=== PATIENT | female | born 1970 | race Caucasian/White ===

== ENCOUNTER 2017-02-28 16:17 | Emergency (ER) | payer OTHER, SELFPAY ==
--- NOTE | 2017-02-28 16:51 | ERPHSYRPT ---
- History of Present Illness Time Seen by Provider: 02/28/17 16:40 Source: patient Exam Limitations: no limitations Physician History: The patient is a 46-year-old female complaining of a sore throat and cough for 3 days. Her voice is now hoarse. She denies fever or chills. She did not receive her influenza vaccination this year. Her past medical history is significant for hypothyroidism with thyroid ablation, hypertension, and diabetes. Timing/Duration: gradual onset Severity: moderate ENT Location: throat Prearrival Treatment: no prearrival treatment Modifying Factors: Improves With: nothing Associated Symptoms: cough, sore throat Allergies/Adverse Reactions: No Known Drug Allergies Allergy (Unverified 02/28/17 16:52) Home Medications: Fluoxetine HCl 20 mg PO DAILY 02/28/17 [History] Levothyroxine Sodium [Tirosint] 137 mcg PO DAILY 02/28/17 [History] Metformin HCl 500 mg [Glucophage 500 MG] 500 mg PO DAILY 02/28/17 [History ] Metoprolol Succinate [Toprol Xl] 75 mg PO DAILY 02/28/17 [History] - Review of Systems Constitutional: No Fever, No Chills Eyes: No Symptoms Ears, Nose, & Throat: Throat Pain, Hoarse Respiratory: Cough Cardiac: No Chest Pain, No Edema, No Syncope Abdominal/Gastrointestinal: No Abdominal Pain, No Nausea, No Vomiting, No Diarrhea Genitourinary Symptoms: No Dysuria Musculoskeletal: No Back Pain, No Neck Pain Skin: No Rash Neurological: No Dizziness, No Focal Weakness, No Sensory Changes Psychological: No Symptoms Endocrine: No Symptoms Hematologic/Lymphatic: No Symptoms Immunological/Allergic: No Symptoms All Other Systems: Reviewed and Negative - Nursing Vital Signs Nursing Vital Signs: Initial Vital Signs Temperature 98.1 F 02/28/17 16:40 Pulse Rate 68 02/28/17 16:40 Respiratory Rate 18 02/28/17 16:40 Blood Pressure 122/72 02/28/17 16:40 O2 Sat by Pulse Oximetry 98 02/28/17 16:40 Pain Scale Pain Intensity 6 - Physical Exam General Appearance: no apparent distress, alert Eye Exam: bilateral eye: PERRL, EOMI Ear Exam: bilateral ear: auricle normal Nasal Exam: normal inspection Throat Exam: tongue swollen, tonsillar exudate Neck Exam: supple Cardiovascular/Respiratory Exam: normal breath sounds, regular rate/rhythm Abdominal Exam: non-tender, soft Neurologic Exam: alert, oriented x 3, sensation nml, No motor deficits Skin Exam: normal color, warm, dry SpO2 Interpretation: normal Ordered Tests: Active Orders 24 hr Category Date Time Status CULTURE, THROAT Stat Lab 02/28/17 17:07 Received STREP SCREEN-BETA A Stat Lab 02/28/17 17:07 Completed Lab/Rad Data: Laboratory Results 02/28/17 Range/Units 17:07 Streptococcus Screen NEGATIVE (Negative) - Progress Progress: unchanged Counseled pt/family regarding: lab results, diagnosis - Departure Time of Disposition: 17:36 Departure Disposition: Home Clinical Impression: Pharyngitis Condition: Stable Critical Care Time: No Additional Instructions: You have viral pharyngitis. The strep test was negative. Take Tylenol and ibuprofen as needed. Gargle with warm salt water as often as needed. Follow- up as needed.
[2017-02-28 17:55] VITALS: BP 106/63; PULSE 80; O2SAT 97
== END 2017-02-28 17:55 | disposition home or self-care (01) ==
LOC: ED 16:17
DX: J02.9 Acute pharyngitis, unspecified (principal)
CPT/HCPCS: 87070; 87430; 99283

== ENCOUNTER 2018-05-04 19:38 | Emergency (ER) | payer OTHER | END 2018-05-04 22:03 | disposition home or self-care (01) | LOC: ED 19:38 ==

== ENCOUNTER 2018-10-25 00:02 | Emergency (ER) | payer OTHER ==
--- NOTE | 2018-10-25 00:57 | ERPHSYRPT ---
- History of Present Illness Source: patient Exam Limitations: no limitations Patient Subjective Stated Complaint: Pt states, "I was at work at just felt sick. I would burp and vomit up in my throat, had indigestion and burning sensation. pt c/o having diarrhea as well but this has been an ongoing issue for years". Pt to see Dr. Alvarado on Monday regarding her diarrhea. Triage Nursing Assessment: pt ambulated to rm 5, alert and oriented. pt was at work tonight and started feeling ill. Pt kept burping and noticed vomiting in her mouth, gerd/indigestion and a burning in her throat. Pt c/o chronic diarrhea. Last diarrhea was 2300 tonight. Pt eating and drinking without diff. No bouts of nausea, vomiting or diarrhea since in the ER. Pt very talkative. Pt just started this job on Monday and needs a note since she left early. Physician History: the patient has a history of chronic diarrhea for over one year, most likely closer to 3 years. She was at work this evening and did not feel well, with some reflux symptoms with an acid sensation up the back of her throat, causing her malaise and having to leave work. Prior to arriving into the emergency department, the patient did not have any symptoms and denied any acute diarrhea at this time. Denies any abdominal pain, back pain, chest pain, shortness of breath, fevers, skin rashes, or any reflux symptoms or worsening malaise. Timing/Duration: today, resolved prior to arrival Severity: moderate Modifying Factors: Improves With: movement. Worsens With: cold therapy, eating , immobilization, medication, rest Associated Symptoms: heartburn, other (diarrhea), No nausea, No vomiting, No abdominal pain, No shortness of breath, No diaphoresis, No cough, No chills, No chest pain, No fever, No headaches, No loss of appetite, No malaise, No rash, No syncope, No seizure, No weakness Allergies/Adverse Reactions: blue dye Allergy (Verified 05/04/18 19:57) Home Medications: Levothyroxine Sodium [Tirosint] 125 mcg PO DAILY 02/28/17 [History] Metformin HCl 500 mg [Glucophage 500 MG] 500 mg PO DAILY 02/28/17 [History ] Metoprolol Succinate [Toprol Xl] 75 mg PO DAILY 02/28/17 [History] Norethindrone-Ethinyl Estrad [Pirmella 1-35-28 Tablet] 1 tab PO DAILY 10/25/18 [ History] PARoxetine HCl [Paroxetine HCl] 20 mg PO DAILY 10/25/18 [History] Hx Tetanus, Diphtheria Vaccination/Date Given: No (unknown) Hx Influenza Vaccination/Date Given: No Hx Pneumococcal Vaccination/Date Given: No Immunizations Up to Date: No - Review of Systems Constitutional: Malaise, No Fever, No Chills Eyes: No Symptoms, No Vision Changes Ears, Nose, & Throat: No Symptoms, No Mouth Swelling, No Painful Swallowing Respiratory: No Cough, No Dyspnea Cardiac: No Chest Pain, No Edema, No Syncope Abdominal/Gastrointestinal: Diarrhea, No Abdominal Pain, No Nausea, No Vomiting Genitourinary Symptoms: No Dysuria, No Hematuria, No Flank Pain Musculoskeletal: No Back Pain, No Neck Pain Skin: No Rash Neurological: No Dizziness, No Focal Weakness, No Sensory Changes Psychological: No Symptoms Endocrine: No Symptoms, No Excessive Sweating Hematologic/Lymphatic: No Easy Bleeding, No Easy Bruising All Other Systems: Reviewed and Negative - Past Medical History Pertinent Past Medical History: Yes Neurological History: Seizures, Other ENT History: No Pertinent History Cardiac History: Hypertension Respiratory History: No Pertinent History Endocrine Medical History: Diabetes Type II, Hypothyroidism Musculoskeletal History: Osteoarthritis GI Medical History: No Pertinent History History: No Pertinent History Psycho-Social History: Anxiety, Depression Female Reproductive Disorders: No Pertinent History Other Medical History: HX OF SEIZURES A CHILD BUT NOT ANY FOR YEARS AND IS NOT ON ANY MEDICATIONS. ANXIETY. SX HX - CHOLECYSTECTOMY - Past Surgical History Past Surgical History: Yes Neuro Surgical History: No Pertinent History Cardiac: No Pertinent History Respiratory: No Pertinent History Gastrointestinal: Cholecystectomy Genitourinary: No Pertinent History Musculoskeletal: No Pertinent History Female Surgical History: No Pertinent History Other Surgical History: thyroid removed with "radioactive iodine pill" - Social History Smoking Status: Former smoker Exposure to second hand smoke: No Drug Use: none Patient Lives Alone: Yes - Female History Hx Last Menstrual Period: 10/21/18 Hx Now: No - Nursing Vital Signs Nursing Vital Signs: Initial Vital Signs Temperature 98.0 F 10/25/18 00:12 Pulse Rate 78 10/25/18 00:12 Respiratory Rate 17 10/25/18 00:12 Blood Pressure 112/85 10/25/18 00:12 O2 Sat by Pulse Oximetry 100 10/25/18 00:12 Pain Scale Pain Intensity 0 - Physical Exam General Appearance: no apparent distress, alert Eye Exam: PERRL/EOMI, eyes nml inspection Ears, Nose, Throat Exam: normal ENT inspection, TMs normal, pharynx normal, moist mucous membranes, No dry mucous membranes, No pharyngeal erythema, No tonsillar exudate Neck Exam: normal inspection, non-tender, supple, full range of motion, No meningismus, No Brudzinski, No Kernig's, No lymphadenopathy Respiratory Exam: normal breath sounds, lungs clear, airway intact, No respiratory distress, No accessory muscle use, No crackles/rales, No rhonchi, No wheezing, No stridor Cardiovascular Exam: regular rate/rhythm, normal heart sounds, normal peripheral pulses, capillary refill <2 sec Gastrointestinal/Abdomen Exam: soft, normal bowel sounds, No tenderness, No mass , No pulsatile mass, No rebound Back Exam: normal inspection, normal range of motion, No CVA tenderness, No vertebral tenderness Extremity Exam: normal inspection, normal range of motion, pelvis stable Neurologic Exam: alert, oriented x 3, cooperative, normal mood/affect, nml cerebellar function, nml station & gait, sensation nml, No motor deficits Skin Exam: normal color, warm, dry, No rash, No jaundice, No cyanosis Lymphatic Exam: No adenopathy SpO2 Interpretation: normal SpO2: 100 O2 Delivery: Room Air Ordered Tests: Medication Summary Discontinued Medications Generic Name Dose Route Start Last Admin Trade Name Freq PRN Reason Stop Dose Admin Diphenoxylate HCl/Atropine 1 tablet 10/25/18 00:53 Lomotil PO 10/25/18 00:54 STAT ONE Famotidine 20 mg 10/25/18 00:54 Pepcid 20 Mg PO 10/25/18 00:55 STAT ONE - Progress Progress: unchanged Progress Note: 10/25/18 01:10 patient having a benign physical examination with no intra-abdominal findings, no concerning signs or symptoms, hemodynamically in good condition and a chronic issue with diarrhea as well as a reflux on the history, patiently discharged home to follow up with her primary care physician on 10/25/2018. Patient was given a work excuse and so patient could come on 10/24/2018 to the emergency department since she left her work. Counseled pt/family regarding: diagnosis, need for follow-up - Departure Departure Disposition: Home Clinical Impression: Chronic diarrhea, Malaise GERD (gastroesophageal reflux disease) Qualifiers: Esophagitis presence: esophagitis presence not specified Qualified Code(s): K21.9 - Gastro-esophageal reflux disease without esophagitis Condition: Good Critical Care Time: No Referrals: DAY ALVARADO [Primary Care Provider] - 10/25/18 Instructions: Diarrhea and Traveler's Diarrhea, Adult (DC), Diarrhea in Adolescents and Adults, Acid Reflux (Gastroesophageal Reflux Disease), Adult (DC ) Forms: Work/School Release Form
[2018-10-25] MEDS ORDERED: Lomotil ONE (01:33)
[2018-10-25] MEDS ORDERED: Pepcid 20 MG ONE (01:33)
[2018-10-25] MEDS: Pepcid 20 MG PO ONE (01:34)
[2018-10-25] MEDS: Lomotil PO ONE (01:34)
[2018-10-25 01:50] VITALS: BP 121/68; PULSE 70; O2SAT 99
== END 2018-10-25 01:40 | disposition home or self-care (01) ==
LOC: ED 00:02
DX: K52.9 Noninfective gastroenteritis and colitis, unspecified (principal); R53.81 Other malaise; K21.9 Gastro-esophageal reflux disease without esophagitis
CPT/HCPCS: 99283; A9270-GY

== ENCOUNTER 2019-01-23 16:19 | Emergency (ER) | payer OTHER ==
--- NOTE | 2019-01-23 17:07 | ERPHSYRPT ---
- History of Present Illness Time Seen by Provider: 01/23/19 16:50 Historian: patient Exam Limitations: no limitations Patient Subjective Stated Complaint: pt here for 3 loose stools today,she had to leave work early, no other co's Triage Nursing Assessment: pt alert, walked in, resp easy, skin w/d/p. movea all ext well, abd soft, Physician History: Long history of intermittent diarrhea following Allergies/Adverse Reactions: blue dye Allergy (Verified 01/23/19 16:59) Home Medications: Levothyroxine Sodium [Tirosint] 125 mcg PO DAILY 02/28/17 [History] Metformin HCl 500 mg [Glucophage 500 MG] 500 mg PO DAILY 02/28/17 [History ] Metoprolol Succinate [Toprol Xl] 75 mg PO DAILY 02/28/17 [History] Norethindrone-Ethinyl Estrad [Pirmella 1-35-28 Tablet] 1 tab PO DAILY 10/25/18 [ History] PARoxetine HCl [Paroxetine HCl] 20 mg PO DAILY 10/25/18 [History] Hx Tetanus, Diphtheria Vaccination/Date Given: No (unknown) Hx Influenza Vaccination/Date Given: No Hx Pneumococcal Vaccination/Date Given: No Immunizations Up to Date: Yes - Past Medical History Pertinent Past Medical History: Yes Neurological History: Seizures, Other ENT History: No Pertinent History Cardiac History: Hypertension Respiratory History: No Pertinent History Endocrine Medical History: Diabetes Type II, Hypothyroidism Musculoskeletal History: Osteoarthritis GI Medical History: No Pertinent History History: No Pertinent History Psycho-Social History: Anxiety, Depression Female Reproductive Disorders: No Pertinent History Other Medical History: HX OF SEIZURES A CHILD BUT NOT ANY FOR YEARS AND IS NOT ON ANY MEDICATIONS. ANXIETY. SX HX - CHOLECYSTECTOMY, pt is unsure if she is a diabetic - Past Surgical History Past Surgical History: Yes Neuro Surgical History: No Pertinent History Cardiac: No Pertinent History Respiratory: No Pertinent History Gastrointestinal: Cholecystectomy Genitourinary: No Pertinent History Musculoskeletal: No Pertinent History Female Surgical History: No Pertinent History Other Surgical History: thyroid removed with "radioactive iodine pill" - Social History Smoking Status: Former smoker Exposure to second hand smoke: No Drug Use: none Patient Lives Alone: Yes - Female History Hx Last Menstrual Period: last week Hx Now: No - Nursing Vital Signs Nursing Vital Signs: Initial Vital Signs Temperature 97.5 F 01/23/19 16:50 Pulse Rate 66 01/23/19 16:50 Respiratory Rate 16 01/23/19 16:50 Blood Pressure 121/69 01/23/19 16:50 O2 Sat by Pulse Oximetry 99 01/23/19 16:50 Pain Scale Pain Intensity 0 - Physical Exam SpO2: 99 - Course Nursing assessment & vital signs reviewed: Yes - Radiology Exams Abdomen X-ray Interpretation: Interpreted by me (nonspec gas stool pos: ibs s/s ) Ordered Tests: Active Orders 24 hr Category Date Time Status IV Insertion STAT Care 01/23/19 16:53 Active KUB Stat Exams 01/23/19 18:20 Taken CBC W DIFF Stat Lab 01/23/19 17:03 Completed CMP Stat Lab 01/23/19 17:03 Completed UA W/RFX UR CULTURE Stat Lab 01/23/19 17:33 Completed discussed labs/xrays with patient in depth Lab/Rad Data: Laboratory Result Diagrams 01/23/19 17:03 01/23/19 17:03 Laboratory Results 01/23/19 01/23/19 01/23/19 Range/Units 17:33 17:03 17:03 WBC 9.1 (4.0-10.5) K/mm3 RBC 3.92 L (4.1-5.4) M/mm3 Hgb 11.3 L (12.0-16.0) gm/dl Hct 36.3 (35-47) % MCV 92.6 (78-100) fl MCH 28.8 (26-32) pg MCHC 31.1 L (32-36) g/dl RDW 13.7 (11.5-14.0) % Plt Count 299 (150-450) K/mm3 MPV 9.9 H (6-9.5) fl Gran % 71.3 H (36.0-66.0) % Eos # (Auto) 0.13 (0-0.5) Absolute Lymphs (auto) 1.55 (1.0-4.6) Absolute Monos (auto) 0.90 (0.0-1.3) Lymphocytes % 17.1 L (24.0-44.0) % Monocytes % 9.9 (0.0-12.0) % Eosinophils % 1.4 (0.00-5.0) % Basophils % 0.3 (0.0-0.4) % Absolute Granulocytes 6.44 (1.4-6.9) Basophils # 0.03 (0-0.4) Sodium 141 (137-145) mmol/L Potassium 4.1 (3.5-5.1) mmol/L Chloride 106 (98-107) mmol/L Carbon Dioxide 26 (22-30) mmol/L Anion Gap 12.3 (5-15) MEQ/L BUN 8 (7-17) mg/dL Creatinine 0.69 (0.52-1.04) mg/dL Estimated GFR > 60.0 ML/MIN Glucose 84 (74-106) mg/dL Calcium 8.8 (8.4-10.2) mg/dL Total Bilirubin 0.20 (0.2-1.3) mg/dL AST 20 (14-36) U/L ALT 9 (0-35) U/L Alkaline Phosphatase 63 (38-126) U/L Serum Total Protein 7.5 (6.3-8.2) g/dL Albumin 3.8 (3.5-5.0) g/dL Urine Color STRAW (YELLOW) Urine Appearance CLEAR (CLEAR) Urine pH 7.0 (5-6) Ur Specific [place] 1.005 (1.005-1.025) Urine Protein NEGATIVE (Negative) Urine Ketones NEGATIVE (NEGATIVE) Urine Blood SMALL (0-5) Ras[place]ul Urine Nitrite NEGATIVE (NEGATIVE) Urine Bilirubin NEGATIVE (NEGATIVE) Urine Urobilinogen NEGATIVE (0-1) mg/dL Ur Leukocyte Esterase NEGATIVE (NEGATIVE) Urine WBC (Auto) 0-2 (0-5) /HPF Urine RBC (Auto) NONE (0-2) /HPF U Epithel Cells (Auto) NONE (FEW) /HPF Urine Bacteria (Auto) NONE (NEGATIVE) /HPF Urine Mucus (Auto) SLIGHT (NEGATIVE) /HPF Urine Culture Reflexed NO (NO) Urine Glucose NEGATIVE (NEGATIVE) mg/dL - Progress Progress: improved (diet as discussed follow up with pcp for GI consultation ) - Departure Departure Disposition: Home Clinical Impression: IBS (irritable bowel syndrome) Qualifiers: Irritable bowel syndrome type: with diarrhea Qualified Code(s): K58.0 - Irritable bowel syndrome with diarrhea Condition: Stable Critical Care Time: No Referrals: DAY ORELLANA [Primary Care Provider] -
[2019-01-23 17:08] LABS: Absolute Neutrophil Ct (ANC) 6.44 (1.4-6.9); BASOPHIL % 0.3 % (0.0-0.4); Basophil (Absolute #) 0.03 (0-0.4); Eosinophil % 1.4 % (0.00-5.0); Eosinophil (Absolute #) 0.13 (0-0.5); Hematocrit 36.3 % (35-47); Hemoglobin 11.3 gm/dl (12.0-16.0); Lymphocyte (Absolute #) 1.55 (1.0-4.6); Lymphocytes % 17.1 % (24.0-44.0); Mean Cell Volume 92.6 fl (78-100); Mean Corpuscular Hemoglobin 28.8 pg (26-32); Mean Corpuscular Hgb Concent. 31.1 g/dl (32-36); Mean Platelet Volume 9.9 fl (6-9.5); Monocytes % 9.9 % (0.0-12.0); Neutrophil % 71.3 % (36.0-66.0); Platelet Count 299 K/mm3 (150-450); Red Blood Count 3.92 M/mm3 (4.1-5.4); Red Cell Distribution Width 13.7 % (11.5-14.0); White Blood Count 9.1 K/mm3 (4.0-10.5)
[2019-01-23 17:21] LABS: ALBUMIN 3.8 g/dL (3.5-5.0); ALKALINE PHOSPHATASE 63 U/L (38-126); ANION GAP 12.3 MEQ/L (5-15); BLOOD UREA NITROGEN 8 mg/dL (7-17); CHLORIDE 106 mmol/L (98-107); Calcium 8.8 mg/dL (8.4-10.2); Carbon Dioxide 26 mmol/L (22-30); Creatinine 1 0.69 mg/dL (0.52-1.04); Glucose 84 mg/dL (74-106); Potassium 4.1 mmol/L (3.5-5.1); SGOT/AST 20 U/L (14-36); SGPT/ALT 9 U/L (0-35); SODIUM 141 mmol/L (137-145); Total Protein 7.5 g/dL (6.3-8.2)
[2019-01-23 17:43] VITALS: O2SAT 99
[2019-01-23 17:50] LABS: Appearance CLEAR (CLEAR); Bilirubin NEGATIVE (NEGATIVE); Blood SMALL Ery/ul (0-5); Glucose NEGATIVE (NEGATIVE); Ketones NEGATIVE (NEGATIVE); Leukocyte Esterase NEGATIVE (NEGATIVE); Mucus SLIGHT /HPF (NEGATIVE); Nitrite NEGATIVE (NEGATIVE); Protein,Urine Dip NEGATIVE (Negative); Specific Gravity 1.005 (1.005-1.025); Urobilinogen NEGATIVE mg/dL (0-1); WBC 0-2 /HPF (0-5)
[2019-01-23 18:23] VITALS: BP 121/74; PULSE 62
--- NOTE | 2019-01-24 08:47 | XRAY ---
Indication: Pain. Comparison: None KUB nonacute and nonobstructed with cholecystectomy clips. Solid organs unremarkable. Osseous structures intact with mild degenerative changes throughout the spine/both hips and minimal levoscoliosis. Impression: Negative KUB.
== END 2019-01-23 18:51 | disposition home or self-care (01) ==
LOC: ED 16:19
DX: K58.0 Irritable bowel syndrome with diarrhea (principal); Z79.899 Other long term (current) drug therapy
CPT/HCPCS: 36415; 74018; 80053; 81001; 85025; 99284

== ENCOUNTER 2019-05-21 14:40 | Emergency (ER) | payer OTHER ==
--- NOTE | 2019-05-21 15:23 | ERPHSYRPT ---
- History of Present Illness Time Seen by Provider: 05/21/19 14:58 Source: patient Exam Limitations: no limitations Patient Subjective Stated Complaint: Pt stated that since Monday she has had a dry cough, sore throat, tiredness, and has her chronic diarrhea, she came to be "tested for the Kerns", requested a note for work Triage Nursing Assessment: Pt brought self to the ER, vitals wnl, pulses normal , skin n/w/d, lungs clear, doesn't appear to be in any distress Physician History: Patient is a 40-year-old female with 3 to 4 days duration of dry cough, sore throat and some mild abdominal pain. Denies fever or any other upper respiratory symptoms. Denies shortness of breath. Patient also mentions of diarrhea which is chronic. Patient has some concerns about the coronavirus. Denies any sick contacts or travel out of state. Timing/Duration: day(s) (3-4) Cough Quality/Degree: dry cough Possible Cause: occasional episodes Modifying Factors: Improves With: coughing Associated Symptoms: nasal congestion, nasal drainage, sore throat International travel in last 2 weeks: No Allergies/Adverse Reactions: blue dye Allergy (Verified 05/21/19 15:08) Home Medications: Levothyroxine Sodium [Tirosint] 150 mcg PO DAILY 02/28/17 [History] Metformin HCl 500 mg [Glucophage 500 MG] 500 mg PO DAILY 02/28/17 [History ] Metoprolol Succinate [Toprol Xl] 75 mg PO DAILY 02/28/17 [History] Norethindrone-Ethin. Estradiol [Pirmella 1-35-28 Tablet] 1 tab PO DAILY [History] PARoxetine HCL [Paroxetine HCl] 20 mg PO DAILY 10/25/18 [History] Hx Tetanus, Diphtheria Vaccination/Date Given: No (unknown) Hx Influenza Vaccination/Date Given: No Hx Pneumococcal Vaccination/Date Given: No Travel Risk - International Travel Have you traveled outside of the country in past 3 weeks: No Have you or anyone close to you been diagnosed with or: No Do your reside in a community with a known COVID-19 case?: Yes If Yes where:: [facility] [place] - Coronavirus Screening Has patient experienced Coronavirus symptoms: Yes Symptoms experienced: respiratory symptoms (i.e.Cought,shortness of breath) - Review of Systems Constitutional: No Fever, No Chills Eyes: No Symptoms Ears, Nose, & Throat: Nose Congestion, Sinus Drainage, Throat Pain Respiratory: Cough Cardiac: No Chest Pain, No Edema, No Syncope Abdominal/Gastrointestinal: Abdominal Pain, Diarrhea (chronic), No Nausea, No Vomiting Genitourinary Symptoms: No Dysuria Musculoskeletal: No Back Pain, No Neck Pain Skin: No Rash Neurological: No Dizziness, No Focal Weakness, No Sensory Changes Psychological: No Symptoms Endocrine: No Symptoms - Past Medical History Pertinent Past Medical History: Yes Neurological History: Seizures, Other ENT History: No Pertinent History Cardiac History: Hypertension Respiratory History: No Pertinent History Endocrine Medical History: Diabetes Type II, Hypothyroidism Musculoskeletal History: Osteoarthritis GI Medical History: No Pertinent History History: No Pertinent History Psycho-Social History: Anxiety, Depression Female Reproductive Disorders: No Pertinent History Other Medical History: HX OF SEIZURES A CHILD BUT NOT ANY FOR YEARS AND IS NOT ON ANY MEDICATIONS. ANXIETY. SX HX - CHOLECYSTECTOMY - Past Surgical History Past Surgical History: Yes Neuro Surgical History: No Pertinent History Cardiac: No Pertinent History Respiratory: No Pertinent History Gastrointestinal: Cholecystectomy Genitourinary: No Pertinent History Musculoskeletal: No Pertinent History Female Surgical History: No Pertinent History Other Surgical History: thyroid removed with "radioactive iodine pill" - Social History Smoking Status: Former smoker Exposure to second hand smoke: No Drug Use: none Patient Lives Alone: Yes - Female History Hx Now: No - Nursing Vital Signs Nursing Vital Signs: Initial Vital Signs Temperature 97.8 F 05/21/19 14:57 Pulse Rate 72 05/21/19 14:57 Respiratory Rate 12 05/21/19 14:57 Blood Pressure 129/74 05/21/19 14:57 O2 Sat by Pulse Oximetry 98 05/21/19 14:57 - Physical Exam General Appearance: no apparent distress, alert Eye Exam: PERRL/EOMI, eyes nml inspection Ears, Nose, Throat Exam: normal ENT inspection, TMs normal, moist mucous membranes, pharyngeal erythema Neck Exam: normal inspection, non-tender, supple, full range of motion Respiratory Exam: normal breath sounds, lungs clear, No respiratory distress Cardiovascular Exam: regular rate/rhythm, normal heart sounds Gastrointestinal/Abdomen Exam: soft, No tenderness Pelvic Exam: deferred Back Exam: normal inspection, No CVA tenderness, No vertebral tenderness Extremity Exam: normal inspection, normal range of motion Neurologic Exam: alert, oriented x 3, cooperative, normal mood/affect, sensation nml, No motor deficits Skin Exam: normal color, warm, dry, No rash Lymphatic Exam: No adenopathy SpO2: 98 - Course Nursing assessment & vital signs reviewed: Yes Lab/Rad Data: Laboratory Results 05/21/19 Range/Units 14:47 Influenza Type A Ag NEGATIVE (NEGATIVE) Influenza Type B Ag NEGATIVE (NEGATIVE) RSV (PCR) NEGATIVE (Negative) Group A Strep Antibody NOT DETECTED (NEGATIVE) - Progress Progress: improved Air Movement: good Progress Note: 05/21/19 15:51 Patient without any issues here. No acute distress. All swabs are negative. Patient was content with work-up. Patient realizes it could be allergies and we will treated as such. Few [id number] options were discussed. Will discharge home. Blood Culture(s) Obtained: No Antibiotics given: No Counseled pt/family regarding: lab results, diagnosis, need for follow-up - Departure Departure Disposition: Home Clinical Impression: Allergic rhinitis Condition: Stable Critical Care Time: No Referrals: DAY ORELLANA [Primary Care Provider] - Instructions: Seasonal Allergies (DC) Additional Instructions: Monitor symptoms closely. Consider [id number] allergy medicine. Follow- up with your PCP in 2 to 3 days for recheck. Return to ER if worse. Forms: Work/School Release Form
[2019-05-21 15:38] VITALS: PULSE 65
[2019-05-21 15:44] LABS: INFLUENZA A NEGATIVE (NEGATIVE); INFLUENZA B NEGATIVE (NEGATIVE); RESPIRATORY SYNCTIAL VIRUS NEGATIVE (Negative)
[2019-05-21 16:08] VITALS: BP 123/69; O2SAT 100
== END 2019-05-21 16:08 | disposition home or self-care (01) ==
LOC: ED 14:40
DX: J30.9 Allergic rhinitis, unspecified (principal)
CPT/HCPCS: 87631; 87651; 99283

== ENCOUNTER 2019-12-16 13:28 | Emergency (ER) | payer OTHER ==
--- NOTE | 2019-12-16 13:34 | ERPHSYRPT ---
- History of Present Illness Time Seen by Provider: 12/16/19 13:34 Source: patient Exam Limitations: no limitations Physician History: This is a 49-year-old female who has been asymptomatic except for a fever approximately noon today while at work. Upon patient arrival to the emergency department, her temperature was taken 4 different times and she is afebrile. Again, patient has no other symptoms. However, her work wanted her evaluated. She is aware, upon arrival that she will not be receiving a rapid COVID-19 test. It is a send out test for us in the emergency department in this nonemergent setting. Patient denies headache, she denies cough, she denies dysuria or hematuria, she denies diarrhea, she denies sore throat or earaches. Timing/Duration: today Fever Severity: gone Fever Therapy FEE CLERK: none Associated Symptoms: denies symptoms Allergies/Adverse Reactions: blue dye Allergy (Verified 05/21/19 15:08) Home Medications: Levothyroxine Sodium [Tirosint] 175 mcg PO DAILY 02/28/17 [History] Metoprolol Succinate [Toprol Xl] 75 mg PO DAILY 02/28/17 [History] PARoxetine HCL [Paroxetine HCl] 20 mg PO DAILY 10/25/18 [History] Hx Tetanus, Diphtheria Vaccination/Date Given: No (unknown) Hx Influenza Vaccination/Date Given: No Hx Pneumococcal Vaccination/Date Given: No Travel Risk - International Travel Have you traveled outside of the country in past 3 weeks: No - Coronavirus Screening Are you exhibiting any of the following symptoms?: No Close contact with a COVID-19 positive Pt in past 14-21 Days: No - Review of Systems Constitutional: Fever Eyes: No Symptoms Ears, Nose, & Throat: No Symptoms Respiratory: No Symptoms Cardiac: No Symptoms Abdominal/Gastrointestinal: No Symptoms Genitourinary Symptoms: No Symptoms Musculoskeletal: No Symptoms Skin: No Symptoms Neurological: No Symptoms Psychological: No Symptoms Endocrine: No Symptoms Hematologic/Lymphatic: No Symptoms Immunological/Allergic: No Symptoms All Other Systems: Reviewed and Negative - Past Medical History Pertinent Past Medical History: Yes Neurological History: Seizures, Other ENT History: No Pertinent History Cardiac History: Hypertension Respiratory History: No Pertinent History Endocrine Medical History: Diabetes Type II, Hypothyroidism Musculoskeletal History: Osteoarthritis GI Medical History: No Pertinent History History: No Pertinent History Psycho-Social History: Anxiety, Depression Female Reproductive Disorders: No Pertinent History Other Medical History: HX OF SEIZURES A CHILD BUT NOT ANY FOR YEARS AND IS NOT ON ANY MEDICATIONS. ANXIETY. SX HX - CHOLECYSTECTOMY - Past Surgical History Past Surgical History: Yes Neuro Surgical History: No Pertinent History Cardiac: No Pertinent History Respiratory: No Pertinent History Gastrointestinal: Cholecystectomy Genitourinary: No Pertinent History Musculoskeletal: No Pertinent History Female Surgical History: No Pertinent History Other Surgical History: thyroid removed with "radioactive iodine pill" - Social History Smoking Status: Former smoker Exposure to second hand smoke: No Drug Use: none Patient Lives Alone: Yes - Nursing Vital Signs Nursing Vital Signs: Initial Vital Signs Temperature 98.1 F 12/16/19 14:40 Pulse Rate 62 12/16/19 14:40 Respiratory Rate 20 12/16/19 14:40 Blood Pressure 110/56 12/16/19 14:40 Pain Scale Pain Intensity 0 - Physical Exam General Appearance: no apparent distress, alert, obese Eye Exam: PERRL/EOMI, eyes nml inspection ENT Exam: normal ENT inspection, TMs normal Neck Exam: normal inspection, non-tender, supple, full range of motion, trachea midline Respiratory Exam: normal breath sounds, chest non-tender, lungs clear, no respiratory distress, no accessory muscle use, No respiratory distress Cardiovascular/Chest Exam: normal heart sounds, regular rate/rhythm Gastrointestinal/Abdominal Exam: soft, non tender, no distention, no mass, no guarding, No guarding, No rebound, No tenderness Pelvic Exam: not done Rectal Exam: not done Extremity Exam: non-tender Neurologic Exam: alert, oriented x 3, cooperative, rough planer tender II-XII nml as tested, normal mood/affect, nml cerebellar function, nml station & gait, sensation nml Skin Exam: normal color, warm, dry Lymphatic: No adenopathy SpO2 Interpretation: normal O2 Delivery: Room Air Ordered Tests: Active Orders 24 hr Category Date Time Status UA W/RFX UR CULTURE Stat Lab 12/16/19 14:57 Completed Lab/Rad Data: Laboratory Results 12/16/19 12/16/19 12/16/19 Range/Units 15:20 15:20 14:57 Urine Color YELLOW (YELLOW) Urine Appearance CLEAR (CLEAR) Urine pH 5.0 (5-6) Ur Specific Porter 1.025 (1.005-1.025) Urine Protein NEGATIVE (Negative) Urine Ketones NEGATIVE (NEGATIVE) Urine Blood MODERATE (0-5) Ras/ul Urine Nitrite NEGATIVE (NEGATIVE) Urine Bilirubin NEGATIVE (NEGATIVE) Urine Urobilinogen NEGATIVE (0-1) mg/dL Ur Leukocyte Esterase NEGATIVE (NEGATIVE) Urine WBC (Auto) 3-5 (0-5) /HPF Urine RBC (Auto) 26-50 (0-2) /HPF U Epithel Cells (Auto) RARE (FEW) /HPF Urine Bacteria (Auto) NONE (NEGATIVE) /HPF Urine Mucus (Auto) SLIGHT (NEGATIVE) /HPF Urine Culture Reflexed NO (NO) Urine Glucose NEGATIVE (NEGATIVE) mg/dL Influenza Type A Ag NEGATIVE (NEGATIVE) Influenza Type B Ag NEGATIVE (NEGATIVE) RSV (PCR) NEGATIVE (Negative) Group A Strep Antibody NOT DETECTED (NEGATIVE) - Progress Progress: unchanged Counseled pt/family regarding: lab results, diagnosis, need for follow-up - Departure Departure Disposition: Home Clinical Impression: Encounter for medical screening examination Condition: Stable Critical Care Time: No Referrals: DAY [facility]RELL[facility] [NON-STAFF PHY W/O PRIVILEGES] - Additional Instructions: Drink plenty of fluids. Use Tylenol and ibuprofen if not allergic for any fever or pain control. Contact your primary care physician in 72 hours to see if your Covid test has returned.
[2019-12-16 14:49] VITALS: PULSE 62
[2019-12-16 15:46] LABS: Appearance CLEAR (CLEAR); Bilirubin NEGATIVE (NEGATIVE); Blood MODERATE Ery/ul (0-5); Epithelial Cells RARE /HPF (FEW); Glucose NEGATIVE (NEGATIVE); Ketones NEGATIVE (NEGATIVE); Leukocyte Esterase NEGATIVE (NEGATIVE); Mucus SLIGHT /HPF (NEGATIVE); Nitrite NEGATIVE (NEGATIVE); Protein,Urine Dip NEGATIVE (Negative); RBC 26-50 /HPF (0-2); Specific Gravity 1.025 (1.005-1.025); Urobilinogen NEGATIVE mg/dL (0-1)
[2019-12-16 16:01] LABS: INFLUENZA A NEGATIVE (NEGATIVE); INFLUENZA B NEGATIVE (NEGATIVE); RESPIRATORY SYNCTIAL VIRUS NEGATIVE (Negative)
[2019-12-16 16:43] VITALS: BP 115/59; O2SAT 96
== END 2019-12-16 16:40 | disposition home or self-care (01) ==
LOC: ED 13:28
DX: Z13.9 Encounter for screening, unspecified (principal); E11.9 Type 2 diabetes mellitus without complications; E03.9 Hypothyroidism, unspecified; Z79.899 Other long term (current) drug therapy
CPT/HCPCS: 81001; 87631; 87651; 99283; U0003

== ENCOUNTER 2020-04-18 20:03 | Emergency (ER) | payer OTHER ==
[2020-04-18 20:18] VITALS: O2SAT 98
--- NOTE | 2020-04-18 21:19 | ERPHSYRPT ---
- History of Present Illness Historian: patient Exam Limitations: no limitations Patient Subjective Stated Complaint: Patient states " I am bound up and I have never been this bad and I am exhausted with straining". Triage Nursing Assessment: Patient arrived to ED and ambulated to room without difficulty. Patient gait slow and steady. Patient A/O times 4. Patient able to follow instructions without difficulty. Lungs clear bilateral A/P throughout. Patient denies chest pain or SOB. Patient cap refill < 3 seconds. No S/S of acute respiratory distress noted. Neuro assesment WNL. + BS times 4 quads. ABD soft, round, obese and non-distended. Patient denies any N/V. Patient states she has passed stool multiple times today but only small amounts and it was hard. Patient states she is passing gas. Patient denies any pain or discomfort upon palpitation. + Radial and pedal pulses bilateral. Non-pitting edema noted to bilateral extremities. Patient states her appetite and food intake is her normal. Patient denies pain or discomfort and states she just feels bloated. Physician History: 49 yo wf complains of rectal pain/constipation x 6.5hr. She denies melena/hematochezia/fever/dysuria/hematuria/N/V. Timing/Duration: other (6.5 hr) Activities at Onset: rest Quality: other (rectal pain) Abdominal Pain Onset Location: other (Rectal pain) Pain Radiation: no radiation Severity of Pain-Max: mild Severity of Pain-Current: mild Modifying Factors: Improves With: nothing, defecating Associated Symptoms: denies symptoms Previous symptoms: no prior history Allergies/Adverse Reactions: blue dye Allergy (Verified 04/18/20 20:18) Home Medications: Levothyroxine Sodium [Tirosint] 175 mcg PO DAILY 02/28/17 [History] Metoprolol Succinate [Toprol Xl] 75 mg PO DAILY 02/28/17 [History] PARoxetine HCL [Paroxetine HCl] 30 mg PO DAILY 10/25/18 [History] Oxybutynin Chloride Xl 5 mg [Ditropan XL 5 MG] 5 mg PO DAILY 04/18/20 [History] Hx Tetanus, Diphtheria Vaccination/Date Given: No Hx Influenza Vaccination/Date Given: No Hx Pneumococcal Vaccination/Date Given: No Immunizations Up to Date: Yes Travel Risk - International Travel Have you traveled outside of the country in past 3 weeks: No - Coronavirus Screening Are you exhibiting any of the following symptoms?: No Close contact with a COVID-19 positive Pt in past 14-21 Days: No - Review of Systems Constitutional: No Symptoms Eyes: No Symptoms Ears, Nose, & Throat: No Symptoms Respiratory: No Symptoms Cardiac: No Symptoms Abdominal/Gastrointestinal: Constipation, No Abdominal Pain, No Nausea, No Vomiting, No Diarrhea, No Hematemesis, No Hematochezia, No Melena, No Dysphagia, No Appetite Changes Genitourinary Symptoms: No Symptoms Musculoskeletal: No Symptoms Skin: No Symptoms Neurological: No Symptoms Psychological: No Symptoms Endocrine: No Symptoms Hematologic/Lymphatic: No Symptoms Immunological/Allergic: No Symptoms - Past Medical History Pertinent Past Medical History: Yes Neurological History: Seizures, Other ENT History: No Pertinent History Cardiac History: Hypertension Respiratory History: No Pertinent History Endocrine Medical History: Diabetes Type II, Hypothyroidism Musculoskeletal History: Osteoarthritis GI Medical History: No Pertinent History History: No Pertinent History Psycho-Social History: Anxiety, Depression Female Reproductive Disorders: No Pertinent History Other Medical History: HX OF SEIZURES A CHILD BUT NOT ANY FOR YEARS AND IS NOT ON ANY MEDICATIONS. ANXIETY. SX HX - CHOLECYSTECTOMY - Past Surgical History Past Surgical History: Yes Neuro Surgical History: No Pertinent History Cardiac: No Pertinent History Respiratory: No Pertinent History Gastrointestinal: Cholecystectomy Genitourinary: No Pertinent History Musculoskeletal: No Pertinent History Female Surgical History: No Pertinent History Other Surgical History: thyroid removed with "radioactive iodine pill" - Social History Smoking Status: Former smoker Exposure to second hand smoke: Yes Drug Use: none Patient Lives Alone: Yes Significant Family History: no pertinent family hx - Female History Hx Last Menstrual Period: 04/11/20 Hx Now: No - Nursing Vital Signs Nursing Vital Signs: Initial Vital Signs Temperature 98.8 F 04/18/20 20:15 Pulse Rate 65 04/18/20 20:15 Respiratory Rate 18 04/18/20 20:15 Blood Pressure 132/64 04/18/20 20:15 O2 Sat by Pulse Oximetry 98 04/18/20 20:15 Pain Scale Pain Intensity 0 - Physical Exam General Appearance: no apparent distress Eye Exam: PERRL/EOMI, eyes nml inspection Ears, Nose, Throat Exam: normal ENT inspection, TMs normal, moist mucous membranes Neck Exam: normal inspection, non-tender, supple, full range of motion, No meningismus, No mass, No Brudzinski, No Kernig's Respiratory Exam: normal breath sounds, lungs clear, airway intact Cardiovascular Exam: regular rate/rhythm, normal heart sounds, normal peripheral pulses, No murmur Gastrointestinal/Abdomen Exam: soft, normal bowel sounds, No tenderness Rectal Exam: deferred Back Exam: normal inspection, normal range of motion, No CVA tenderness, No vertebral tenderness Extremity Exam: normal inspection, normal range of motion Neurologic Exam: alert, oriented x 3, cooperative, i&c tech II-XII nml as tested, normal mood/affect, nml cerebellar function, nml station & gait, sensation nml, No motor deficits, No sensory deficit Skin Exam: normal color, warm, dry Lymphatic Exam: No adenopathy SpO2 Interpretation: normal SpO2: 98 O2 Delivery: Room Air - Course Nursing assessment & vital signs reviewed: Yes - Radiology Exams Abdomen X-ray Interpretation: Interpreted by me (Rectal impaction/constipation) Ordered Tests: Active Orders 24 hr Category Date Time Status OBSTR/ACUTE ABDOMEN SERIES Stat Exams 04/18/20 20:36 Taken - Progress Progress Note: 04/18/20 21:27 Pt given Fleets enema to take home, along w Rx for Lactulose Counseled pt/family regarding: need for follow-up, rad results - Departure Departure Disposition: Home Clinical Impression: Constipation Condition: Stable Critical Care Time: No Referrals: MARIELA AGUIRRE [Primary Care Provider] - Instructions: Constipation, Adult (DC) Additional Instructions: Try Fleets enemas and start Lactulose Increase fluid intake Start a daily stool softener Prescriptions: Lactulose 20 gm PO BID PRN PRN #200 ml PRN Reason: Constipation
[2020-04-18 21:44] VITALS: BP 121/76; PULSE 65
--- NOTE | 2020-04-19 07:29 | XRAY ---
Indication: Constipation. Comparison: [facility] January 23, 2019. 2 view abdomen remains nonacute and nonobstructed with now mild diffuse fecal debris predominantly in the right hemicolon. Stable bony degenerative changes, pelvic phleboliths, and cholecystectomy clips. Single PA chest demonstrates normal heart and lungs with incidental right hemidiaphragm elevation. Bony thorax intact with minimal degenerative changes. Impression: Negative abdomen. Nonacute 1 view chest.
== END 2020-04-18 21:44 | disposition home or self-care (01) ==
LOC: ED 20:03
DX: K59.00 Constipation, unspecified (principal); K62.89 Other specified diseases of anus and rectum; Z79.899 Other long term (current) drug therapy; I10 Essential (primary) hypertension; E11.9 Type 2 diabetes mellitus without complications; E03.9 Hypothyroidism, unspecified
CPT/HCPCS: 74022; 99283

== ENCOUNTER 2020-06-20 20:47 | Emergency (ER) | payer OTHER ==
--- NOTE | 2020-06-20 21:38 | ERPHSYRPT ---
- History of Present Illness Time Seen by Provider: 06/20/20 21:24 Source: patient Exam Limitations: no limitations Patient Subjective Stated Complaint: "I was coughing so hard it hurt my chest." Triage Nursing Assessment: Reported sore throat progressing to a cough today. Reported wheezing. Reported coughing so hard that it hurt her chest. Reported headache. Denied vomiting, diarrhea, muscle aches. Denied any loss of consciousness. Denied chest pain at this time. Denied shortness of breath. Pupils 3mm bilateral. Oral mucosa pink/moist. oropharynx slightly errythmatous. Neck supple without lymphedema. TMs [place] with positive cone of light. Symmetrical chest excursion. heart tones S1/S2 regular rate and rhythm without extra sounds. Lungs vesicular with adequate airflow and no adventitious sounds. Abdomen obese non-tender. Peripheral pulses +3 bilateral. No noted dependent edema. Physician History: 49 years old female presented in the ER via EMS with chief complaint of coughing so hard that she was hurting in the chest prior to arrival. Patient report wet to dry cough for the last couple of days and worse since morning. Patient reports she was hurting earlier but is completely back to normal. She has no fever but has some mild headache and muscle aches. She has been tested 3 times for Covid which was negative. Patient does not want anything to be done and wants some cough drops. No fever or chills reported. Timing/Duration: today, sudden, improved Cough Quality/Degree: moderate, dry cough, productive cough Possible Cause: no prior episodes Modifying Factors: Worsens With: coughing Associated Symptoms: cough, headache, muscle aches Allergies/Adverse Reactions: blue dye Allergy (Verified 06/20/20 20:48) Home Medications: Levothyroxine Sodium [Tirosint] 125 mcg PO DAILY 02/28/17 [History] Metoprolol Succinate [Toprol Xl] 75 mg PO DAILY 02/28/17 [History] PARoxetine HCL [Paroxetine HCl] 30 mg PO DAILY 10/25/18 [History] Oxybutynin Chloride Xl 5 mg [Ditropan XL 5 MG] 10 mg PO DAILY 04/18/20 [History] Norethindrone-Ethin. Estradiol [Pirmella 1-35 28 Tablet] 1 tab PO DAILY 06/20/20 [History] Hx Tetanus, Diphtheria Vaccination/Date Given: No Hx Influenza Vaccination/Date Given: No Hx Pneumococcal Vaccination/Date Given: No Travel Risk - International Travel Have you traveled outside of the country in past 3 weeks: No - Coronavirus Screening Are you exhibiting any of the following symptoms?: No Close contact with a COVID-19 positive Pt in past 14-21 Days: No - Vaccine Status Have you recieved a Covid-19 vaccination: No - Review of Systems Constitutional: No Symptoms Eyes: No Symptoms Ears, Nose, & Throat: No Symptoms Respiratory: Cough Cardiac: No Symptoms Abdominal/Gastrointestinal: No Symptoms Genitourinary Symptoms: No Symptoms Musculoskeletal: No Symptoms, Myalgias Skin: No Symptoms Neurological: No Symptoms Psychological: Anxiety Endocrine: No Symptoms Hematologic/Lymphatic: No Symptoms Immunological/Allergic: No Symptoms - Past Medical History Pertinent Past Medical History: Yes Neurological History: Seizures, Other ENT History: No Pertinent History Cardiac History: Hypertension Respiratory History: No Pertinent History Endocrine Medical History: Diabetes Type II, Hypothyroidism Musculoskeletal History: Osteoarthritis GI Medical History: No Pertinent History History: No Pertinent History Psycho-Social History: Anxiety, Depression Female Reproductive Disorders: No Pertinent History Other Medical History: HX OF SEIZURES A CHILD BUT NOT ANY FOR YEARS AND IS NOT ON ANY MEDICATIONS. ANXIETY. SX HX - CHOLECYSTECTOMY - Past Surgical History Past Surgical History: Yes Neuro Surgical History: No Pertinent History Cardiac: No Pertinent History Respiratory: No Pertinent History Gastrointestinal: Cholecystectomy Genitourinary: No Pertinent History Musculoskeletal: No Pertinent History Female Surgical History: No Pertinent History Other Surgical History: thyroid removed with "radioactive iodine pill" - Social History Smoking Status: Former smoker Exposure to second hand smoke: Yes Drug Use: none Patient Lives Alone: Yes Significant Family History: no pertinent family hx - Female History Hx Now: No - Nursing Vital Signs Nursing Vital Signs: Initial Vital Signs Temperature 98.3 F 06/20/20 20:48 Pulse Rate 69 06/20/20 20:48 Respiratory Rate 20 06/20/20 20:48 Blood Pressure 117/82 06/20/20 20:48 O2 Sat by Pulse Oximetry 98 06/20/20 20:48 Pain Scale Pain Intensity 0 - Physical Exam General Appearance: no apparent distress, alert, anxiety Eye Exam: PERRL/EOMI, eyes nml inspection Ears, Nose, Throat Exam: normal ENT inspection, TMs normal, pharynx normal Neck Exam: normal inspection, non-tender, supple, full range of motion Respiratory Exam: normal breath sounds, lungs clear, No chest tenderness Cardiovascular Exam: regular rate/rhythm, normal heart sounds Gastrointestinal/Abdomen Exam: soft, No tenderness Back Exam: normal inspection, normal range of motion Extremity Exam: normal inspection, normal range of motion Neurologic Exam: alert, oriented x 3, cooperative, tool operator II-XII nml as tested, normal mood/affect Skin Exam: normal color SpO2 Interpretation: normal SpO2: 98 O2 Delivery: Room Air - Progress Progress: improved Air Movement: good Progress Note: 06/20/20 21:36 49 years old is evaluated for rectal dry cough with coughing so hard to cause some chest discomfort. It is improved prior to arrival in the ER. She is not in any distress. Oxygen saturation 99% on room air. Not in any distress at all. Lungs bilateral clear to auscultation. Recommended imaging and work-up including Covid test but patient refused and wants to go home with a prescription of cough drops. I would start her on Tessalon Perles. Recommended outpatient follow-up. Discussed signs symptoms of worsening needing return to ER which she seemed understanding. Does not seem to be cardiac in nature at all. Blood Culture(s) Obtained: No Antibiotics given: No Counseled pt/family regarding: diagnosis, need for follow-up - Departure Departure Disposition: Home Clinical Impression: URI with cough and congestion Condition: Stable Critical Care Time: No Referrals: MARIELA AGUIRRE [Primary Care Provider] - (23 days for reevaluation) Instructions: Cough, Adult (DC) Additional Instructions: Continue with your cough syrup. Follow-up with primary care for reevaluation. Return to ER for worsening cough or if develop fever chills/shortness of breath/chest pain etc. Prescriptions: Benzonatate [Tessalon Perle] 200 mg PO TID #12 capsule
[2020-06-20 21:51] VITALS: BP 108/69; PULSE 64
[2020-06-20 22:54] VITALS: O2SAT 98
== END 2020-06-20 21:54 | disposition home or self-care (01) ==
LOC: ED 20:47
DX: Q04.3 Other reduction deformities of brain (principal); J06.9 Acute upper respiratory infection, unspecified; R05 Cough; R09.89 Other specified symptoms and signs involving the circulatory and respiratory systems
CPT/HCPCS: 99283

== ENCOUNTER 2020-06-21 11:49 | Emergency (ER) | payer OTHER ==
[2020-06-21 11:55] VITALS: O2SAT 98
--- NOTE | 2020-06-21 12:30 | ERPHSYRPT ---
- History of Present Illness Source: patient, EMS Exam Limitations: no limitations Patient Subjective Stated Complaint: Pt was here last night for a cough and was diagnosed with bronchitis and she's back today and does not agree with the diagnosis Triage Nursing Assessment: Pt brought to the ER by EMS, vitals wnl, rates pain 6/10 in the chest due to coughing, talking with no problems, no cough heard, doesn't appear to be in any distress, pt has not picked up her prescription from the pharmacy that she was prescribed yesterday Physician History: 49 yo wf w cough x 4 days. Pt seen in ER for same problem last night. She also took an ambulance to ER last night. She has had coryza wo fever/N/V/D. Pt has had some chest pain w coughing only. She smoked 1ppd until 14 yrs ago. Timing/Duration: other (4 days) Possible Cause: no prior episodes Modifying Factors: Improves With: coughing Associated Symptoms: cough, nasal congestion, nasal drainage, shortness of breath, No fever, No chills, No chest pain/soreness, No dizziness, No earache, No facial pain, No headache, No lightheadedness, No muscle aches, No sinus infection, No sore throat, No wheezing Allergies/Adverse Reactions: blue dye Allergy (Verified 06/21/20 11:55) Home Medications: Levothyroxine Sodium [Tirosint] 125 mcg PO DAILY 02/28/17 [History] Metoprolol Succinate [Toprol Xl] 75 mg PO DAILY 02/28/17 [History] PARoxetine HCL [Paroxetine HCl] 30 mg PO DAILY 10/25/18 [History] Oxybutynin Chloride Xl 5 mg [Ditropan XL 5 MG] 10 mg PO DAILY 04/18/20 [History] Norethindrone-Ethin. Estradiol [Pirmella 1-35 28 Tablet] 1 tab PO DAILY 06/20/20 [History] Hx Tetanus, Diphtheria Vaccination/Date Given: No Hx Influenza Vaccination/Date Given: No Hx Pneumococcal Vaccination/Date Given: No Travel Risk - International Travel Have you traveled outside of the country in past 3 weeks: No - Coronavirus Screening Are you exhibiting any of the following symptoms?: No - Vaccine Status Have you recieved a Covid-19 vaccination: No - Review of Systems Constitutional: No Symptoms Eyes: No Symptoms Ears, Nose, & Throat: No Symptoms Respiratory: No Symptoms, Cough, Dyspnea on Exertion (HERNÁNDEZ) Cardiac: No Chest Pain Abdominal/Gastrointestinal: No Symptoms Genitourinary Symptoms: No Symptoms Musculoskeletal: No Symptoms Skin: No Symptoms Neurological: No Symptoms Psychological: No Symptoms Endocrine: No Symptoms Hematologic/Lymphatic: No Symptoms Immunological/Allergic: No Symptoms - Past Medical History Pertinent Past Medical History: Yes Neurological History: Seizures, Other ENT History: No Pertinent History Cardiac History: Hypertension Respiratory History: No Pertinent History Endocrine Medical History: Diabetes Type II, Hypothyroidism Musculoskeletal History: Osteoarthritis GI Medical History: No Pertinent History History: No Pertinent History Psycho-Social History: Anxiety, Depression Female Reproductive Disorders: No Pertinent History Other Medical History: HX OF SEIZURES A CHILD BUT NOT ANY FOR YEARS AND IS NOT ON ANY MEDICATIONS. ANXIETY. SX HX - CHOLECYSTECTOMY - Past Surgical History Past Surgical History: Yes Neuro Surgical History: No Pertinent History Cardiac: No Pertinent History Respiratory: No Pertinent History Gastrointestinal: Cholecystectomy Genitourinary: No Pertinent History Musculoskeletal: No Pertinent History Female Surgical History: No Pertinent History Other Surgical History: thyroid removed with "radioactive iodine pill" - Social History Smoking Status: Former smoker Exposure to second hand smoke: Yes Drug Use: none Patient Lives Alone: Yes Significant Family History: no pertinent family hx - Female History Hx Now: No - Nursing Vital Signs Nursing Vital Signs: Initial Vital Signs Pulse Rate 80 06/21/20 11:50 Blood Pressure 133/97 06/21/20 11:50 O2 Sat by Pulse Oximetry 98 06/21/20 11:50 Pain Scale Pain Intensity 6 - Physical Exam General Appearance: no apparent distress, anxiety Eye Exam: PERRL/EOMI, eyes nml inspection Ears, Nose, Throat Exam: normal ENT inspection, TMs normal, pharynx normal, moist mucous membranes Neck Exam: normal inspection, non-tender, supple, full range of motion, No meningismus, No mass, No Brudzinski, No Kernig's, No carotid bruit Respiratory Exam: normal breath sounds, lungs clear, airway intact, No chest tenderness, No respiratory distress, No diminished breath sounds Cardiovascular Exam: regular rate/rhythm, normal heart sounds, normal peripheral pulses, No murmur Gastrointestinal/Abdomen Exam: soft, normal bowel sounds, No tenderness Back Exam: normal inspection, normal range of motion, No CVA tenderness Extremity Exam: normal inspection, normal range of motion, pelvis stable Neurologic Exam: alert, oriented x 3, cooperative, rn international II-XII nml as tested (Very anxiou) Skin Exam: normal color Lymphatic Exam: No adenopathy SpO2 Interpretation: normal SpO2: 98 O2 Delivery: Room Air - Course Nursing assessment & vital signs reviewed: Yes EKG Interpreted by Me: RATE (NSR/R73/Normal QT-QTc/Flat T waves/No acute ST changes) Ordered Tests: Active Orders 24 hr Category Date Time Status EKG-ER Only STAT Care 06/21/20 12:15 Completed CHEST 2 VIEWS (PA AND LAT) Stat Exams 06/21/20 12:29 Taken CBC W DIFF Stat Lab 06/21/20 12:03 Completed CMP Stat Lab 06/21/20 12:03 Completed NT PRO BNP Stat Lab 06/21/20 12:03 Completed PROTIME WITH INR Stat Lab 06/21/20 12:03 Completed PTT Stat Lab 06/21/20 12:03 Completed TROPONIN Q3H Lab 06/21/20 12:15 Completed Lab/Rad Data: Laboratory Result Diagrams 06/21/20 12:03 06/21/20 12:03 Laboratory Results 06/21/20 06/21/20 06/21/20 Range/Units 12:15 12:03 12:03 WBC (4.0-10.5) K/mm3 RBC (4.1-5.4) M/mm3 Hgb (12.0-16.0) gm/dl Hct (35-47) % MCV (78-100) fl MCH (26-32) pg MCHC (32-36) g/dl RDW (11.5-14.0) % Plt Count (150-450) K/mm3 MPV (7.5-11.0) fl Gran % (36.0-66.0) % Eos # (Auto) (0-0.5) Absolute Lymphs (auto) (1.0-4.6) Absolute Monos (auto) (0.0-1.3) Lymphocytes % (24.0-44.0) % Monocytes % (0.0-12.0) % Eosinophils % (0.00-5.0) % Basophils % (0.0-0.4) % Absolute Granulocytes (1.4-6.9) Basophils # (0-0.4) PT 13.0 H (9.95-12.35) SECONDS INR 1.15 (0.8-3.0) APTT 26.0 (25.3-37.0) SECONDS Sodium 136 L (137-145) mmol/L Potassium 3.7 (3.5-5.1) mmol/L Chloride 105 (98-107) mmol/L Carbon Dioxide 21 L (22-30) mmol/L Anion Gap 13.3 (5-15) MEQ/L BUN 10 (7-17) mg/dL Creatinine 0.77 (0.52-1.04) mg/dL Estimated GFR > 60.0 ML/MIN Glucose 103 (74-106) mg/dL Calcium 8.9 (8.4-10.2) mg/dL Total Bilirubin 0.20 (0.2-1.3) mg/dL AST 21 (14-36) U/L ALT 9 (0-35) U/L Alkaline Phosphatase 67 (38-126) U/L Troponin I < 0.012 (0.000-0.034) ng/mL NT-Pro-B Natriuret Pep 67.6 (0-450) pg/mL Serum Total Protein 7.2 (6.3-8.2) g/dL Albumin 3.8 (3.5-5.0) g/dL 06/21/20 Range/Units 12:03 WBC 7.9 (4.0-10.5) K/mm3 RBC 4.22 (4.1-5.4) M/mm3 Hgb 12.1 (12.0-16.0) gm/dl Hct 38.4 (35-47) % MCV 91.0 (78-100) fl MCH 28.7 (26-32) pg MCHC 31.5 L (32-36) g/dl RDW 13.7 (11.5-14.0) % Plt Count 333 (150-450) K/mm3 MPV 9.4 (7.5-11.0) fl Gran % 56.9 (36.0-66.0) % Eos # (Auto) 0.16 (0-0.5) Absolute Lymphs (auto) 2.31 (1.0-4.6) Absolute Monos (auto) 0.89 (0.0-1.3) Lymphocytes % 29.4 (24.0-44.0) % Monocytes % 11.3 (0.0-12.0) % Eosinophils % 2.0 (0.00-5.0) % Basophils % 0.4 (0.0-0.4) % Absolute Granulocytes 4.48 (1.4-6.9) Basophils # 0.03 (0-0.4) PT (9.95-12.35) SECONDS INR (0.8-3.0) APTT (25.3-37.0) SECONDS Sodium (137-145) mmol/L Potassium (3.5-5.1) mmol/L Chloride (98-107) mmol/L Carbon Dioxide (22-30) mmol/L Anion Gap (5-15) MEQ/L BUN (7-17) mg/dL Creatinine (0.52-1.04) mg/dL Estimated GFR ML/MIN Glucose (74-106) mg/dL Calcium (8.4-10.2) mg/dL Total Bilirubin (0.2-1.3) mg/dL AST (14-36) U/L ALT (0-35) U/L Alkaline Phosphatase (38-126) U/L Troponin I (0.000-0.034) ng/mL NT-Pro-B Natriuret Pep (0-450) pg/mL Serum Total Protein (6.3-8.2) g/dL Albumin (3.5-5.0) g/dL - Progress Counseled pt/family regarding: lab results, need for follow-up, rad results - Departure Departure Disposition: Home Clinical Impression: Cough Condition: Stable Critical Care Time: No Referrals: MARIELA AGUIRRE [Primary Care Provider] - Instructions: Cough, Adult (DC) Additional Instructions: Follow up with your family MD in 1-2 days Get your Tessalon perles prescription filled Return to ER for worsening cough/shortness of breath/Temperature greater than 100.5
[2020-06-21 12:38] LABS: Absolute Neutrophil Ct (ANC) 4.48 (1.4-6.9); BASOPHIL % 0.4 % (0.0-0.4); Basophil (Absolute #) 0.03 (0-0.4); Eosinophil (Absolute #) 0.16 (0-0.5); Hematocrit 38.4 % (35-47); Hemoglobin 12.1 gm/dl (12.0-16.0); Lymphocyte (Absolute #) 2.31 (1.0-4.6); Lymphocytes % 29.4 % (24.0-44.0); Mean Corpuscular Hemoglobin 28.7 pg (26-32); Mean Corpuscular Hgb Concent. 31.5 g/dl (32-36); Mean Platelet Volume 9.4 fl (7.5-11.0); Monocyte (Absolute #) 0.89 (0.0-1.3); Monocytes % 11.3 % (0.0-12.0); Neutrophil % 56.9 % (36.0-66.0); Platelet Count 333 K/mm3 (150-450); Red Blood Count 4.22 M/mm3 (4.1-5.4); Red Cell Distribution Width 13.7 % (11.5-14.0); White Blood Count 7.9 K/mm3 (4.0-10.5)
[2020-06-21 12:45] LABS: INR 1.15 (0.8-3.0)
[2020-06-21 13:02] LABS: ALBUMIN 3.8 g/dL (3.5-5.0); ALKALINE PHOSPHATASE 67 U/L (38-126); ANION GAP 13.3 MEQ/L (5-15); BLOOD UREA NITROGEN 10 mg/dL (7-17); CHLORIDE 105 mmol/L (98-107); Calcium 8.9 mg/dL (8.4-10.2); Carbon Dioxide 21 mmol/L (22-30); Creatinine 1 0.77 mg/dL (0.52-1.04); EST GLOMERULAR FILTRATION RATE > 60.0 ML/MIN; Glucose 103 mg/dL (74-106); NT PRO BNP 67.6 pg/mL (0-450); Potassium 3.7 mmol/L (3.5-5.1); SGOT/AST 21 U/L (14-36); SGPT/ALT 9 U/L (0-35); SODIUM 136 mmol/L (137-145); Total Protein 7.2 g/dL (6.3-8.2)
[2020-06-21 13:07] VITALS: BP 103/97; PULSE 72
--- NOTE | 2020-06-21 19:04 | XRAY ---
Indication: Cough. Comparison: April 18, 2020. PA/lateral chest again demonstrates normal heart, lungs, and bony thorax.
== END 2020-06-21 13:47 | disposition home or self-care (01) ==
LOC: ED 11:49
DX: R05 Cough (principal)
CPT/HCPCS: 36415; 71046; 80053; 83880; 84484; 85025; 85610; 85730; 93005; 99284

== ENCOUNTER 2020-06-22 10:40 | Observation (INO) | payer OTHER ==
--- NOTE | 2020-06-22 11:37 | ERPHSYRPT ---
- History of Present Illness Time Seen by Provider: 06/22/20 11:20 Source: patient Exam Limitations: no limitations Patient Subjective Stated Complaint: Cough Triage Nursing Assessment: ..... Physician History: Patient is a 49-year-old female presents to our ED with complaints of a cough x 3-4 days. Patient was in our ED yesterday. Patient's presentation included cough nasal congestion nasal drainage and mild shortness of breath. Patient had a chest x-ray that was within normal limits. Patient was to follow-up with her primary care doctor today but states that she was not seen due to the cough. There is no interval change since patient's last ED visit yesterday. No chest pain. No nausea or vomiting. No diaphoresis. No rash. Abdominal pain. Patient appears frustrated that she cannot see her primary care doctor today. Patient otherwise voices no other complaints or concerns. Timing/Duration: day(s) Severity: moderate (3 days.) Modifying Factors: Improves With: nothing Associated Symptoms: shortness of breath, cough, No nausea, No vomiting, No abdominal pain, No heartburn, No diaphoresis, No chills, No chest pain, No fever, No headaches, No malaise, No syncope Allergies/Adverse Reactions: blue dye Allergy (Verified 06/22/20 11:08) Home Medications: Metoprolol Succinate [Toprol Xl] 75 mg PO DAILY 02/28/17 [History] PARoxetine HCL [Paroxetine HCl] 30 mg PO DAILY 10/25/18 [History] Oxybutynin Chloride Xl 5 mg [Ditropan XL 5 MG] 10 mg PO DAILY 04/18/20 [History] Norethindrone-Ethin. Estradiol [Pirmella 1-35 28 Tablet] 1 tab PO DAILY 06/20/20 [History] Levothyroxine Sodium 25 Mcg [Synthroid 25 Mcg] 175 mcg PO DAILY 06/22/20 [History] Hx Tetanus, Diphtheria Vaccination/Date Given: No Hx Influenza Vaccination/Date Given: No Hx Pneumococcal Vaccination/Date Given: No Immunizations Up to Date: Yes Travel Risk - International Travel Have you traveled outside of the country in past 3 weeks: No - Coronavirus Screening Are you exhibiting any of the following symptoms?: Yes Symptoms: Cough: New Onset Close contact with a COVID-19 positive Pt in past 14-21 Days: No - Vaccine Status Have you recieved a Covid-19 vaccination: No - Review of Systems Constitutional: No Symptoms, No Fever, No Chills Eyes: No Symptoms Ears, Nose, & Throat: No Symptoms Respiratory: No Symptoms, No Cough, No Dyspnea Cardiac: No Symptoms, No Chest Pain, No Edema, No Syncope Abdominal/Gastrointestinal: No Symptoms, No Abdominal Pain, No Nausea, No Vomiting, No Diarrhea Genitourinary Symptoms: No Symptoms, No Dysuria Musculoskeletal: No Symptoms, No Back Pain, No Neck Pain Skin: No Symptoms, No Rash Neurological: No Symptoms, No Dizziness, No Focal Weakness, No Sensory Changes Psychological: No Symptoms Endocrine: No Symptoms Hematologic/Lymphatic: No Symptoms Immunological/Allergic: No Symptoms All Other Systems: Reviewed and Negative - Past Medical History Pertinent Past Medical History: Yes Neurological History: Seizures, Other ENT History: No Pertinent History Cardiac History: Hypertension Respiratory History: No Pertinent History Endocrine Medical History: Diabetes Type II, Hypothyroidism Musculoskeletal History: Osteoarthritis GI Medical History: No Pertinent History History: No Pertinent History Psycho-Social History: Anxiety, Depression Female Reproductive Disorders: No Pertinent History Other Medical History: HX OF SEIZURES A CHILD BUT NOT ANY FOR YEARS AND IS NOT ON ANY MEDICATIONS. ANXIETY. SX HX - CHOLECYSTECTOMY - Past Surgical History Past Surgical History: Yes Neuro Surgical History: No Pertinent History Cardiac: No Pertinent History Respiratory: No Pertinent History Gastrointestinal: Cholecystectomy Genitourinary: No Pertinent History Musculoskeletal: No Pertinent History Female Surgical History: No Pertinent History Other Surgical History: thyroid removed with "radioactive iodine pill" - Social History Smoking Status: Former smoker Exposure to second hand smoke: Yes Drug Use: none Patient Lives Alone: Yes Significant Family History: no pertinent family hx - Female History Hx Now: No - Nursing Vital Signs Nursing Vital Signs: Initial Vital Signs Temperature 98.8 F 06/22/20 11:14 Pulse Rate 92 H 06/22/20 11:14 Respiratory Rate 18 06/22/20 11:14 Blood Pressure 149/81 06/22/20 11:14 O2 Sat by Pulse Oximetry 97 06/22/20 11:14 Pain Scale Pain Intensity 4 - Physical Exam General Appearance: no apparent distress, alert Eye Exam: PERRL/EOMI, eyes nml inspection Ears, Nose, Throat Exam: normal ENT inspection, TMs normal, pharynx normal, moist mucous membranes Neck Exam: normal inspection, non-tender, supple, full range of motion Respiratory Exam: normal breath sounds, lungs clear, airway intact, No respiratory distress Cardiovascular Exam: regular rate/rhythm, normal heart sounds, normal peripheral pulses Gastrointestinal/Abdomen Exam: soft, normal bowel sounds, No tenderness, No mass Back Exam: normal inspection, normal range of motion, No CVA tenderness, No vertebral tenderness Extremity Exam: normal inspection, normal range of motion, pelvis stable Neurologic Exam: alert, oriented x 3, cooperative, normal mood/affect, nml cerebellar function, nml station & gait, sensation nml, No motor deficits Skin Exam: normal color, warm, dry, No rash Lymphatic Exam: No adenopathy SpO2 Interpretation: normal SpO2: 97 O2 Delivery: Room Air - Course Nursing assessment & vital signs reviewed: Yes EKG Interpreted by Me: RATE (61), Sinus Rhythm, NORMAL AXIS, NORMAL INTERVALS - CT Exams Chest CT Interpretation: Tele-radiologist Report (Eluding right lung pulmonary emboli greatest in lower lobe. No distal infarct. Incidental fatty liver.) Ordered Tests: Medication Summary Discontinued Medications Generic Name Dose Route Start Last Admin Trade Name Freq PRN Reason Stop Dose Admin Apixaban 10 mg 06/23/20 11:00 06/23/20 11:31 Eliquis 2.5 Mg Tablet PO 06/23/20 11:01 10 mg NOW ONE Administration Enoxaparin Sodium 100 mg 06/22/20 14:17 06/22/20 14:33 Enoxaparin Sodium SQ 06/22/20 14:18 100 mg ONCE STA Administration Enoxaparin Sodium Confirm 06/22/20 14:32 Enoxaparin Sodium Administered 06/22/20 14:33 Dose 120 mg SQ .STK-MED ONE Morphine Sulfate 2 mg 06/22/20 17:37 Morphine Sulfate 2 Mg Inj IV 06/27/20 17:36 Q4H PRN PRN PAIN Ondansetron HCl 4 mg 06/22/20 17:38 Zofran 4 Mg/2 Ml Vial IV 07/22/20 17:37 Q4H PRN PRN NAUSEA Lab/Rad Data: Laboratory Result Diagrams 06/22/20 11:37 06/22/20 11:37 Laboratory Results 06/22/20 06/22/20 06/22/20 Range/Units 14:59 14:12 11:37 WBC (4.0-10.5) K/mm3 RBC (4.1-5.4) M/mm3 Hgb (12.0-16.0) gm/dl Hct (35-47) % MCV (78-100) fl MCH (26-32) pg MCHC (32-36) g/dl RDW (11.5-14.0) % Plt Count (150-450) K/mm3 MPV (7.5-11.0) fl Gran % (36.0-66.0) % Eos # (Auto) (0-0.5) Absolute Lymphs (auto) (1.0-4.6) Absolute Monos (auto) (0.0-1.3) Lymphocytes % (24.0-44.0) % Monocytes % (0.0-12.0) % Eosinophils % (0.00-5.0) % Basophils % (0.0-0.4) % Absolute Granulocytes (1.4-6.9) Basophils # (0-0.4) D-Dimer (215-500) ng/mL Sodium (137-145) mmol/L Potassium (3.5-5.1) mmol/L Chloride (98-107) mmol/L Carbon Dioxide (22-30) mmol/L Anion Gap (5-15) MEQ/L BUN (7-17) mg/dL Creatinine (0.52-1.04) mg/dL Estimated GFR ML/MIN Glucose (74-106) mg/dL Calcium (8.4-10.2) mg/dL Magnesium (1.6-2.3) mg/dL Total Bilirubin (0.2-1.3) mg/dL AST (14-36) U/L ALT (0-35) U/L Alkaline Phosphatase (38-126) U/L Troponin I < 0.012 < 0.012 (0.000-0.034) ng/mL Serum Total Protein (6.3-8.2) g/dL Albumin (3.5-5.0) g/dL Influenza Type A Ag NEGATIVE (NEGATIVE) Influenza Type B Ag NEGATIVE (NEGATIVE) RSV (PCR) NEGATIVE (Negative) SARS-CoV-2 (PCR) NEGATIVE (NEGATIVE) 06/22/20 06/22/2021 Range/Units 11:37 11:37 11:37 WBC 10.2 (4.0-10.5) K/mm3 RBC 4.12 (4.1-5.4) M/mm3 Hgb 12.0 (12.0-16.0) gm/dl Hct 37.4 (35-47) % MCV 90.8 (78-100) fl MCH 29.1 (26-32) pg MCHC 32.1 (32-36) g/dl RDW 13.5 (11.5-14.0) % Plt Count 354 (150-450) K/mm3 MPV 9.5 (7.5-11.0) fl Gran % 65.9 (36.0-66.0) % Eos # (Auto) 0.20 (0-0.5) Absolute Lymphs (auto) 2.45 (1.0-4.6) Absolute Monos (auto) 0.81 (0.0-1.3) Lymphocytes % 24.0 (24.0-44.0) % Monocytes % 7.9 (0.0-12.0) % Eosinophils % 2.0 (0.00-5.0) % Basophils % 0.2 (0.0-0.4) % Absolute Granulocytes 6.74 (1.4-6.9) Basophils # 0.02 (0-0.4) D-Dimer 1252 H* (215-500) ng/mL Sodium 134 L (137-145) mmol/L Potassium 3.8 (3.5-5.1) mmol/L Chloride 101 (98-107) mmol/L Carbon Dioxide 26 (22-30) mmol/L Anion Gap 11.4 (5-15) MEQ/L BUN 9 (7-17) mg/dL Creatinine 0.86 (0.52-1.04) mg/dL Estimated GFR > 60.0 ML/MIN Glucose 99 (74-106) mg/dL Calcium 8.8 (8.4-10.2) mg/dL Magnesium 1.9 (1.6-2.3) mg/dL Total Bilirubin 0.20 (0.2-1.3) mg/dL AST 21 (14-36) U/L ALT 10 (0-35) U/L Alkaline Phosphatase 64 (38-126) U/L Troponin I (0.000-0.034) ng/mL Serum Total Protein 7.2 (6.3-8.2) g/dL Albumin 3.9 (3.5-5.0) g/dL Influenza Type A Ag (NEGATIVE) Influenza Type B Ag (NEGATIVE) RSV (PCR) (Negative) SARS-CoV-2 (PCR) (NEGATIVE) - Progress Progress: improved Progress Note: CT reveals multiple nonoccluding pulmonary emboli greater in the right lower lobe. Anticoagulation administered. Discussed with Dr. Roberts who accepts admission to observation. Plan of care discussed with patient. She agrees to admission [facility] for further evaluation and treatment. Patient voices no other complaints or concerns at this time. 06/25/20 07:[address] Menjivar Counseled pt/family regarding: lab results, diagnosis, rad results - Departure Departure Disposition: Observation Clinical Impression: Fatty liver, Pulmonary embolism Condition: Stable Critical Care Time: No
[2020-06-22 11:42] LABS: Absolute Neutrophil Ct (ANC) 6.74 (1.4-6.9); BASOPHIL % 0.2 % (0.0-0.4); Basophil (Absolute #) 0.02 (0-0.4); Hematocrit 37.4 % (35-47); Lymphocyte (Absolute #) 2.45 (1.0-4.6); Mean Cell Volume 90.8 fl (78-100); Mean Corpuscular Hemoglobin 29.1 pg (26-32); Mean Corpuscular Hgb Concent. 32.1 g/dl (32-36); Mean Platelet Volume 9.5 fl (7.5-11.0); Monocyte (Absolute #) 0.81 (0.0-1.3); Monocytes % 7.9 % (0.0-12.0); Neutrophil % 65.9 % (36.0-66.0); Platelet Count 354 K/mm3 (150-450); Red Blood Count 4.12 M/mm3 (4.1-5.4); Red Cell Distribution Width 13.5 % (11.5-14.0); White Blood Count 10.2 K/mm3 (4.0-10.5)
[2020-06-22 11:58] LABS: ALBUMIN 3.9 g/dL (3.5-5.0); ALKALINE PHOSPHATASE 64 U/L (38-126); ANION GAP 11.4 MEQ/L (5-15); BLOOD UREA NITROGEN 9 mg/dL (7-17); CHLORIDE 101 mmol/L (98-107); Calcium 8.8 mg/dL (8.4-10.2); Carbon Dioxide 26 mmol/L (22-30); Creatinine 1 0.86 mg/dL (0.52-1.04); EST GLOMERULAR FILTRATION RATE > 60.0 ML/MIN; Glucose 99 mg/dL (74-106); MAGNESIUM 1.9 mg/dL (1.6-2.3); Potassium 3.8 mmol/L (3.5-5.1); SGOT/AST 21 U/L (14-36); SGPT/ALT 10 U/L (0-35); SODIUM 134 mmol/L (137-145); Total Protein 7.2 g/dL (6.3-8.2)
--- NOTE | 2020-06-22 12:49 | XRAY ---
Indication: Painful cough. Elevated d-dimer. Multiple contiguous images obtained through the chest using 100 cc Isovue 370 contrast and PE protocol. Comparison: None There is satisfactory opacification of the pulmonary arteries including lobar and segmental branches. Small nonoccluding pulmonary emboli seen in the distal right lower lobe pulmonary artery extending into all segmental branches. Additional tiny nonoccluding emboli seen in the segmental branches of the right upper and right middle lobe. Heart is not enlarged. Aorta is normal in course and caliber. No pathologic mediastinal/hilar lymphadenopathy. Lungs demonstrate minimal bilateral dependent atelectasis. No suspicious pulmonary mass, infiltrate, or effusion. Bony thorax intact. Limited upper abdomen demonstrate fatty liver and cholecystectomy clips. Impression: 1. Nonoccluding right lung pulmonary emboli, greatest in lower lobe. No distal infarct. 2. Incidental fatty liver.
[2020-06-22] MEDS ORDERED: ENOXAPARIN SODIUM SQ STA (14:17)
[2020-06-22] MEDS ORDERED: ENOXAPARIN SODIUM SQ ONE (14:32)
[2020-06-22 16:27] LABS: INFLUENZA A NEGATIVE (NEGATIVE); INFLUENZA B NEGATIVE (NEGATIVE); RESPIRATORY SYNCTIAL VIRUS NEGATIVE (Negative)
[2020-06-22] MEDS ORDERED: MORPHINE SULFATE 2 MG INJ IV PRN (17:37)
[2020-06-22] MEDS ORDERED: Zofran 4 MG/2 ML VIAL IV PRN (17:38)
[2020-06-23 06:04] LABS: Absolute Neutrophil Ct (ANC) 5.54 (1.4-6.9); BASOPHIL % 0.2 % (0.0-0.4); Basophil (Absolute #) 0.02 (0-0.4); Eosinophil % 1.8 % (0.00-5.0); Eosinophil (Absolute #) 0.17 (0-0.5); Hematocrit 38.3 % (35-47); Hemoglobin 11.9 gm/dl (12.0-16.0); Lymphocyte (Absolute #) 2.75 (1.0-4.6); Lymphocytes % 29.7 % (24.0-44.0); Mean Cell Volume 91.4 fl (78-100); Mean Corpuscular Hemoglobin 28.4 pg (26-32); Mean Corpuscular Hgb Concent. 31.1 g/dl (32-36); Mean Platelet Volume 9.8 fl (7.5-11.0); Monocyte (Absolute #) 0.78 (0.0-1.3); Monocytes % 8.4 % (0.0-12.0); Neutrophil % 59.9 % (36.0-66.0); Platelet Count 352 K/mm3 (150-450); Red Blood Count 4.19 M/mm3 (4.1-5.4); Red Cell Distribution Width 13.6 % (11.5-14.0); White Blood Count 9.3 K/mm3 (4.0-10.5)
[2020-06-23 06:33] LABS: ALBUMIN 3.8 g/dL (3.5-5.0); ALKALINE PHOSPHATASE 69 U/L (38-126); BLOOD UREA NITROGEN 8 mg/dL (7-17); CHLORIDE 101 mmol/L (98-107); Calcium 8.4 mg/dL (8.4-10.2); Carbon Dioxide 26 mmol/L (22-30); Creatinine 1 0.77 mg/dL (0.52-1.04); EST GLOMERULAR FILTRATION RATE > 60.0 ML/MIN; Glucose 87 mg/dL (74-106); Potassium 3.6 mmol/L (3.5-5.1); SGOT/AST 20 U/L (14-36); SGPT/ALT 9 U/L (0-35); SODIUM 135 mmol/L (137-145); Total Protein 7.1 g/dL (6.3-8.2)
[2020-06-23 08:00] VITALS: BP 134/70; PULSE 78
[2020-06-23] MEDS ORDERED: ELIQUIS 2.5 MG TABLET PO ONE (11:00)
--- NOTE | 2020-06-23 11:04 | PCM.HP ---
History of Present Illness - Chief Complaint Chief Complaint: PULMONARY EMBOLISM History of Present Illness: is a 49 year old female with a cough that is nonproductive x 3-4 days, has some intermittent shortness of breath, no chest pain, no swelling in her feet or legs. no sputum production, tolerating po intake. no history of VTE in the past, no recent travel or prolonged immobilization. she has maintained her room air sats all night with no complaints, her cough is mild. - Review of Systems Constitutional: No Fever, No Chills Respiratory: Cough, Short Of Breath Cardiac: No Chest Pain, No Edema, No Syncope Abdominal/Gastrointestinal: No Abdominal Pain, No Nausea, No Vomiting, No Diarrhea All Other Systems: Reviewed and Negative Medications & Allergies Home Medications: Home Medication List Metoprolol Succinate [Toprol Xl] 75 mg PO DAILY 02/28/17 [History Confirmed 06/22/20] PARoxetine HCL [Paroxetine HCl] 30 mg PO DAILY 10/25/18 [History Confirmed 06/22/20] Oxybutynin Chloride Xl 5 mg [Ditropan XL 5 MG] 10 mg PO DAILY 04/18/20 [History Confirmed 06/22/20] Benzonatate [Tessalon Perle] 200 mg PO TID #12 capsule 06/20/20 [Rx Confirmed 06/22/20] Norethindrone-Ethin. Estradiol [Pirmella 1-35 28 Tablet] 1 tab PO DAILY 06/20/20 [History Confirmed 06/22/20] Levothyroxine Sodium 25 Mcg [Synthroid 25 Mcg] 175 mcg PO DAILY 06/22/20 [History Confirmed 06/22/20] Allergies/Adverse Reactions: Allergies Allergy/AdvReac Type Severity Reaction Status Date / Time blue dye Allergy Verified 06/22/20 11:08 - Past Medical History Past Medical History: Yes Neurological History: Seizures, Other ENT History: No Pertinent History Cardiac History: Hypertension Respiratory History: No Pertinent History Endocrine Medical History: Diabetes Type II, Hypothyroidism Musculoskelatal History: Osteoarthritis GI Medical History: No Pertinent History History: No Pertinent History Pyscho-Social History: Anxiety, Depression Reproductive Disorders: No Pertinent History Comment: HX OF SEIZURES A CHILD BUT NOT ANY FOR YEARS AND IS NOT ON ANY MEDICATIONS. ANXIETY. SX HX - CHOLECYSTECTOMY - Female History Hx Last Menstrual Period: 06/08/2020 Are you now?: No - Past Surgical History Past Surgical History: Yes Neuro Surgical History: No Pertinent History Cardiac History: No Pertinent History Respiratory Surgery: No Pertinent History GI Surgical History: Cholecystectomy Genitourinary Surgical Hx: No Pertinent History Musculskeletal Surgical Hx: No Pertinent History Female Surgical History: No Pertinent History Other Surgical History: thyroid removed with "radioactive iodine pill" - Social History Smoking Status: Former smoker Exposure to second hand smoke: Yes Alcohol: Rarely Drug Use: none Significant Family History: no pertinent family hx - Physical Exam Vital Signs: Vital Signs - 24 hr Temp Pulse Resp BP Pulse Ox 06/23/20 08:00 22 06/23/20 07:59 98.0 F 78 22 134/70 98 06/23/20 04:00 97.4 F 69 20 133/77 99 06/23/20 00:00 97.6 F 68 20 120/83 95 06/22/20 21:34 94 L 06/22/20 21:14 94 L 06/22/20 20:00 98.0 F 69 20 104/63 96 06/22/20 17:36 96 06/22/20 17:03 98.4 F 67 20 127/80 96 06/22/20 15:28 98.3 F 60 20 134/93 98 06/22/20 14:16 97 06/22/20 14:02 98.4 F 66 20 117/72 98 06/22/20 12:48 98.8 F 74 22 138/80 06/22/20 11:14 98.8 F 92 H 18 149/81 97 General Appearance: no apparent distress, obese Neurologic Exam: alert, oriented x 3, cooperative Respiratory Exam: normal breath sounds, lungs clear, No respiratory distress Cardiovascular Exam: regular rate/rhythm, normal heart sounds, normal peripheral pulses Gastrointestinal/Abdomen Exam: soft, normal bowel sounds, No tenderness, No mass Extremity Exam: normal inspection, normal range of motion, pelvis stable Skin Exam: normal color, warm, dry, No rash Results - Labs Lab/Micro Results: Lab Results-Last 24 Hours 06/22/20 06/22/20 06/22/20 Range/Units 11:37 11:37 11:37 WBC 10.2 (4.0-10.5) K/mm3 RBC 4.12 (4.1-5.4) M/mm3 Hgb 12.0 (12.0-16.0) gm/dl Hct 37.4 (35-47) % MCV 90.8 (78-100) fl MCH 29.1 (26-32) pg MCHC 32.1 (32-36) g/dl RDW 13.5 (11.5-14.0) % Plt Count 354 (150-450) K/mm3 MPV 9.5 (7.5-11.0) fl Gran % 65.9 (36.0-66.0) % Eos # (Auto) 0.20 (0-0.5) Absolute Lymphs (auto) 2.45 (1.0-4.6) Absolute Monos (auto) 0.81 (0.0-1.3) Lymphocytes % 24.0 (24.0-44.0) % Monocytes % 7.9 (0.0-12.0) % Eosinophils % 2.0 (0.00-5.0) % Basophils % 0.2 (0.0-0.4) % Absolute Granulocytes 6.74 (1.4-6.9) Basophils # 0.02 (0-0.4) D-Dimer 1252 H* (215-500) ng/mL Sodium 134 L (137-145) mmol/L Potassium 3.8 (3.5-5.1) mmol/L Chloride 101 (98-107) mmol/L Carbon Dioxide 26 (22-30) mmol/L Anion Gap 11.4 (5-15) MEQ/L BUN 9 (7-17) mg/dL Creatinine 0.86 (0.52-1.04) mg/dL Estimated GFR > 60.0 ML/MIN Glucose 99 (74-106) mg/dL Calcium 8.8 (8.4-10.2) mg/dL Magnesium 1.9 (1.6-2.3) mg/dL Total Bilirubin 0.20 (0.2-1.3) mg/dL AST 21 (14-36) U/L ALT 10 (0-35) U/L Alkaline Phosphatase 64 (38-126) U/L Troponin I (0.000-0.034) ng/mL Serum Total Protein 7.2 (6.3-8.2) g/dL Albumin 3.9 (3.5-5.0) g/dL Influenza Type A Ag (NEGATIVE) Influenza Type B Ag (NEGATIVE) RSV (PCR) (Negative) SARS-CoV-2 (PCR) (NEGATIVE) 06/22/20 06/22/20 06/22/20 Range/Units 11:37 14:12 14:59 WBC (4.0-10.5) K/mm3 RBC (4.1-5.4) M/mm3 Hgb (12.0-16.0) gm/dl Hct (35-47) % MCV (78-100) fl MCH (26-32) pg MCHC (32-36) g/dl RDW (11.5-14.0) % Plt Count (150-450) K/mm3 MPV (7.5-11.0) fl Gran % (36.0-66.0) % Eos # (Auto) (0-0.5) Absolute Lymphs (auto) (1.0-4.6) Absolute Monos (auto) (0.0-1.3) Lymphocytes % (24.0-44.0) % Monocytes % (0.0-12.0) % Eosinophils % (0.00-5.0) % Basophils % (0.0-0.4) % Absolute Granulocytes (1.4-6.9) Basophils # (0-0.4) D-Dimer (215-500) ng/mL Sodium (137-145) mmol/L Potassium (3.5-5.1) mmol/L Chloride (98-107) mmol/L Carbon Dioxide (22-30) mmol/L Anion Gap (5-15) MEQ/L BUN (7-17) mg/dL Creatinine (0.52-1.04) mg/dL Estimated GFR ML/MIN Glucose (74-106) mg/dL Calcium (8.4-10.2) mg/dL Magnesium (1.6-2.3) mg/dL Total Bilirubin (0.2-1.3) mg/dL AST (14-36) U/L ALT (0-35) U/L Alkaline Phosphatase (38-126) U/L Troponin I < 0.012 < 0.012 (0.000-0.034) ng/mL Serum Total Protein (6.3-8.2) g/dL Albumin (3.5-5.0) g/dL Influenza Type A Ag NEGATIVE (NEGATIVE) Influenza Type B Ag NEGATIVE (NEGATIVE) RSV (PCR) NEGATIVE (Negative) SARS-CoV-2 (PCR) NEGATIVE (NEGATIVE) 06/22/20 06/22/20 06/22/20 Range/Units 17:15 20:20 23:10 WBC (4.0-10.5) K/mm3 RBC (4.1-5.4) M/mm3 Hgb (12.0-16.0) gm/dl Hct (35-47) % MCV (78-100) fl MCH (26-32) pg MCHC (32-36) g/dl RDW (11.5-14.0) % Plt Count (150-450) K/mm3 MPV (7.5-11.0) fl Gran % (36.0-66.0) % Eos # (Auto) (0-0.5) Absolute Lymphs (auto) (1.0-4.6) Absolute Monos (auto) (0.0-1.3) Lymphocytes % (24.0-44.0) % Monocytes % (0.0-12.0) % Eosinophils % (0.00-5.0) % Basophils % (0.0-0.4) % Absolute Granulocytes (1.4-6.9) Basophils # (0-0.4) D-Dimer (215-500) ng/mL Sodium (137-145) mmol/L Potassium (3.5-5.1) mmol/L Chloride (98-107) mmol/L Carbon Dioxide (22-30) mmol/L Anion Gap (5-15) MEQ/L BUN (7-17) mg/dL Creatinine (0.52-1.04) mg/dL Estimated GFR ML/MIN Glucose (74-106) mg/dL Calcium (8.4-10.2) mg/dL Magnesium (1.6-2.3) mg/dL Total Bilirubin (0.2-1.3) mg/dL AST (14-36) U/L ALT (0-35) U/L Alkaline Phosphatase (38-126) U/L Troponin I < 0.012 < 0.012 < 0.012 (0.000-0.034) ng/mL Serum Total Protein (6.3-8.2) g/dL Albumin (3.5-5.0) g/dL Influenza Type A Ag (NEGATIVE) Influenza Type B Ag (NEGATIVE) RSV (PCR) (Negative) SARS-CoV-2 (PCR) (NEGATIVE) 06/23/20 06/23/20 Range/Units 05:20 05:20 WBC 9.3 (4.0-10.5) K/mm3 RBC 4.19 (4.1-5.4) M/mm3 Hgb 11.9 L (12.0-16.0) gm/dl Hct 38.3 (35-47) % MCV 91.4 (78-100) fl MCH 28.4 (26-32) pg MCHC 31.1 L (32-36) g/dl RDW 13.6 (11.5-14.0) % Plt Count 352 (150-450) K/mm3 MPV 9.8 (7.5-11.0) fl Gran % 59.9 (36.0-66.0) % Eos # (Auto) 0.17 (0-0.5) Absolute Lymphs (auto) 2.75 (1.0-4.6) Absolute Monos (auto) 0.78 (0.0-1.3) Lymphocytes % 29.7 (24.0-44.0) % Monocytes % 8.4 (0.0-12.0) % Eosinophils % 1.8 (0.00-5.0) % Basophils % 0.2 (0.0-0.4) % Absolute Granulocytes 5.54 (1.4-6.9) Basophils # 0.02 (0-0.4) D-Dimer (215-500) ng/mL Sodium 135 L (137-145) mmol/L Potassium 3.6 (3.5-5.1) mmol/L Chloride 101 (98-107) mmol/L Carbon Dioxide 26 (22-30) mmol/L Anion Gap 12.0 (5-15) MEQ/L BUN 8 (7-17) mg/dL Creatinine 0.77 (0.52-1.04) mg/dL Estimated GFR > 60.0 ML/MIN Glucose 87 (74-106) mg/dL Calcium 8.4 (8.4-10.2) mg/dL Magnesium (1.6-2.3) mg/dL Total Bilirubin 0.20 (0.2-1.3) mg/dL AST 20 (14-36) U/L ALT 9 (0-35) U/L Alkaline Phosphatase 69 (38-126) U/L Troponin I (0.000-0.034) ng/mL Serum Total Protein 7.1 (6.3-8.2) g/dL Albumin 3.8 (3.5-5.0) g/dL Influenza Type A Ag (NEGATIVE) Influenza Type B Ag (NEGATIVE) RSV (PCR) (Negative) SARS-CoV-2 (PCR) (NEGATIVE) - Radiology Impressions Radiology Exams & Impressions: Radiology Procedures Category Date Time Status CHEST WITH CONTRAST [CT] Stat Exams 06/22/20 11:57 Completed Assessment/Plan (1) Pulmonary embolism Current Visit: Yes Status: Acute Assessment & Plan: eliquis 10mg bid x 7 days then reduce to 5mg bid. small and nonoccluding and vitals have been quite stable. sars cov-2 is negative but symptoms are still suspicious. plan to treat with dexamethasone and zpak emperically for bronchitis Code(s): I26.99 - OTHER PULMONARY EMBOLISM WITHOUT ACUTE COR PULMONALE (2) Acute bronchitis Current Visit: Yes Status: Acute Code(s): J20.9 - ACUTE BRONCHITIS, UNSPECIFIED
--- NOTE | 2020-06-23 11:09 | PCM.DCORD ---
- Discharge Disposition: Home, Self-Care Condition: Stable Prescriptions: New dexAMETHasone [Dexamethasone] 6 mg PO DAILY #7 tablet Apixaban [Eliquis] 5 mg PO BID #44 tablet Azithromycin 250 mg [Zithromax 250 MG TABLET] 250 mg PO ZPACK #6 tablet Continue Metoprolol Succinate [Toprol Xl] 75 mg PO DAILY PARoxetine HCL [Paroxetine HCl] 30 mg PO DAILY Oxybutynin Chloride Xl 5 mg [Ditropan XL 5 MG] 10 mg PO DAILY Norethindrone-Ethin. Estradiol [Pirmella 1-35 28 Tablet] 1 tab PO DAILY Benzonatate [Tessalon Perle] 200 mg PO TID #12 capsule Levothyroxine Sodium 25 Mcg [Synthroid 25 Mcg] 175 mcg PO DAILY Additional Instructions: take zpak and dexamethosone as prescribed, start eliquis 2 tabs morning and night (first dose tonight on 06/23 you were given a dose in the hospital this morning) take 2 tabs morning and night for 1 week then reduce to 1 tab po morning and night return for severe shortness of breath, fever, chest pain, shortness of breath or struggling to breathe or any new problems or concerns. Follow up with: MARIELA AGUIRRE [Primary Care Provider] - 1 Week
[2020-06-25 07:17] VITALS: O2SAT 97
== END 2020-06-23 11:40 | disposition home or self-care (01) ==
LOC: ED 10:40 → MED SURG 16:45
PROVIDERS: ADMIT Family Medicine; ATTEND Family Medicine
DX: I26.99 Other pulmonary embolism without acute cor pulmonale (principal); J20.9 Acute bronchitis, unspecified; Z20.828 Contact with and (suspected) exposure to other viral communicable diseases; E11.9 Type 2 diabetes mellitus without complications; E03.9 Hypothyroidism, unspecified; Z79.899 Other long term (current) drug therapy; I10 Essential (primary) hypertension
CPT/HCPCS: 0241U; 36415; 71260; 80053; 83735; 84484; 85025; 85379; 93005; 93268; 94762; 96372; 99285; G0378; J1650; A9270-GY

== ENCOUNTER 2020-12-01 22:00 | Emergency (ER) | payer OTHER ==
[2020-12-01 22:45] LABS: Absolute Neutrophil Ct (ANC) 5.45 (1.4-6.9); BASOPHIL % 0.3 % (0.0-0.4); Basophil (Absolute #) 0.03 (0-0.4); Eosinophil % 2.1 % (0.00-5.0); Eosinophil (Absolute #) 0.19 (0-0.5); Hematocrit 33.6 % (35-47); Hemoglobin 10.2 gm/dl (12.0-16.0); Lymphocyte (Absolute #) 2.48 (1.0-4.6); Lymphocytes % 27.2 % (24.0-44.0); Mean Cell Volume 87.7 fl (78-100); Mean Corpuscular Hemoglobin 26.6 pg (26-32); Mean Corpuscular Hgb Concent. 30.4 g/dl (32-36); Mean Platelet Volume 9.4 fl (7.5-11.0); Monocyte (Absolute #) 0.97 (0.0-1.3); Monocytes % 10.6 % (0.0-12.0); Neutrophil % 59.8 % (36.0-66.0); Platelet Count 410 K/mm3 (150-450); Red Blood Count 3.83 M/mm3 (4.1-5.4); White Blood Count 9.1 K/mm3 (4.0-10.5)
[2020-12-01 22:56] LABS: ALBUMIN 3.6 g/dL (3.5-5.0); ALKALINE PHOSPHATASE 78 U/L (38-126); ANION GAP 11.4 MEQ/L (5-15); BLOOD UREA NITROGEN 13 mg/dL (7-17); CHLORIDE 103 mmol/L (98-107); Carbon Dioxide 26 mmol/L (22-30); Creatinine 1 0.82 mg/dL (0.52-1.04); EST GLOMERULAR FILTRATION RATE > 60.0 ML/MIN; Glucose 93 mg/dL (74-106); SGOT/AST 21 U/L (14-36); SGPT/ALT 11 U/L (0-35); SODIUM 137 mmol/L (137-145); Total Protein 6.7 g/dL (6.3-8.2)
[2020-12-01 23:27] VITALS: O2SAT 97
--- NOTE | 2020-12-01 23:27 | ERPHSYRPT ---
- History of Present Illness Time Seen by Provider: 12/01/20 22:10 Historian: patient Exam Limitations: no limitations Patient Subjective Stated Complaint: C/O "aching" chest pain that started approx 30 minutes prior to arrival to ER. Denies SOB. States she was sitting down playing on her phone when the pain started. 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 Recently told that she has "calcifications to her right jugular." Triage Nursing Assessment: Patient ambulated to room without difficulties. No SOB noted. Lungs clear with left post lower lobe noted to be diminished. Apical heart sounds regular. Patient is alert and oriented and answering questions appropriately. Patient is very talkative. Physician History: Patient is a 50-year-old female presents to our ED with complaints of chest pain radiating to the right side of her neck. Symptoms started today while she was resting playing on her cell phone. Patient states she has significant carotid artery calcifications. Patient believes her neck pain is stemming from this carotid artery calcification. Patient has been under significant stress due to car problems. No associated nausea or vomiting. No diarrhea no rash no fever. No trauma. Symptoms are mild to moderate in intensity. No specific worsening improving factors. Patient denies history of the same. She voices no other complaints or concerns at this time. Timing/Duration: today Activities at Onset: none Quality: aching Location: substernal Chest Pain Radiation: jaw, neck Severity of Pain-Max: moderate Severity of Pain-Current: mild Modifying Factors: Improves With: nothing Associated Symptoms: denies symptoms, No palpitations, No shortness of breath, N o fever, No swelling/lump in chest, No syncope, No headache, No dizziness Prior Chest Pain/Cardiac Workup: no prior chest pain Nitro Today/Relief: no nitro taken today Aspirin Treatment Today: no aspirin today Allergies/Adverse Reactions: blue dye Allergy (Verified 12/01/20 22:01) levothyroxine sodium [From Synthroid] Allergy (Verified 12/01/20 22:02) Home Medications: Metoprolol Succinate [Toprol Xl] 75 mg PO DAILY 02/28/17 [History] PARoxetine HCL [Paroxetine HCl] 30 mg PO DAILY 10/25/18 [History] Oxybutynin Chloride Xl 5 mg [Ditropan XL 5 MG] 10 mg PO DAILY 04/18/20 [History] Norethindrone-Ethin. Estradiol [Pirmella 1-35 28 Tablet] 1 tab PO DAILY 06/20/20 [History] Levothyroxine Sodium 25 Mcg [Synthroid 25 Mcg] 175 mcg PO DAILY 06/22/20 [History] Cyanocobalamin (Vitamin B-12) [Vitamin B12] 5,000 mcg PO DAILY 10/29/20 [History] Diphenhydramine HCl [Allergy] 25 mg PO Q4HPRN PRN 10/29/20 [History] Fluticasone/Umeclidin/Vilanter [Trelegy Ellipta 100-62.5-25] 1 each IH DAILY 10/29/20 [History] Multivitamin 1 each PO DAILY 10/29/20 [History] Pravastatin Sodium 20 mg PO DAILY 10/29/20 [History] Hx Tetanus, Diphtheria Vaccination/Date Given: No Hx Influenza Vaccination/Date Given: No Hx Pneumococcal Vaccination/Date Given: No Travel Risk - International Travel Have you traveled outside of the country in past 3 weeks: No - Coronavirus Screening Are you exhibiting any of the following symptoms?: No Close contact with a COVID-19 positive Pt in past 14-21 Days: No - Vaccine Status Have you recieved a Covid-19 vaccination: No - Review of Systems Constitutional: No Symptoms, No Fever, No Chills Eyes: No Symptoms Ears, Nose, & Throat: No Symptoms Respiratory: No Symptoms, No Cough, No Dyspnea Cardiac: No Symptoms, No Chest Pain, No Edema, No Syncope Abdominal/Gastrointestinal: No Symptoms, No Abdominal Pain, No Nausea, No V omiting, No Diarrhea Genitourinary Symptoms: No Symptoms, No Dysuria Musculoskeletal: No Symptoms, No Back Pain, No Neck Pain Skin: No Symptoms, No Rash Neurological: No Symptoms, No Dizziness, No Focal Weakness, No Sensory Changes Psychological: No Symptoms Endocrine: No Symptoms Hematologic/Lymphatic: No Symptoms Immunological/Allergic: No Symptoms All Other Systems: Reviewed and Negative - Past Medical History Pertinent Past Medical History: Yes Neurological History: Seizures, Other ENT History: No Pertinent History Cardiac History: Coronary Artery Disease, High Cholesterol, Hypertension Respiratory History: No Pertinent History Endocrine Medical History: Hypothyroidism Musculoskeletal History: Osteoarthritis GI Medical History: No Pertinent History History: No Pertinent History Psycho-Social History: Anxiety, Depression Female Reproductive Disorders: No Pertinent History Other Medical History: HX OF SEIZURES A CHILD BUT NOT ANY FOR YEARS AND IS NOT ON ANY MEDICATIONS. ANXIETY. SX HX - CHOLECYSTECTOMY - Past Surgical History Past Surgical History: Yes Neuro Surgical History: No Pertinent History Cardiac: No Pertinent History Respiratory: No Pertinent History Gastrointestinal: Cholecystectomy Genitourinary: No Pertinent History Musculoskeletal: No Pertinent History Female Surgical History: No Pertinent History Other Surgical History: thyroid removed with "radioactive iodine pill" - Social History Smoking Status: Former smoker Exposure to second hand smoke: Yes Drug Use: none Patient Lives Alone: Yes Significant Family History: no pertinent family hx - Female History Hx Last Menstrual Period: NOW - Nursing Vital Signs Nursing Vital Signs: Initial Vital Signs Temperature 99.1 F 12/01/20 22:03 Pulse Rate 64 12/01/20 22:03 Respiratory Rate 24 12/01/20 22:03 Blood Pressure 135/81 12/01/20 22:03 O2 Sat by Pulse Oximetry 97 12/01/20 22:03 Pain Scale Pain Intensity 0 - Physical Exam General Appearance: no apparent distress, alert Eye Exam: PERRL/EOMI, eyes nml inspection Ears, Nose, Throat Exam: normal ENT inspection, moist mucous membranes Neck Exam: normal inspection, non-tender, supple, full range of motion Respiratory Exam: normal breath sounds, lungs clear, airway intact, No respiratory distress Cardiovascular Exam: regular rate/rhythm, normal heart sounds Gastrointestinal/Abdomen Exam: soft, normal bowel sounds, No tenderness, No distention, No mass Back Exam: normal inspection, normal range of motion, No CVA tenderness, No vertebral tenderness Extremity Exam: normal inspection, normal range of motion Neurologic Exam: alert, oriented x 3, cooperative, normal mood/affect, sensation nml, No motor deficits Skin Exam: normal color, warm, dry SpO2 Interpretation: normal SpO2: 97 O2 Delivery: Room Air - Course Nursing assessment & vital signs reviewed: Yes EKG Interpreted by Me: RATE (65), Sinus Rhythm, NORMAL AXIS, NORMAL INTERVALS (Nonacute chest. Clear lung argueta. Normal cardiac silhouette. Intact bony thorax.) - Radiology Exams Chest X-ray Interpretation: Interpreted by me (Nonacute chest. Clear lung argueta. Normal cardiac silhouette. Intact bony thorax.) Ordered Tests: Active Orders 24 hr Category Date Time Status AMA [Release AMA] OM.NOW Care 12/02/20 00:21 Active Applications Support Lead STAT Care 12/01/20 22:12 Active EKG-ER Only STAT Care 12/01/20 22:11 Active IV Insertion STAT Care 12/01/20 22:11 Active Pulse Oximetry (ED) STAT Care 12/01/20 22:11 Active CHEST 1 VIEW (PORTABLE) Stat Exams 12/01/20 22:49 Taken CBC W DIFF Stat Lab 12/01/20 22:42 Completed CMP Stat Lab 12/01/20 22:42 Completed TROPONIN Q3H Lab 12/01/20 22:42 Completed TROPONIN Q3H Lab 12/02/20 01:15 Ordered TROPONIN Q3H Lab 12/02/20 04:15 Ordered TROPONIN Q3H Lab 12/02/20 07:15 Ordered TROPONIN Q3H Lab 12/02/20 10:15 Ordered Lab/Rad Data: Laboratory Result Diagrams 12/01/20 22:42 12/01/20 22:42 Laboratory Results 12/01/20 12/01/20 12/01/20 Range/Units 22:42 22:42 22:42 WBC 9.1 (4.0-10.5) K/mm3 RBC 3.83 L (4.1-5.4) M/mm3 Hgb 10.2 L (12.0-16.0) gm/dl Hct 33.6 L (35-47) % MCV 87.7 (78-100) fl MCH 26.6 (26-32) pg MCHC 30.4 L (32-36) g/dl RDW 14.0 (11.5-14.0) % Plt Count 410 (150-450) K/mm3 MPV 9.4 (7.5-11.0) fl Gran % 59.8 (36.0-66.0) % Eos # (Auto) 0.19 (0-0.5) Absolute Lymphs (auto) 2.48 (1.0-4.6) Absolute Monos (auto) 0.97 (0.0-1.3) Lymphocytes % 27.2 (24.0-44.0) % Monocytes % 10.6 (0.0-12.0) % Eosinophils % 2.1 (0.00-5.0) % Basophils % 0.3 (0.0-0.4) % Absolute Granulocytes 5.45 (1.4-6.9) Basophils # 0.03 (0-0.4) Sodium 137 (137-145) mmol/L Potassium 4.0 (3.5-5.1) mmol/L Chloride 103 (98-107) mmol/L Carbon Dioxide 26 (22-30) mmol/L Anion Gap 11.4 (5-15) MEQ/L BUN 13 (7-17) mg/dL Creatinine 0.82 (0.52-1.04) mg/dL Estimated GFR > 60.0 ML/MIN Glucose 93 (74-106) mg/dL Calcium 9.0 (8.4-10.2) mg/dL Total Bilirubin 0.20 (0.2-1.3) mg/dL AST 21 (14-36) U/L ALT 11 (0-35) U/L Alkaline Phosphatase 78 (38-126) U/L Troponin I < 0.012 (0.000-0.034) ng/mL Serum Total Protein 6.7 (6.3-8.2) g/dL Albumin 3.6 (3.5-5.0) g/dL - Progress Progress: improved Air Movement: good Progress Note: Patient reassessed. Patient's pain-free. Initial troponin negative. Patient states he just started a new job and she must leave now because she works first thing in the morning. Patient missed her first day of work due to car problems she does not want to miss a second day of work. Patient does not want to stay for her second troponin. Risk and benefits of leaving prior to completion of work-up were discussed. In spite of her risk patient will leave AGAINST MEDICAL ADVICE. Patient is of sound mind. Patient is appropriate to make informed and independent medical decisions. Patient understands that leaving AGAINST MEDICAL ADVICE can result in delayed diagnosis, increased risk of morbidity, mortality, short and long-term disability including . In spite of these risks, patient has decided to leave AGAINST MEDICAL ADVICE. Patient understands that he/she may return to our ED at any point if he or she reconsiders. Patient agrees to follow-up with his or her primary care doctor within 48 hours for reevaluation. Patient voices no other complaints or concerns at this time. We will release patient AGAINST MEDICAL ADVICE per their request. Portions of this note were created with voice recognition technology. There may be grammatical, spelling, punctuation or sound alike errors 12/02/20 00:24 Blood Culture(s) Obtained: No Antibiotics given: No Counseled pt/family regarding: lab results, diagnosis, need for follow-up, rad results - Departure Departure Disposition: AMA Clinical Impression: Chest pain, ACS (acute coronary syndrome) Condition: Stable Critical Care Time: No Referrals: MARIELA AGUIRRE [Primary Care Provider] - Instructions: Angina (DC), Chest Pain (DC) Additional Instructions: Discharge/Care Plan ABHIJIT HERNANDEZ was seen on 12/02/20 in the Emergency Room. The patient was counseled regarding Diagnosis,Lab results, Imaging studies, need for follow up and when to return to the Emergency Room. Prescriptions given: Discharge Note I have spoken with the patient and/or caregivers. I have explained the patient's condition, diagnosis and treatment plan based on the information available to me at this time. I have answered the patient's and/or caregiver's questions and addressed any concerns. The patient and/or caregivers have as good understanding of the patient's diagnosis, condition and treatment plan as can be expected at this point. The vital signs have been stable. The patient's condition is stable and appropriate for discharge from the emergency department. The patient will pursue further outpatient evaluation with the primary care physician or other designated or consulting physician as outlined in the discharge instructions. The patient and/or caregivers are agreeable to this plan of care and follow-up instructions have been explained in detail. The patient and/or caregivers have received these instruction. The patient/and or caregivers are aware that any significant change in condition or worsening of symptoms should prompt an immediate return to this or the closest emergency department or call 911.
[2020-12-02 00:28] VITALS: BP 112/68; PULSE 65
--- NOTE | 2020-12-02 08:54 | XRAY ---
Indication: Right chest pain. Comparison: June 21, 2020. Portable apical lordotic chest is now underinflated and remains clear. Heart not enlarged. Bony thorax intact. No new/acute abnormalities.
== END 2020-12-02 00:38 | disposition home or self-care (01) ==
LOC: ED 22:00
DX: R07.9 Chest pain, unspecified (principal); I24.9 Acute ischemic heart disease, unspecified
CPT/HCPCS: 36000; 36415; 71045; 80053; 84484; 85025; 93005; 93041; 94760; 99284

== ENCOUNTER 2021-06-24 17:05 | Emergency (ER) | payer OTHER ==
[2021-06-24 19:59] LABS: Appearance CLEAR (CLEAR); Bilirubin NEGATIVE (NEGATIVE); Glucose NEGATIVE (NEGATIVE); Ketones NEGATIVE (NEGATIVE); Nitrite NEGATIVE (NEGATIVE); Protein,Urine Dip NEGATIVE (Negative); RBC NEGATIVE Ery/ul (0-5); Specific Gravity 1.015 (1.005-1.025); Urine Cultured Indicated? NO; Urobilinogen 0.2 mg/dL (0-1)
[2021-06-24 20:18] LABS: Dipstick done @ ? MAIN LAB
[2021-06-24] MEDS ORDERED: TORAdol 30 mg Injection IM ONE (21:34)
--- NOTE | 2021-06-24 21:35 | ERPHSYRPT ---
- History of Present Illness Time Seen by Provider: 06/24/21 17:50 Source: patient Exam Limitations: no limitations Patient Subjective Stated Complaint: back pain Triage Nursing Assessment: pt to ED c/o back pain and fall today while helping her son. chronic back pain, bilateral hips, and L knee, hx arthritis. rates 09/29 currently. ambulatory with no assistance with steady gate. Physician History: Patient is a 50-year-old female presents to our ED for evaluation of lumbar spine pain. Patient is experiencing acute on chronic low back pain. Patient's son had a seizure today. In the process of assisting patient fell and hurt her back. Patient also has some soreness to bilateral hips and left knee. Patient is ambulatory with a normal gait pattern. No change in bowel bladder function. No recent back procedures. No fever. No saddle anesthesia. Patient requesting a CAT scan. No other injuries reported. No BHT or LOC. No neck pain. Cervical spine cleared clinically. Patient voices no other complaints or concerns at this time. Timing/Duration: today Severity: moderate Modifying Factors: Improves With: movement Associated Symptoms: denies symptoms, No nausea, No shortness of breath, No diaphoresis, No chest pain, No headaches, No loss of appetite, No malaise, No syncope, No weakness Allergies/Adverse Reactions: blue dye Allergy (Verified 06/24/21 17:45) levothyroxine sodium [From Synthroid] Allergy (Verified 06/24/21 17:45) Home Medications: Metoprolol Succinate [Toprol Xl] 75 mg PO DAILY 02/28/17 [History] PARoxetine HCL [Paroxetine HCl] 30 mg PO DAILY 10/25/18 [History] Oxybutynin Chloride Xl 5 mg [Ditropan XL 5 MG] 10 mg PO DAILY 04/18/20 [History] Norethindrone-Ethin. Estradiol [Pirmella 1-35 28 Tablet] 1 tab PO DAILY 06/20/20 [History] Levothyroxine Sodium 25 Mcg [Synthroid 25 Mcg] 175 mcg PO DAILY 06/22/20 [History] Cyanocobalamin (Vitamin B-12) [Vitamin B12] 5,000 mcg PO DAILY 10/29/20 [History] Diphenhydramine HCl [Allergy] 25 mg PO Q4HPRN PRN 10/29/20 [History] Fluticasone/Umeclidin/Vilanter [Trelegy Ellipta 100-62.5-25] 1 each IH DAILY 10/29/20 [History] Multivitamin 1 each PO DAILY 10/29/20 [History] Pravastatin Sodium 20 mg PO DAILY 10/29/20 [History] Hx Tetanus, Diphtheria Vaccination/Date Given: No Hx Influenza Vaccination/Date Given: No Hx Pneumococcal Vaccination/Date Given: No Immunizations Up to Date: No Travel Risk - International Travel Have you traveled outside of the country in past 3 weeks: No - Coronavirus Screening Are you exhibiting any of the following symptoms?: No Close contact with a COVID-19 positive Pt in past 14-21 Days: No - Vaccine Status Have you recieved a Covid-19 vaccination: No - Review of Systems Constitutional: No Symptoms, No Fever, No Chills Eyes: No Symptoms Ears, Nose, & Throat: No Symptoms Respiratory: No Symptoms, No Cough, No Dyspnea Cardiac: No Symptoms, No Chest Pain, No Edema, No Syncope Abdominal/Gastrointestinal: No Symptoms, No Abdominal Pain, No Nausea, No Vomiting, No Diarrhea Genitourinary Symptoms: No Symptoms, No Dysuria Musculoskeletal: No Symptoms, No Back Pain, No Neck Pain Skin: No Symptoms, No Rash Neurological: No Symptoms, No Dizziness, No Focal Weakness, No Sensory Changes Psychological: No Symptoms Endocrine: No Symptoms Hematologic/Lymphatic: No Symptoms Immunological/Allergic: No Symptoms All Other Systems: Reviewed and Negative - Past Medical History Pertinent Past Medical History: Yes Neurological History: Seizures, Other ENT History: No Pertinent History Cardiac History: Coronary Artery Disease, High Cholesterol, Hypertension Respiratory History: No Pertinent History Endocrine Medical History: Hypothyroidism Musculoskeletal History: Osteoarthritis GI Medical History: No Pertinent History History: No Pertinent History Psycho-Social History: Anxiety, Depression Female Reproductive Disorders: No Pertinent History Other Medical History: HX OF SEIZURES A CHILD BUT NOT ANY FOR YEARS AND IS NOT ON ANY MEDICATIONS. ANXIETY. SX HX - CHOLECYSTECTOMY - Past Surgical History Past Surgical History: Yes Neuro Surgical History: No Pertinent History Cardiac: No Pertinent History Respiratory: No Pertinent History Gastrointestinal: Cholecystectomy Genitourinary: No Pertinent History Musculoskeletal: No Pertinent History Female Surgical History: No Pertinent History Other Surgical History: thyroid removed with "radioactive iodine pill" - Social History Smoking Status: Former smoker Exposure to second hand smoke: Yes Drug Use: none Patient Lives Alone: Yes Significant Family History: no pertinent family hx - Nursing Vital Signs Nursing Vital Signs: Initial Vital Signs Temperature 96.8 F 06/24/21 17:48 Pulse Rate 98 H 06/24/21 17:48 Respiratory Rate 20 06/24/21 17:48 Blood Pressure 155/89 06/24/21 17:48 O2 Sat by Pulse Oximetry 94 L 06/24/21 17:48 Pain Scale Pain Intensity [Posterior Back 8 ] Pain Intensity 4 - Physical Exam General Appearance: no apparent distress, alert Eye Exam: PERRL/EOMI, eyes nml inspection Ears, Nose, Throat Exam: normal ENT inspection, TMs normal, pharynx normal, moist mucous membranes Neck Exam: normal inspection, non-tender, supple, full range of motion Respiratory Exam: normal breath sounds, lungs clear, airway intact, No chest tenderness, No respiratory distress Cardiovascular Exam: regular rate/rhythm, normal heart sounds, normal peripheral pulses Gastrointestinal/Abdomen Exam: soft, normal bowel sounds, No tenderness, No mass Pelvic Exam: not done Back Exam: normal inspection, normal range of motion, No CVA tenderness, No vertebral tenderness Extremity Exam: normal inspection, normal range of motion, pelvis stable Neurologic Exam: alert, oriented x 3, cooperative, normal mood/affect, nml cerebellar function, nml station & gait, sensation nml, No motor deficits Skin Exam: normal color, warm, dry, No rash Lymphatic Exam: No adenopathy SpO2 Interpretation: normal SpO2: 98 O2 Delivery: Room Air - Course Nursing assessment & vital signs reviewed: Yes - Radiology Exams L-Spine X-ray Interpretation: Teleradiologist Report (No comps. Negative for fracture/subluxation. Mild L3-S1 degenerative disc disease. Mild global curvature scoliosis. Inferior L1 Schmorl's node) Ordered Tests: Active Orders 24 hr Category Date Time Status LUMBAR SPINE W/O [CT] Stat Exams 06/24/21 20:01 Taken UA W/RFX CULTURE Stat Lab 06/24/21 19:38 Completed Lab/Rad Data: Laboratory Results 06/24/21 Range/Units 19:38 Urinalys Dipstick Clnc MAIN LAB Urine Color YELLOW (YELLOW) Urine Appearance CLEAR (CLEAR) Urine pH 7.0 (5-6) Ur Specific [place] 1.015 (1.005-1.025) POC Urine Protein Conf NEGATIVE (Negative) Urine Ketones NEGATIVE (NEGATIVE) Urine Nitrite NEGATIVE (NEGATIVE) Urine Bilirubin NEGATIVE (NEGATIVE) Urine Urobilinogen 0.2 (0-1) mg/dL Urine Leukocytes NEGATIVE (NEGATIVE) Urine WBC (Auto) NONE (0-5) /HPF Urine RBC (Auto) NONE (0-2) /HPF U Epithel Cells (Auto) NONE (FEW) /HPF Urine RBC NEGATIVE (0-5) Ras/ul Ur Culture Indicated? NO Urine Glucose NEGATIVE (NEGATIVE) mg/dL - Progress Progress: improved Progress Note: Patient reassessed. Pain improved. Toradol administered for pain control. CT negative for acute fracture or dislocation. Patient is ambulatory. No indication for further work-up. UA negative for UTI. Will discharge home. Patient agrees to follow-up with primary care doctor within 48 hours for evaluation. Portions of this note were created with voice recognition technology. There may be grammatical, spelling, punctuation or sound alike errors 06/24/21 21:34 Counseled pt/family regarding: lab results, diagnosis, need for follow-up, rad results - Departure Departure Disposition: Home Clinical Impression: Fall, Lumbosacral strain Condition: Stable Critical Care Time: No Referrals: MARIELA AGUIRRE [Primary Care Provider] - Follow up/PCP as directed Additional Instructions: Please follow-up with your primary care doctor within 48 hours for evaluation Discharge/Care Plan ABHIJIT HERNANDEZ was seen on 06/24/21 in the Emergency Room. The patient was counseled regarding Diagnosis,Lab results, Imaging studies, need for follow up and when to return to the Emergency Room. Prescriptions given: Discharge Note I have spoken with the patient and/or caregivers. I have explained the patient's condition, diagnosis and treatment plan based on the information available to me at this time. I have answered the patient's and/or caregiver's questions and addressed any concerns. The patient and/or caregivers have as good understanding of the patient's diagnosis, condition and treatment plan as can be expected at this point. The vital signs have been stable. The patient's condition is stable and appropriate for discharge from the emergency department. The patient will pursue further outpatient evaluation with the primary care physician or other designated or consulting physician as outlined in the discharge instructions. The patient and/or caregivers are agreeable to this plan of care and follow-up instructions have been explained in detail. The patient and/or caregivers have received these instruction. The patient/and or caregivers are aware that any significant change in condition or worsening of symptoms should prompt an immediate return to this or the closest emergency department or call 911.
[2021-06-24] MEDS ORDERED: TORAdol 30 mg Injection ONE (21:41)
[2021-06-24 21:58] VITALS: BP 126/74; PULSE 76; O2SAT 99
--- NOTE | 2021-06-25 09:45 | XRAY ---
Indication: Low back pain following fall. Multiple contiguous axial images obtained through the lumbar spine. Sagittal and coronal reformatted images obtained. Comparison: None Axial images negative for acute fracture, suspicious bony lesions, or spinal canal stenosis. There is mild/moderate multilevel anterior endplate spurring. Minimal/mild L3-S1 broad-based disc bulge without obvious disc herniation. Mild L5-S1 degenerative vacuum disc phenomena. Mild right L4-L5 degenerative facet arthropathy. Sagittal and coronal reformatted images demonstrates minimal double curvature thoracolumbar scoliosis. Minimal L3-L4 and L5-S1 degenerative disc space narrowing. Small inferior L1 Schmorl node. No acute compression fracture or subluxation. Visualized noncontrasted soft tissues demonstrates nonobstructing punctate right renal calculus. Impression: 1. Chronic findings including scoliosis, multilevel degenerative changes, L1 Schmorl node, and nonobstructing right renal punctate calculus. 2. Remaining CT lumbar spine without contrast exam is negative.
== END 2021-06-24 21:58 | disposition home or self-care (01) ==
LOC: ED 17:05
DX: S39.012A Strain of muscle, fascia and tendon of lower back, initial encounter (principal); W19.XXXA Unspecified fall, initial encounter; Y93.F9 Activity, other caregiving; G89.29 Other chronic pain; M54.50 Low back pain, unspecified; M25.562 Pain in left knee; M25.551 Pain in right hip; M25.552 Pain in left hip; E78.5 Hyperlipidemia, unspecified; I10 Essential (primary) hypertension; Z79.899 Other long term (current) drug therapy
CPT/HCPCS: 72131; 81015; 96372; 99284; J1885

== ENCOUNTER 2021-07-03 21:25 | Emergency (ER) | payer OTHER ==
[2021-07-03 21:37] VITALS: O2SAT 95
[2021-07-03] MEDS ORDERED: MORPHINE SULFATE 4 MG INJ IM ONE (22:04)
[2021-07-03] MEDS ORDERED: MORPHINE SULFATE 4 MG INJ ONE (22:07)
--- NOTE | 2021-07-03 22:27 | ERPHSYRPT ---
- History of Present Illness Time Seen by Provider: 07/03/21 21:28 Source: patient Exam Limitations: no limitations Patient Subjective Stated Complaint: low back pain Triage Nursing Assessment: pt had a fall at home onto carpet onto her butt, c/o low back pain ever since. Pt saw Dr. Sommer on Monday for this, instructed pt to use tylenol and the voltaren cream. Pt states, "the pain is about the same but thought I should come be seen". Pt ambulated into ER without difficulty, talking alot. Does not appear to be in pain or distress. Physician History: 50 years old female presented in the ER with chief complaint of low back pain for last 2 weeks after she took a ground-level fall on the low back. Moderate intensity nonradiating, bilateral sacroiliac/hip area, more with ambulation and better with resting. Denies any loss of bowel or bladder control. No numbness tingling weakness of lower extremities. Timing/Duration: week(s), intermittent, worse Method of Injury: fall Quality: sharp Back Pain Location: paraspinous muscles Severity of Pain-Max: moderate Severity of Pain-Current: moderate Modifying Factors: Improves With: rest. Worsens With: movement Associated Symptoms: lower back pain, muscle spasms, No sensory/motor loss, No tingling in legs/feet Previous symptoms: no prior history Allergies/Adverse Reactions: blue dye Allergy (Verified 07/03/21 21:45) levothyroxine sodium [From Synthroid] Allergy (Verified 07/03/21 21:45) Home Medications: PARoxetine HCL [Paroxetine HCl] 40 mg PO DAILY 10/25/18 [History] Oxybutynin Chloride Xl 5 mg [Ditropan XL 5 MG] 15 mg PO DAILY 04/18/20 [History] Cyanocobalamin (Vitamin B-12) [Vitamin B12] 5,000 mcg PO DAILY 10/29/20 [History] Diphenhydramine HCl [Allergy] 25 mg PO Q4HPRN PRN 10/29/20 [History] Fluticasone/Umeclidin/Vilanter [Trelegy Ellipta 100-62.5-25] 1 each IH DAILY 10/29/20 [History] Pravastatin Sodium 20 mg PO DAILY 10/29/20 [History] Levothyroxine Sodium [Tirosint] 200 mcg PO DAILY 07/03/21 [History] Hx Tetanus, Diphtheria Vaccination/Date Given: (unknown) Hx Influenza Vaccination/Date Given: No Hx Pneumococcal Vaccination/Date Given: No Immunizations Up to Date: Yes Travel Risk - International Travel Have you traveled outside of the country in past 3 weeks: No - Coronavirus Screening Are you exhibiting any of the following symptoms?: No Close contact with a COVID-19 positive Pt in past 14-21 Days: No - Vaccine Status Have you recieved a Covid-19 vaccination: No - Review of Systems Constitutional: No Symptoms Eyes: No Symptoms Ears, Nose, & Throat: No Symptoms Respiratory: No Symptoms Cardiac: No Symptoms Abdominal/Gastrointestinal: No Symptoms Genitourinary Symptoms: No Symptoms Musculoskeletal: Back Pain Neurological: No Symptoms Psychological: Anxiety Endocrine: No Symptoms Hematologic/Lymphatic: No Symptoms Immunological/Allergic: No Symptoms - Past Medical History Pertinent Past Medical History: Yes Neurological History: Seizures, Other ENT History: No Pertinent History Cardiac History: Coronary Artery Disease, High Cholesterol, Hypertension Respiratory History: Pneumonia Endocrine Medical History: Hypothyroidism Musculoskeletal History: Osteoarthritis GI Medical History: No Pertinent History History: No Pertinent History Psycho-Social History: Anxiety, Depression Female Reproductive Disorders: No Pertinent History Other Medical History: HX OF SEIZURES A CHILD BUT NOT ANY FOR YEARS AND IS NOT ON ANY MEDICATIONS. ANXIETY. SX HX - CHOLECYSTECTOMY - Past Surgical History Past Surgical History: Yes Neuro Surgical History: No Pertinent History Cardiac: No Pertinent History Respiratory: No Pertinent History Gastrointestinal: Cholecystectomy Genitourinary: No Pertinent History Musculoskeletal: No Pertinent History Female Surgical History: No Pertinent History Other Surgical History: thyroid removed with "radioactive iodine pill" - Social History Smoking Status: Former smoker Exposure to second hand smoke: No Drug Use: none Patient Lives Alone: Yes Significant Family History: no pertinent family hx - Nursing Vital Signs Nursing Vital Signs: Initial Vital Signs Temperature 97.9 F 07/03/21 21:34 Pulse Rate 97 H 07/03/21 21:34 Respiratory Rate 20 07/03/21 21:34 Blood Pressure 132/108 07/03/21 21:34 O2 Sat by Pulse Oximetry 95 07/03/21 21:34 Pain Scale Pain Intensity [Lower Back] 10 Pain Intensity 10 - Physical Exam General Appearance: no apparent distress, alert Eye Exam: PERRL/EOMI Ears, Nose, Throat Exam: normal ENT inspection Neck Exam: normal inspection, non-tender, full range of motion Respiratory Exam: normal breath sounds, lungs clear Cardiovascular Exam: regular rate/rhythm, normal heart sounds Gastrointestinal Exam: soft, normal bowel sounds, No tenderness Back Exam: normal inspection, normal range of motion, muscle spasm (Bilateral sacroiliac area), No point tenderness Extremity Exam: normal inspection, normal range of motion Neurologic Exam: alert, oriented x 3, cooperative, sensation nml, No motor deficits Skin Exam: normal color SpO2 Interpretation: normal SpO2: 95 O2 Delivery: Room Air Ordered Tests: Medication Summary Discontinued Medications Generic Name Dose Route Start Last Admin Trade Name Freq PRN Reason Stop Dose Admin Morphine Sulfate 4 mg 07/03/21 22:04 Morphine Sulfate 4 Mg/Ml Injection IM 07/03/21 22:05 STAT ONE Morphine Sulfate Confirm 07/03/21 22:07 Morphine Sulfate 4 Mg/Ml Injection Administered 07/03/21 22:08 Dose 4 mg .ROUTE .[employer]-MED ONE - Progress Progress: improved Progress Note: 07/03/21 negative neuro exam in lower extremities. No signs of cauda equina. No midline tenderness. given symptomatic treatment for pain, on reevaluation feeling better. Discussed signs symptoms of worsening needing return to ER w hich she seems understanding. Stable for discharge. Counseled pt/family regarding: diagnosis, need for follow-up - Departure Departure Disposition: Home Clinical Impression: Low back pain Condition: Stable Critical Care Time: No Referrals: MARIELA SOMMER [Primary Care Provider] - Follow Up with PCP/3 days Instructions: Low Back Pain (DC) Additional Instructions: Date take pain medications as needed. Follow-up with primary care for reevaluation. Return to ER for worsening pain or if having numbness tingling weakness of lower extremities/loss of bowel or bladder control. Prescriptions: Tramadol HCl 50 mg [Ultram 50 mg] 50 mg PO Q6HPRN PRN 3 Days #10 tablet PRN Reason: Pain
[2021-07-03 22:39] VITALS: BP 136/76; PULSE 86
== END 2021-07-03 22:45 | disposition home or self-care (01) ==
LOC: ED 21:25
DX: M54.50 Low back pain, unspecified (principal); E78.5 Hyperlipidemia, unspecified; I10 Essential (primary) hypertension; Z79.891 Long term (current) use of opiate analgesic; Z79.899 Other long term (current) drug therapy
CPT/HCPCS: 96372; 99283; J2270

== ENCOUNTER 2021-09-10 18:33 | Emergency (ER) | payer OTHER ==
--- NOTE | 2021-09-10 19:25 | ERPHSYRPT ---
- History of Present Illness Time Seen by Provider: 09/10/21 18:45 Source: patient, EMS Exam Limitations: no limitations Patient Subjective Stated Complaint: Pt was having a fight with her exhusband and so she called 911 and so then she said she had a sore throat but she keeps talking Triage Nursing Assessment: Pt brought to the ER by EMS, vitals wnl, rates pain 5/10, skin n/w/d, pulses normal, c/o of pain in her belly when she coughs, doesn't appear to be in any distress at all Physician History: This is an obese 50-year-old white female patient brought in by ambulance service after patient states she was having argument with her ex- and was having severe anxiety followed by sore throat and cough. By the time the ambulance service arrived her home she was concerned because of the cough and the sore throat that is present. Patient states the symptoms actually began Monday prior to arrival today in the emergency department. Patient also complains of neck pain. She denies chest pain she denies shortness of breath. Patient's primary care provider is Dr. Sommer. Patient just started CPAP this week. The CPAP machine that was prescribed for her arrived at her home in June 2021 but she did not start using it until the last few days. She denies fever. She denies abdominal pain. She has had no vomiting or diarrhea symptoms. Patient has history of COPD and recurrent bronchitis. Timing/Duration: abrupt onset Severity: mild (To moderate) ENT Location: throat Prearrival Treatment: no prearrival treatment (Neck) Modifying Factors: Improves With: coughing Associated Symptoms: cough, sore throat, other (Pain) Allergies/Adverse Reactions: blue dye Allergy (Verified 09/10/21 18:44) levothyroxine sodium [From Synthroid] Allergy (Verified 09/10/21 18:44) Home Medications: PARoxetine HCL [Paroxetine HCl] 40 mg PO DAILY 10/25/18 [History] Oxybutynin Chloride Xl 5 mg [Ditropan XL 5 MG] 15 mg PO DAILY 04/18/20 [History] Cyanocobalamin (Vitamin B-12) [Vitamin B12] 5,000 mcg PO DAILY 10/29/20 [History] Fluticasone/Umeclidin/Vilanter [Trelegy Ellipta 100-62.5-25] 1 each IH DAILY 10/29/20 [History] Pravastatin Sodium 20 mg PO DAILY 10/29/20 [History] Levothyroxine Sodium [Tirosint] 188 mcg PO DAILY 07/03/21 [History] Hx Tetanus, Diphtheria Vaccination/Date Given: (unknown) Hx Influenza Vaccination/Date Given: No Hx Pneumococcal Vaccination/Date Given: No Travel Risk - International Travel Have you traveled outside of the country in past 3 weeks: No - Coronavirus Screening Are you exhibiting any of the following symptoms?: No Close contact with a COVID-19 positive Pt in past 14-21 Days: No - Vaccine Status Have you recieved a Covid-19 vaccination: No - Review of Systems Constitutional: No Symptoms Eyes: No Symptoms Ears, Nose, & Throat: Throat Pain Respiratory: Cough Cardiac: No Symptoms Abdominal/Gastrointestinal: No Symptoms Genitourinary Symptoms: No Symptoms Musculoskeletal: No Symptoms Skin: No Symptoms Neurological: No Symptoms Psychological: No Symptoms Endocrine: No Symptoms Hematologic/Lymphatic: No Symptoms Immunological/Allergic: No Symptoms All Other Systems: Reviewed and Negative - Past Medical History Pertinent Past Medical History: Yes Neurological History: Migraines ENT History: No Pertinent History Cardiac History: No Pertinent History Respiratory History: Asthma, Bronchitis, COPD, Sleep Apnea, Other Endocrine Medical History: No Pertinent History Musculoskeletal History: Osteoarthritis GI Medical History: No Pertinent History History: No Pertinent History Psycho-Social History: Anxiety, Depression Female Reproductive Disorders: No Pertinent History Other Medical History: ONE SEIZURE A CHILD, ANXIETY, DEPRESSION, NERVE STRESS. BLOOD CLOTS, HEART ABLATION. - Past Surgical History Past Surgical History: Yes Neuro Surgical History: No Pertinent History Cardiac: No Pertinent History Respiratory: No Pertinent History Gastrointestinal: Cholecystectomy Genitourinary: No Pertinent History Musculoskeletal: No Pertinent History Female Surgical History: No Pertinent History Other Surgical History: thyroid removed with "radioactive iodine pill" - Social History Smoking Status: Former smoker Exposure to second hand smoke: No Drug Use: none Patient Lives Alone: No Significant Family History: no pertinent family hx - Nursing Vital Signs Nursing Vital Signs: Initial Vital Signs Temperature 97.1 F 09/10/21 18:35 Pulse Rate 84 09/10/21 18:35 Blood Pressure 137/92 09/10/21 18:35 O2 Sat by Pulse Oximetry 99 09/10/21 18:35 Pain Scale Pain Intensity 5 - Physical Exam General Appearance: no apparent distress, alert, anxiety, obese Eye Exam: bilateral eye: normal inspection, PERRL, EOMI Ear Exam: bilateral ear: auricle normal, canal normal, TM normal Nasal Exam: normal inspection Throat Exam: normal, pharynx normal, pharynx tenderness Neck Exam: normal inspection, supple, tender lateral (Side) Cardiovascular/Respiratory Exam: chest non-tender, no respiratory distress Abdominal Exam: non-tender Neurologic Exam: alert, oriented x 3, cooperative, 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, normal mood/affect, nml cerebellar function, nml station & gait, sensation nml Skin Exam: normal color, warm, dry SpO2 Interpretation: normal SpO2: 99 O2 Delivery: Room Air - Course Nursing assessment & vital signs reviewed: Yes Ordered Tests: Active Orders 24 hr Category Date Time Status CHEST 1 VIEW (PORTABLE) Stat Exams 09/10/21 19:08 Taken NECK WO CONTRAST [CT] Stat Exams 09/10/21 19:06 Taken CBC W DIFF Stat Lab 09/10/21 19:50 Completed CMP Stat Lab 09/10/21 19:50 Completed D-DIMER QUANTITATIVE Stat Lab 09/10/21 19:50 Completed TROPONIN Q3H Lab 09/10/21 19:50 Completed TROPONIN Q3H Lab 09/10/21 22:15 Ordered TROPONIN Q3H Lab 09/11/21 01:15 Ordered TROPONIN Q3H Lab 09/11/21 04:15 Ordered TROPONIN Q3H Lab 09/11/21 07:15 Ordered Medication Summary Discontinued Medications Generic Name Dose Route Start Last Admin Trade Name Chaim PRN Reason Stop Dose Admin Hydrocodone Bitart/Acetaminophen 10 ml 09/10/21 20:28 09/10/21 20:33 Hydrocodone/Acetaminophen 5 Ml Udcup PO 09/10/21 20:29 10 ml STAT STA Administration Hydrocodone Bitart/Acetaminophen Confirm 09/10/21 20:31 Hydrocodone/Acetaminophen 5 Ml Udcup Administered 09/10/21 20:32 Dose 10 ml .ROUTE .STK-MED ONE Methylprednisolone Sodium 0 mg 09/10/21 20:28 09/10/21 20:33 Succinate 125 mg/ Sterile IM 09/10/21 20:29 125 mg Water 2 ml STAT ONE Administration Methylprednisolone Sodium Succinate Confirm 09/10/21 20:31 Methylprednis Sod Succ 125 Mg/2 Ml Vial Administered 09/10/21 20:32 Dose 125 mg .ROUTE .[place] Bop ONE Sterile Water Confirm 09/10/21 20:31 Water For Injection,Sterile 10 Ml Vial Administered 09/10/21 20:32 Dose 10 ml IJ .[place]-MED ONE Lab/Rad Data: Laboratory Result Diagrams 09/10/21 19:50 09/10/21 19:50 Laboratory Results 09/10/21 09/10/21 09/10/21 Range/Units 19:50 19:50 19:50 WBC (4.0-10.5) x10^3/uL RBC (4.1-5.4) x10^6/uL Hgb (12.0-16.0) g/dL Hct (35-47) % MCV (78-100) fL MCH (26-32) pg MCHC (32-36) g/dL RDW (11.5-14.0) % Plt Count (150-450) x10^3/uL MPV (7.5-11.0) fL Gran % (36.0-66.0) % Immature Gran % (Auto) (0.00-0.4) % Nucleat RBC Rel Count (0.00-0.1) % Eos # (Auto) (0-0.5) x10^3/uL Immature Gran # (Auto) (0.00-0.03) x10^3u/L Absolute Lymphs (auto) (1.0-4.6) x10^3/uL Absolute Monos (auto) (0.0-1.3) x10^3/uL Absolute Nucleated RBC (0.00-0.01) x10^3u/L Lymphocytes % (24.0-44.0) % Monocytes % (0.0-12.0) % Eosinophils % (0.00-5.0) % Basophils % (0.0-0.4) % Absolute Granulocytes (1.4-6.9) x10^3/uL Basophils # (0-0.4) x10^3/uL D-Dimer (0.0-0.50) mg/L Sodium (137-145) mmol/L Potassium (3.5-5.1) mmol/L Chloride (98-107) mmol/L Carbon Dioxide (22-30) mmol/L Anion Gap (5-15) MEQ/L BUN (7-17) mg/dL Creatinine (0.52-1.04) mg/dL Estimated GFR ML/MIN Glucose (74-106) mg/dL Calcium (8.4-10.2) mg/dL Total Bilirubin (0.2-1.3) mg/dL AST (14-36) U/L ALT (0-35) U/L Alkaline Phosphatase (38-126) U/L Troponin I < 0.012 (0.000-0.034) ng/mL Serum Total Protein (6.3-8.2) g/dL Albumin (3.5-5.0) g/dL Influenza Type A Ag NEGATIVE (NEGATIVE) Influenza Type B Ag NEGATIVE (NEGATIVE) RSV (PCR) NEGATIVE (Negative) SARS-CoV-2 (PCR) POSITIVE A (NEGATIVE) Group A Strep Antibody NOT DETECTED (NEGATIVE) 09/10/21 09/10/21 09/10/21 Range/Units 19:50 19:50 19:50 WBC 8.1 (4.0-10.5) x10^3/uL RBC 3.71 L (4.1-5.4) x10^6/uL Hgb 9.1 L (12.0-16.0) g/dL Hct 30.5 L (35-47) % MCV 82.2 (78-100) fL MCH 24.5 L (26-32) pg MCHC 29.8 L (32-36) g/dL RDW 15.0 H (11.5-14.0) % Plt Count 358 (150-450) x10^3/uL MPV 9.5 (7.5-11.0) fL Gran % 69.7 H (36.0-66.0) % Immature Gran % (Auto) 0.0 (0.00-0.4) % Nucleat RBC Rel Count 0.0 (0.00-0.1) % Eos # (Auto) 0.10 (0-0.5) x10^3/uL Immature Gran # (Auto) 0.00 (0.00-0.03) x10^3u/L Absolute Lymphs (auto) 1.32 (1.0-4.6) x10^3/uL Absolute Monos (auto) 0.99 (0.0-1.3) x10^3/uL Absolute Nucleated RBC 0.00 (0.00-0.01) x10^3u/L Lymphocytes % 16.4 L (24.0-44.0) % Monocytes % 12.3 H (0.0-12.0) % Eosinophils % 1.2 (0.00-5.0) % Basophils % 0.4 (0.0-0.4) % Absolute Granulocytes 5.61 (1.4-6.9) x10^3/uL Basophils # 0.03 (0-0.4) x10^3/uL D-Dimer 0.52 H (0.0-0.50) mg/L Sodium 135 L (137-145) mmol/L Potassium 4.2 (3.5-5.1) mmol/L Chloride 103 (98-107) mmol/L Carbon Dioxide 26 (22-30) mmol/L Anion Gap 11.0 (5-15) MEQ/L BUN 10 (7-17) mg/dL Creatinine 0.83 (0.52-1.04) mg/dL Estimated GFR > 60.0 ML/MIN Glucose 117 H (74-106) mg/dL Calcium 8.8 (8.4-10.2) mg/dL Total Bilirubin 0.20 (0.2-1.3) mg/dL AST 29 (14-36) U/L ALT 13 (0-35) U/L Alkaline Phosphatase 98 (38-126) U/L Troponin I (0.000-0.034) ng/mL Serum Total Protein 7.2 (6.3-8.2) g/dL Albumin 3.8 (3.5-5.0) g/dL Influenza Type A Ag (NEGATIVE) Influenza Type B Ag (NEGATIVE) RSV (PCR) (Negative) SARS-CoV-2 (PCR) (NEGATIVE) Group A Strep Antibody (NEGATIVE) - Progress Progress: improved, re-examined Progress Note: 09/10/21 20:27 X-ray shows no acute cardiopulmonary process. Counseled pt/family regarding: lab results, diagnosis, need for follow-up, rad results - Departure Departure Disposition: Home Clinical Impression: Bronchitis, COVID-19 virus infection Condition: Stable Critical Care Time: No Referrals: MARIELA SOMMER [Primary Care Provider] - Follow up/PCP as directed Additional Instructions: Drink plenty of clear liquids. Take your medication as prescribed. Follow-up with your primary care physician for further evaluation and management. Quarantine yourself for 1 week Prescriptions: Hydrocodone/Acetaminophen [Hydrocodone-Acetamn 7.5-325/15] 10 ml PO Q8H PRN PRN #120 ml MDD 30 ml PRN Reason: Cough Prednisone 10 mg [Deltasone 10 mg] 10 mg PO TID #12 tablet
[2021-09-10 20:01] LABS: Absolute Neutrophil Ct (ANC) 5.61 x10^3/uL (1.4-6.9); Basophil (Absolute #) 0.03 x10^3/uL (0-0.4); Eosinophil % 1.2 % (0.00-5.0); Hematocrit 30.5 % (35-47); Hemoglobin 9.1 g/dL (12.0-16.0); Lymphocyte (Absolute #) 1.32 x10^3/uL (1.0-4.6); Lymphocytes % 16.4 % (24.0-44.0); Mean Cell Volume 82.2 fL (78-100); Mean Corpuscular Hemoglobin 24.5 pg (26-32); Mean Corpuscular Hgb Concent. 29.8 g/dL (32-36); Mean Platelet Volume 9.5 fL (7.5-11.0); Monocyte (Absolute #) 0.99 x10^3/uL (0.0-1.3); Monocytes % 12.3 % (0.0-12.0); Neutrophil % 69.7 % (36.0-66.0); Platelet Count 358 x10^3/uL (150-450); Red Blood Count 3.71 x10^6/uL (4.1-5.4); White Blood Count 8.1 x10^3/uL (4.0-10.5)
[2021-09-10 20:13] LABS: ALBUMIN 3.8 g/dL (3.5-5.0); ALKALINE PHOSPHATASE 98 U/L (38-126); BLOOD UREA NITROGEN 10 mg/dL (7-17); CHLORIDE 103 mmol/L (98-107); Calcium 8.8 mg/dL (8.4-10.2); Carbon Dioxide 26 mmol/L (22-30); Creatinine 1 0.83 mg/dL (0.52-1.04); EST GLOMERULAR FILTRATION RATE > 60.0 ML/MIN; Glucose 117 mg/dL (74-106); Potassium 4.2 mmol/L (3.5-5.1); SGOT/AST 29 U/L (14-36); SGPT/ALT 13 U/L (0-35); SODIUM 135 mmol/L (137-145); Total Protein 7.2 g/dL (6.3-8.2)
[2021-09-10 20:19] VITALS: BP 126/77
[2021-09-10] MEDS ORDERED: solu-MEDROL 125 MG, Sterile H2O 10 ml 2 ML IM ONE ×2 (20:28)
[2021-09-10] MEDS ORDERED: HYDROCODONE-ACETAMIN 2.5-108/5 ML SOLUTION PO STA (20:28)
[2021-09-10] MEDS ORDERED: HYDROCODONE-ACETAMIN 2.5-108/5 ML SOLUTION ONE (20:31)
[2021-09-10] MEDS ORDERED: solu-MEDROL ONE (20:31)
[2021-09-10] MEDS ORDERED: Sterile H2O 10 ml IJ ONE (20:31)
[2021-09-10 20:36] LABS: INFLUENZA A NEGATIVE (NEGATIVE); INFLUENZA B NEGATIVE (NEGATIVE); RESPIRATORY SYNCTIAL VIRUS NEGATIVE (Negative)
[2021-09-10 20:48] LABS: SARS-CoV-2 Xpert Express POSITIVE (NEGATIVE)
[2021-09-10 21:00] VITALS: PULSE 92; O2SAT 96
--- NOTE | 2021-09-10 22:53 | XRAY ---
Indication: Left neck swelling 1 week. Short of breath. Multiple contiguous axial images obtained through the neck without contrast. Comparison: None Parotid glands are bilaterally symmetric. Right submandibular gland demonstrates 8 mm stone. Several tiny subcentimeter cervical and submandibular lymph nodes bilaterally. No pathologic lymphadenopathy. Thyroid gland is atrophic or surgically absent. The arteries and veins are normal in course and caliber. Supra and infraglottic airway are widely patent. Osseous structures intact with mild/moderate C5-T1 degenerative changes. Incidental bilateral exophthalmus. Base of brain unremarkable. Impression: 1. 8 mm right submandibular stone, C5-T1 degenerative changes, and bilateral exophthalmus. 2. Remaining CT neck without contrast exam is negative. Comment: Preliminary interpretation made by C. No critical discrepancy.
--- NOTE | 2021-09-10 22:53 | XRAY ---
Indication: cough and sore throat. Comparison: December 01, 2020 Portable chest better inflated and clear. Heart and mediastinal structures within normal limits. Bony thorax intact again with mild degenerative changes. Impression: Continued nonacute chest.
== END 2021-09-10 21:02 | disposition home or self-care (01) ==
LOC: ED 18:33
DX: U07.1 COVID-19 (principal); J40 Bronchitis, not specified as acute or chronic; R05.1 Acute cough; M54.2 Cervicalgia; J44.9 Chronic obstructive pulmonary disease, unspecified; Z79.899 Other long term (current) drug therapy; Z28.310 Unvaccinated for COVID-19; Z79.891 Long term (current) use of opiate analgesic; Z79.52 Long term (current) use of systemic steroids
CPT/HCPCS: 0241U; 36415; 70490; 71045; 80053; 84484; 85025; 85379; 87651; 96372; 99284; J2930; A9270-GY

== ENCOUNTER 2021-09-15 15:01 | Emergency (ER) | payer OTHER ==
[2021-09-15 15:24] VITALS: BP 129/85; PULSE 80; O2SAT 97
--- NOTE | 2021-09-15 15:32 | ERPHSYRPT ---
- History of Present Illness Source: patient, EMS Exam Limitations: other (Poor historian) Patient Subjective Stated Complaint: Patient c/o anxiety Triage Nursing Assessment: Patient bought to ED by ambulance. She is alert and oriented; anxious. Patient is very talkative, ramblingl. She keeps changing from one topic of conversation to another and will not stay on subject. She is very sporatic. Physician History: 50 yo WF who was diagnosed w CV19 on 09/10/21 and started on Paxlovid presents per EMS after running out of gas at [facility] which started a panic attack. Pt still has a mild cough and mild fever but denies dyspnea/N/V/D/chest pain/a bdominal pain/dysuria/hematuria. Pt is extremely talkative/great airway/NAD/Good sats. Timing/Duration: today Severity: mild Associated Symptoms: cough, fever, No nausea, No vomiting, No abdominal pain, No shortness of breath, No heartburn, No diaphoresis, No chills, No chest pain, No headaches, No loss of appetite, No malaise, No rash, No syncope, No seizure, No weakness Allergies/Adverse Reactions: blue dye Allergy (Verified 09/15/21 15:03) levothyroxine sodium [From Synthroid] Allergy (Verified 09/15/21 15:03) Home Medications: PARoxetine HCL [Paroxetine HCl] 40 mg PO DAILY 10/25/18 [History] Oxybutynin Chloride Xl 5 mg [Ditropan XL 5 MG] 15 mg PO DAILY 04/18/20 [History] Cyanocobalamin (Vitamin B-12) [Vitamin B12] 5,000 mcg PO DAILY 10/29/20 [History] Fluticasone/Umeclidin/Vilanter [Trelegy Ellipta 100-62.5-25] 1 each IH DAILY 10/29/20 [History] Pravastatin Sodium 20 mg PO DAILY 10/29/20 [History] Levothyroxine Sodium [Tirosint] 188 mcg PO DAILY 07/03/21 [History] Hx Tetanus, Diphtheria Vaccination/Date Given: (unknown) Hx Influenza Vaccination/Date Given: No Hx Pneumococcal Vaccination/Date Given: No Immunizations Up to Date: Yes Travel Risk - International Travel Have you traveled outside of the country in past 3 weeks: No - Coronavirus Screening Are you exhibiting any of the following symptoms?: Yes Symptoms: Fever Close contact with a COVID-19 positive Pt in past 14-21 Days: No - Vaccine Status Have you recieved a Covid-19 vaccination: No - Review of Systems Constitutional: No Symptoms, Fever, Chills Eyes: No Symptoms Ears, Nose, & Throat: No Symptoms Respiratory: No Symptoms, Cough Cardiac: No Symptoms Abdominal/Gastrointestinal: No Symptoms Genitourinary Symptoms: No Symptoms Musculoskeletal: No Symptoms Skin: No Symptoms Neurological: No Symptoms Psychological: No Symptoms Endocrine: No Symptoms Hematologic/Lymphatic: No Symptoms Immunological/Allergic: No Symptoms - Past Medical History Pertinent Past Medical History: Yes Neurological History: Migraines ENT History: No Pertinent History Cardiac History: No Pertinent History Respiratory History: Asthma, Bronchitis, COPD, Sleep Apnea, Other Endocrine Medical History: No Pertinent History Musculoskeletal History: Osteoarthritis GI Medical History: No Pertinent History History: No Pertinent History Psycho-Social History: Anxiety, Depression Female Reproductive Disorders: No Pertinent History Other Medical History: Covid in August 2021 - Past Surgical History Past Surgical History: Yes Neuro Surgical History: No Pertinent History Cardiac: No Pertinent History Respiratory: No Pertinent History Gastrointestinal: Cholecystectomy Genitourinary: No Pertinent History Musculoskeletal: No Pertinent History Female Surgical History: No Pertinent History Other Surgical History: thyroid removed with "radioactive iodine pill" - Social History Smoking Status: Former smoker Exposure to second hand smoke: No Drug Use: none Patient Lives Alone: No Significant Family History: no pertinent family hx - Nursing Vital Signs Nursing Vital Signs: Initial Vital Signs Temperature 98.5 F 09/15/21 15:03 Pulse Rate 80 09/15/21 15:03 Respiratory Rate 20 09/15/21 15:03 Blood Pressure 129/85 09/15/21 15:03 O2 Sat by Pulse Oximetry 97 09/15/21 15:03 Pain Scale Pain Intensity 0 WNL - Physical Exam General Appearance: no apparent distress, anxiety Eye Exam: PERRL/EOMI, eyes nml inspection Ears, Nose, Throat Exam: normal ENT inspection, TMs normal, pharynx normal, moist mucous membranes Neck Exam: normal inspection, non-tender, supple, full range of motion, No meningismus, No mass, No Brudzinski, No Kernig's, No carotid bruit Respiratory Exam: normal breath sounds, lungs clear, airway intact, No respiratory distress Cardiovascular Exam: regular rate/rhythm, normal heart sounds, normal peripheral pulses, capillary refill <2 sec, No murmur Gastrointestinal/Abdomen Exam: soft, normal bowel sounds, No tenderness Back Exam: normal inspection, normal range of motion, No CVA tenderness, No vertebral tenderness Extremity Exam: normal inspection, normal range of motion Neurologic Exam: alert, oriented x 3, 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, 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, normal mood/affect, nml cerebellar function, nml station & gait, sensation nml, No motor deficits, No sensory deficit Skin Exam: normal color, warm, dry, No rash Lymphatic Exam: No adenopathy SpO2 Interpretation: normal SpO2: 97 O2 Delivery: Room Air - Course Nursing assessment & vital signs reviewed: Yes - Progress Progress Note: 09/15/21 15:32 Pt stable w good airway/good sats/good vital signs Counseled pt/family regarding: diagnosis, need for follow-up - Departure Departure Disposition: Home Clinical Impression: Anxiety, COVID-19 Condition: Stable Critical Care Time: No Referrals: MARIELA AGUIRRE [Primary Care Provider] - Follow up/PCP as directed Instructions: Anxiety, Adult (DC), COVID-19 (DC) Additional Instructions: Continue your Paxlovid Quarantine for 5 more days Follow up with your family MD Return to ER for increasing shortness of breath or chest pain
== END 2021-09-15 15:35 | disposition home or self-care (01) ==
LOC: ED 15:01
DX: F41.9 Anxiety disorder, unspecified (principal); U07.1 COVID-19; R05.9 Cough, unspecified; R50.9 Fever, unspecified; J44.9 Chronic obstructive pulmonary disease, unspecified; Z28.310 Unvaccinated for COVID-19
CPT/HCPCS: 99281

== ENCOUNTER 2021-09-17 18:22 | Emergency (ER) | payer OTHER ==
--- NOTE | 2021-09-17 18:45 | ERPHSYRPT ---
- History of Present Illness Time Seen by Provider: 09/17/21 18:45 Source: patient Exam Limitations: no limitations Physician History: This is a 50-year-old obese white female patient of Dr. Sommer who was seen here on 09/10/2021 and diagnosed with bronchitis and COVID-19 infection. She returned on 09/15/2021 for COVID-related symptoms and was discharged to home. He presents today again with sore throat mild body aches and pains. 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 Patient also stated that she completely forgot that she was diagnosed with COVID-19 infection. Once we informed her of that she stated that she wants to go home. She states she is she is hungry and wants to eat. Timing/Duration: today Severity: mild Associated Symptoms: denies symptoms, No shortness of breath, No chest pain, No fever Allergies/Adverse Reactions: blue dye Allergy (Verified 09/17/21 18:46) levothyroxine sodium [From Synthroid] Allergy (Verified 09/17/21 18:46) Home Medications: PARoxetine HCL [Paroxetine HCl] 40 mg PO DAILY 10/25/18 [History] Oxybutynin Chloride Xl 5 mg [Ditropan XL 5 MG] 15 mg PO DAILY 04/18/20 [History] Cyanocobalamin (Vitamin B-12) [Vitamin B12] 5,000 mcg PO DAILY 10/29/20 [History] Fluticasone/Umeclidin/Vilanter [Trelegy Ellipta 100-62.5-25] 1 each IH DAILY 10/29/20 [History] Pravastatin Sodium 20 mg PO DAILY 10/29/20 [History] Levothyroxine Sodium [Tirosint] 188 mcg PO DAILY 07/03/21 [History] Hx Tetanus, Diphtheria Vaccination/Date Given: (unknown) Hx Influenza Vaccination/Date Given: No Hx Pneumococcal Vaccination/Date Given: No Travel Risk - International Travel Have you traveled outside of the country in past 3 weeks: No - Coronavirus Screening Are you exhibiting any of the following symptoms?: Yes Symptoms: Headaches/Body Aches/Fatigue Close contact with a COVID-19 positive Pt in past 14-21 Days: No - Vaccine Status Have you recieved a Covid-19 vaccination: No - Review of Systems Constitutional: No Symptoms Eyes: No Symptoms Ears, Nose, & Throat: Throat Pain Respiratory: No Symptoms (Mild) Cardiac: No Symptoms Abdominal/Gastrointestinal: No Symptoms Genitourinary Symptoms: No Symptoms Musculoskeletal: Arthralgias (Mild), Myalgias (Mild) Neurological: No Symptoms Psychological: No Symptoms Endocrine: No Symptoms Hematologic/Lymphatic: No Symptoms Immunological/Allergic: No Symptoms All Other Systems: Reviewed and Negative - Past Medical History Pertinent Past Medical History: Yes Neurological History: Migraines ENT History: No Pertinent History Cardiac History: No Pertinent History Respiratory History: Asthma, Bronchitis, COPD, Sleep Apnea, Other Endocrine Medical History: No Pertinent History Musculoskeletal History: Osteoarthritis GI Medical History: No Pertinent History History: No Pertinent History Psycho-Social History: Anxiety, Depression Female Reproductive Disorders: No Pertinent History Other Medical History: Covid in August 2021 - Past Surgical History Past Surgical History: Yes Neuro Surgical History: No Pertinent History Cardiac: No Pertinent History Respiratory: No Pertinent History Gastrointestinal: Cholecystectomy Genitourinary: No Pertinent History Musculoskeletal: No Pertinent History Female Surgical History: No Pertinent History Other Surgical History: thyroid removed with "radioactive iodine pill" - Social History Smoking Status: Former smoker Exposure to second hand smoke: No Drug Use: none Patient Lives Alone: No Significant Family History: no pertinent family hx - Nursing Vital Signs Nursing Vital Signs: Initial Vital Signs Temperature 98.4 F 09/17/21 18:46 Pulse Rate 95 H 09/17/21 18:46 Respiratory Rate 18 09/17/21 18:46 Blood Pressure 179/94 09/17/21 18:46 O2 Sat by Pulse Oximetry 97 09/17/21 18:46 Pain Scale Pain Intensity 0 - Physical Exam General Appearance: no apparent distress, alert, anxiety, obese Eye Exam: PERRL/EOMI, eyes nml inspection Ears, Nose, Throat Exam: normal ENT inspection, TMs normal, pharynx normal, moist mucous membranes Neck Exam: normal inspection, non-tender, supple, full range of motion Respiratory Exam: normal breath sounds, lungs clear, airway intact, No chest tenderness, No respiratory distress Cardiovascular Exam: regular rate/rhythm, normal heart sounds, normal peripheral pulses Gastrointestinal/Abdomen Exam: soft, normal bowel sounds, No tenderness Pelvic Exam: not done Rectal Exam: not done Back Exam: normal inspection, normal range of motion, No CVA tenderness, No vertebral tenderness Extremity Exam: normal inspection, normal range of motion, pelvis stable Neurologic Exam: alert, oriented x 3, cooperative, 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 Her area plugging get the hell out of here to go eat. I am hungry. Patient's vital signs are stable. She is afebrile. I did perform a history and physical exam. There are no emergency issues. Patient wants to go home. Counseled pt/family regarding: diagnosis - Departure Departure Disposition: Home Clinical Impression: Arthralgia, Myalgia, Pharyngitis Condition: Stable Critical Care Time: No Referrals: MARIELA SOMMER [Primary Care Provider] - Follow up/PCP as directed Additional Instructions: Drink plenty of fluids. If there are no contraindications, use Tylenol ibuprofen for pain control. Follow-up with your primary care physician for further evaluation and management.
[2021-09-17 20:15] LABS: Absolute Neutrophil Ct (ANC) 8.83 x10^3/uL (1.4-6.9); Basophil (Absolute #) 0.04 x10^3/uL (0-0.4); Eosinophil % 0.4 % (0.00-5.0); Eosinophil (Absolute #) 0.06 x10^3/uL (0-0.5); Hematocrit 32.6 % (35-47); Hemoglobin 9.6 g/dL (12.0-16.0); Lymphocyte (Absolute #) 3.05 x10^3/uL (1.0-4.6); Lymphocytes % 22.9 % (24.0-44.0); Mean Cell Volume 81.3 fL (78-100); Mean Corpuscular Hemoglobin 23.9 pg (26-32); Mean Corpuscular Hgb Concent. 29.4 g/dL (32-36); Mean Platelet Volume 9.2 fL (7.5-11.0); Monocyte (Absolute #) 1.29 x10^3/uL (0.0-1.3); Monocytes % 9.7 % (0.0-12.0); Neutrophil % 66.2 % (36.0-66.0); Platelet Count 452 x10^3/uL (150-450); Red Blood Count 4.01 x10^6/uL (4.1-5.4); Red Cell Distribution Width 15.7 % (11.5-14.0); White Blood Count 13.3 x10^3/uL (4.0-10.5)
[2021-09-17 20:28] LABS: ACETAMINOPHEN < 10 ug/ml (10-30); ALKALINE PHOSPHATASE 99 U/L (38-126); BLOOD UREA NITROGEN 11 mg/dL (7-17); CHLORIDE 99 mmol/L (98-107); Calcium 8.5 mg/dL (8.4-10.2); Carbon Dioxide 26 mmol/L (22-30); Creatinine 1 0.76 mg/dL (0.52-1.04); EST GLOMERULAR FILTRATION RATE > 60.0 ML/MIN; ETHYL ALCOHOL < 10 mg/dL (0-10); Glucose 90 mg/dL (74-106); Potassium 3.4 mmol/L (3.5-5.1); SALICYLATE < 1.0 mg/dL (2-20); SGOT/AST 34 U/L (14-36); SGPT/ALT 17 U/L (0-35); SODIUM 134 mmol/L (137-145); Total Protein 7.5 g/dL (6.3-8.2)
--- NOTE | 2021-09-17 20:47 | XRAY ---
Indication: Acute mental status change. Multiple contiguous axial images obtained through the head without contrast. Comparison: None Age-appropriate global atrophy and minimal periventricular degenerative micro-ischemia bilaterally. 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 No acute intracranial hemorrhage, abnormal extra-axial fluid collection, or mass effect. Fourth ventricle is midline without hydrocephalus. Bony calvarium intact. Paranasal sinuses and mastoid air cells are clear. Impression: Nonacute senile brain. Incidental subcentimeter remote infarct right centrum semiovale.
[2021-09-17 21:00] LABS: INFLUENZA A NEGATIVE (NEGATIVE); INFLUENZA B NEGATIVE (NEGATIVE); RESPIRATORY SYNCTIAL VIRUS NEGATIVE (Negative)
[2021-09-17 21:10] LABS: SARS-CoV-2 Xpert Express POSITIVE (NEGATIVE)
[2021-09-17 21:28] LABS: Appearance CLEAR (CLEAR); Bilirubin NEGATIVE (NEGATIVE); Dipstick done @ ? MAIN LAB; Glucose NEGATIVE (NEGATIVE); Ketones NEGATIVE (NEGATIVE); Nitrite NEGATIVE (NEGATIVE); Protein,Urine Dip NEGATIVE (Negative); RBC NEGATIVE Ery/ul (0-5); Urine Cultured Indicated? NO; Urobilinogen 0.2 mg/dL (0-1)
[2021-09-17 21:29] VITALS: O2SAT 98
[2021-09-17 21:39] LABS: Amphetamine,Urine NEGATIVE (NEGATIVE); Barbiturate,Urine NEGATIVE (NEGATIVE); Benzodiazepine,Urine POSITIVE (NEGATIVE); Methadone,Urine NEGATIVE (NEGATIVE); Opiate,Urine NEGATIVE (NEGATIVE); PCP,Urine NEGATIVE (NEGATIVE); THC,Urine NEGATIVE (NEGATIVE)
[2021-09-18] MEDS ORDERED: Zyprexa Zydis 5 MG ONE (00:09)
[2021-09-18] MEDS ORDERED: zyPREXA 5MG TABLET PO ONE (00:11)
[2021-09-18] MEDS ORDERED: Zyprexa Zydis 5 MG PO ONE (00:20)
[2021-09-18 01:23] VITALS: BP 131/81; PULSE 69
== END 2021-09-18 01:22 | disposition home or self-care (01) ==
LOC: ED 18:22
DX: U07.1 COVID-19 (principal); F25.9 Schizoaffective disorder, unspecified; M25.59 Pain in other specified joint; M79.10 Myalgia, unspecified site; J02.9 Acute pharyngitis, unspecified; J44.9 Chronic obstructive pulmonary disease, unspecified; Z28.310 Unvaccinated for COVID-19
CPT/HCPCS: 0241U; 36415; 70450; 80053; 80307; 81015; 85025; 99283; G0480; A9270-GY

== ENCOUNTER 2021-10-11 19:14 | Emergency (ER) | payer OTHER ==
[2021-10-11 20:00] LABS: ALBUMIN 4.1 g/dL (3.5-5.0); ALKALINE PHOSPHATASE 135 U/L (38-126); AMYLASE 66 U/L (30-110); ANION GAP 13.4 MEQ/L (5-15); BLOOD UREA NITROGEN 12 mg/dL (7-17); CHLORIDE 103 mmol/L (98-107); Calcium 8.8 mg/dL (8.4-10.2); Carbon Dioxide 25 mmol/L (22-30); Creatinine 1 0.68 mg/dL (0.52-1.04); EST GLOMERULAR FILTRATION RATE > 60.0 ML/MIN; Glucose 116 mg/dL (74-106); LIPASE 33 U/L (23-300); Potassium 3.9 mmol/L (3.5-5.1); SGOT/AST 25 U/L (14-36); SGPT/ALT 16 U/L (0-35); SODIUM 137 mmol/L (137-145); Total Protein 7.8 g/dL (6.3-8.2)
[2021-10-11 21:04] LABS: Appearance CLEAR (CLEAR); Bacteria RARE /HPF (NEGATIVE); Bilirubin NEGATIVE (NEGATIVE); Epithelial Cells MANY /HPF (FEW); Glucose NEGATIVE (NEGATIVE); Ketones NEGATIVE (NEGATIVE); Mucus SLIGHT /HPF (NEGATIVE); Nitrite NEGATIVE (NEGATIVE); Ph 6.5 (5-6); Protein,Urine Dip TRACE (Negative); RBC 0-2 /HPF (0-2); RBC TRACE-INTACT Ery/ul (0-5); Urine Cultured Indicated? YES; Urobilinogen 0.2 mg/dL (0-1)
[2021-10-11 21:09] LABS: Dipstick done @ ? MAIN LAB
[2021-10-11] MEDS ORDERED: Rocephin 500 MG INJ IM ONE (22:26)
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
[2021-10-11 22:36] VITALS: BP 112/85; PULSE 102; O2SAT 98
[2021-10-11] MEDS ORDERED: Rocephin 500 MG INJ ONE (22:37)
--- NOTE | 2021-10-13 16:12 | XRAY ---
Exam: Acute abdominal series from 10/11/2021. Comparison: AP upright portable chest film from 09/10/2021 and acute abdominal series from 04/18/2020. Indication: 51-year-old female with abdominal pain; nausea and vomiting. Findings: There is mild hypoventilation of the lungs on the PA chest film. EKG leads are seen in place. The transverse heart size is normal. The lung argueta appear clear. Pulmonary vascularity is normal. No pneumothorax or pleural fluid is seen. No free air is seen underneath the hemidiaphragms. Supine and upright films of the abdomen reveal abundant fluid and air density within the stomach lumen with an air-fluid level coursing across both the gastric fundus, as well as the distal antrum or proximal duodenum. Surgical clips consistent with prior cholecystectomy are seen within the right upper quadrant. There is air within normal caliber small bowel loops throughout the right hemiabdomen and slight distention of a small bowel loop within the left midabdomen. I suspect that there are multiple fluid-filled small bowel loops within the left hemiabdomen. Not much definite colonic gas is seen, although there may be a small amount of air within the hepatic flexure. No definite colon gas is seen within the left hemiabdomen. There are multiple scattered air-fluid levels within the aerated small bowel loops. Calcified phleboliths are seen within the lower pelvis. No organomegaly is seen. There is mild convexity of the lower thoracic spine toward the right centered at T11-T12 on the upright image. Mild degenerative spurring is seen within the lower thoracic spine and throughout the lumbar spine. Sacroiliac joints and hip joint spaces appear essentially unremarkable. Impression: 1. The bowel gas pattern is abnormal, but nonspecific. These findings may be due to a generalized ileus or gastroenteritis. If symptoms persists, I would recommend correlation with a CT of the abdomen and pelvis for further evaluation. 2. No free intraperitoneal air is seen. 3. Status post cholecystectomy. 4. Mildly hypoinflated chest. However, no acute cardiopulmonary disease is seen.
== END 2021-10-11 23:02 | disposition home or self-care (01) ==
LOC: ED 19:14
DX: N39.0 Urinary tract infection, site not specified (principal); R11.10 Vomiting, unspecified; R10.84 Generalized abdominal pain; J44.9 Chronic obstructive pulmonary disease, unspecified; Z79.899 Other long term (current) drug therapy; Z28.310 Unvaccinated for COVID-19; Z86.16 Personal history of COVID-19
CPT/HCPCS: 36415; 74022; 80053; 81015; 82150; 83690; 87086; 96372; 99283; J0696

== ENCOUNTER 2021-10-16 21:51 | Emergency (ER) | payer OTHER ==
[2021-10-16 22:06] VITALS: O2SAT 95
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
[2021-10-16 22:21] VITALS: BP 110/78; PULSE 62
== END 2021-10-16 22:23 | disposition left against medical advice (07) ==
LOC: ED 21:51
DX: F41.0 Panic disorder [episodic paroxysmal anxiety] (principal); Z59.89 Other problems related to housing and economic circumstances; R06.02 Shortness of breath; R00.2 Palpitations; R11.2 Nausea with vomiting, unspecified; J44.9 Chronic obstructive pulmonary disease, unspecified; Z79.899 Other long term (current) drug therapy; Z86.16 Personal history of COVID-19; Z28.310 Unvaccinated for COVID-19
CPT/HCPCS: 99281

== ENCOUNTER → 2021-10-16 | Emergency (ER) | payer OTHER | LOC: ED 21:46 → MERGE 21:46 | DX: Z53.8 Procedure and treatment not carried out for other reasons (principal) ==

== ENCOUNTER 2022-04-09 21:05 | Emergency (ER) | payer OTHER ==
[2022-04-09 21:49] LABS: Absolute Neutrophil Ct (ANC) 6.56 x10^3/uL (1.4-6.9); BASOPHIL % 0.4 % (0.0-0.4); Basophil (Absolute #) 0.04 x10^3/uL (0-0.4); Eosinophil % 1.1 % (0.00-5.0); Hematocrit 31.8 % (35-47); IMMATURE GRAN # 0.05 x10^3u/L (0.00-0.03); IMMATURE GRAN % 0.5 % (0.00-0.4); Lymphocyte (Absolute #) 2.07 x10^3/uL (1.0-4.6); Lymphocytes % 21.7 % (24.0-44.0); Mean Cell Volume 80.7 fL (78-100); Mean Corpuscular Hemoglobin 22.8 pg (26-32); Mean Corpuscular Hgb Concent. 28.3 g/dL (32-36); Mean Platelet Volume 9.1 fL (7.5-11.0); Monocytes % 7.4 % (0.0-12.0); Neutrophil % 68.9 % (36.0-66.0); Platelet Count 388 x10^3/uL (150-450); Red Blood Count 3.94 x10^6/uL (4.1-5.4); Red Cell Distribution Width 21.5 % (11.5-14.0); White Blood Count 9.5 x10^3/uL (4.0-10.5)
--- NOTE | 2022-04-09 21:49 | ERPHSYRPT ---
- History of Present Illness Time Seen by Provider: 04/09/22 21:48 Source: patient Exam Limitations: no limitations Patient Subjective Stated Complaint: pt states she has been having rt mouth pain radiating down her neck. states she has been having these pains off and on for months. Triage Nursing Assessment: pt alert and oriented, answers questions approp. pt ambualtory with steady gait noted. respirations nonalbored. skin warm and dry. heart rate 90's sinus rhythm on monitor. Physician History: pt states she has been having rt mouth pain radiating down her neck. states she has been having these pains off and on for months. very talkative, Timing/Duration: week(s) Severity: mild Associated Symptoms: chest pain Allergies/Adverse Reactions: blue dye Allergy (Verified 04/09/22 21:39) levothyroxine sodium [From Synthroid] Allergy (Verified 04/09/22 21:39) Home Medications: PARoxetine HCL [Paroxetine HCl] 40 mg PO DAILY 10/25/18 [History] Oxybutynin Chloride Xl 5 mg [Ditropan XL 5 MG] 15 mg PO DAILY 04/18/20 [History] Albuterol Sulfate [Albuterol Sulfate Hfa] 2 puffs IH BID 01/04/22 [History] Aspirin EC 325 mg [Ecotrin 325 MG] 325 mg PO DAILY 01/04/22 [History] Aspirin EC 81 mg [Ecotrin 81 mg] 81 mg PO DAILY 01/04/22 [History] Cetirizine HCl [All Day Allergy Relief] 1 cap PO UD 01/04/22 [History] Cholecalciferol (Vitamin D3) [Vitamin D] 1 tab PO WEEKLY 01/04/22 [History] Cyanocobalamin/Cobamamide [Vitamin B-12 5,000 Mcg Tab Sl] 1 tab SL DAILY 01/04/22 [History] Fluticasone/Umeclidin/Vilanter [Trelegy Ellipta 100-62.5-25] 1 blist IH DAILY [History] Levothyroxine Sodium [Tirosint] 200 mcg PO DAILY 01/04/22 [History] Loratadine/Pseudoephedrine [Allergy Relief D-24Hr Tablet] 1 cap PO DAILY 01/04/22 [History] Melatonin 2 tab SL HS 01/04/22 [History] Omeprazole 10 mg PO DAILY 01/04/22 [History] Pravastatin Sodium 20 mg PO DAILY 01/04/22 [History] Turmeric 1 cap PO DAILY 01/04/22 [History] diphenhydrAMINE HCL [Benadryl] 1 cap PO UD 01/04/22 [History] diphenhydrAMINE HCL [Sleep Aid] 1 cap PO UD 01/04/22 [History] Hx Tetanus, Diphtheria Vaccination/Date Given: (unknown) Hx Influenza Vaccination/Date Given: No Hx Pneumococcal Vaccination/Date Given: No Travel Risk - International Travel Have you traveled outside of the country in past 3 weeks: No - Coronavirus Screening Are you exhibiting any of the following symptoms?: No Close contact with a COVID-19 positive Pt in past 14-21 Days: No - Vaccine Status Have you recieved a Covid-19 vaccination: No - Review of Systems Constitutional: No Fever, No Chills Eyes: No Symptoms Ears, Nose, & Throat: No Symptoms, Mouth Pain, Throat Pain Respiratory: No Cough, No Dyspnea Cardiac: Chest Pain, No Edema, No Syncope Abdominal/Gastrointestinal: No Abdominal Pain, No Nausea, No Vomiting, No Diarrhea Genitourinary Symptoms: No Dysuria Musculoskeletal: No Back Pain, No Neck Pain Skin: No Rash Neurological: No Dizziness, No Focal Weakness, No Sensory Changes Psychological: No Symptoms Endocrine: No Symptoms All Other Systems: Reviewed and Negative - Past Medical History Pertinent Past Medical History: Yes Neurological History: Migraines ENT History: No Pertinent History Cardiac History: Arrhythmia, Peripheral Vascular Disease Respiratory History: Sleep Apnea, Other, COPD, Asthma, Bronchitis Endocrine Medical History: No Pertinent History Musculoskeletal History: Osteoarthritis GI Medical History: GERD History: No Pertinent History Psycho-Social History: Depression, Anxiety Female Reproductive Disorders: No Pertinent History Other Medical History: Covid in August 2021 - Past Surgical History Past Surgical History: Yes Neuro Surgical History: No Pertinent History Cardiac: No Pertinent History Respiratory: No Pertinent History Gastrointestinal: Cholecystectomy Genitourinary: No Pertinent History Musculoskeletal: No Pertinent History Female Surgical History: No Pertinent History Other Surgical History: thyroid removed with "radioactive iodine pill" - Social History Smoking Status: Former smoker Exposure to second hand smoke: No Drug Use: none Patient Lives Alone: No Significant Family History: no pertinent family hx - Nursing Vital Signs Nursing Vital Signs: Initial Vital Signs Temperature 98.3 F 04/09/22 21:27 Pulse Rate 98 H 04/09/22 21:27 Respiratory Rate 18 04/09/22 21:27 Blood Pressure 140/106 04/09/22 21:27 O2 Sat by Pulse Oximetry 97 04/09/22 21:27 Pain Scale Pain Intensity 5 - Physical Exam General Appearance: no apparent distress, alert Eye Exam: PERRL/EOMI, eyes nml inspection Ears, Nose, Throat Exam: normal ENT inspection, TMs normal, pharynx normal, moist mucous membranes Neck Exam: normal inspection, non-tender, supple, full range of motion Respiratory Exam: normal breath sounds, lungs clear, No respiratory distress Cardiovascular Exam: regular rate/rhythm, normal heart sounds, normal peripheral pulses Gastrointestinal/Abdomen Exam: soft, normal bowel sounds, No tenderness, No mass Back Exam: normal inspection, normal range of motion, No CVA tenderness, No vertebral tenderness Extremity Exam: normal inspection, normal range of motion, pelvis stable Neurologic Exam: alert, oriented x 3, cooperative, normal mood/affect, nml cerebellar function, nml station & gait, sensation nml, No motor deficits Skin Exam: normal color, warm, dry, No rash Lymphatic Exam: No adenopathy SpO2: 97 - Course Nursing assessment & vital signs reviewed: Yes EKG Interpreted by Me: Sinus Rhythm Rhythm Strip: Normal Sinus Rhythm Ordered Tests: Active Orders 24 hr Category Date Time Status EKG-ER Only STAT Care 04/09/22 21:32 Active CHEST 1 VIEW (PORTABLE) Stat Exams 04/09/22 21:33 Taken CBC W DIFF Stat Lab 04/09/22 21:47 Completed CMP Stat Lab 04/09/22 21:47 Completed TROPONIN Q4H Lab 04/09/22 21:47 Completed TROPONIN Q4H Lab 04/10/22 01:45 Ordered TROPONIN Q4H Lab 04/10/22 05:45 Ordered Lab/Rad Data: Laboratory Result Diagrams 04/09/22 21:47 04/09/22 21:47 Laboratory Results 04/09/22 04/09/22 04/09/22 Range/Units 21:47 21:47 21:47 WBC 9.5 (4.0-10.5) x10^3/uL RBC 3.94 L (4.1-5.4) x10^6/uL Hgb 9.0 L (12.0-16.0) g/dL Hct 31.8 L (35-47) % MCV 80.7 (78-100) fL MCH 22.8 L (26-32) pg MCHC 28.3 L (32-36) g/dL RDW 21.5 H (11.5-14.0) % Plt Count 388 (150-450) x10^3/uL MPV 9.1 (7.5-11.0) fL Gran % 68.9 H (36.0-66.0) % Immature Gran % (Auto) 0.5 H (0.00-0.4) % Nucleat RBC Rel Count 0.0 (0.00-0.1) % Eos # (Auto) 0.10 (0-0.5) x10^3/uL Immature Gran # (Auto) 0.05 H (0.00-0.03) x10^3u/L Absolute Lymphs (auto) 2.07 (1.0-4.6) x10^3/uL Absolute Monos (auto) 0.70 (0.0-1.3) x10^3/uL Absolute Nucleated RBC 0.00 (0.00-0.01) x10^3u/L Lymphocytes % 21.7 L (24.0-44.0) % Monocytes % 7.4 (0.0-12.0) % Eosinophils % 1.1 (0.00-5.0) % Basophils % 0.4 (0.0-0.4) % Absolute Granulocytes 6.56 (1.4-6.9) x10^3/uL Basophils # 0.04 (0-0.4) x10^3/uL Sodium 136 L (137-145) mmol/L Potassium 3.7 (3.5-5.1) mmol/L Chloride 100 (98-107) mmol/L Carbon Dioxide 30 (22-30) mmol/L Anion Gap 9.4 (5-15) MEQ/L BUN 12 (7-17) mg/dL Creatinine 0.80 (0.52-1.04) mg/dL Estimated GFR > 60.0 ML/MIN Glucose 88 (74-106) mg/dL Calcium 8.3 L (8.4-10.2) mg/dL Total Bilirubin 0.20 (0.2-1.3) mg/dL AST 25 (14-36) U/L ALT 12 (0-35) U/L Alkaline Phosphatase 103 (38-126) U/L Troponin I < 0.012 (0.000-0.034) ng/mL Serum Total Protein 7.2 (6.3-8.2) g/dL Albumin 4.0 (3.5-5.0) g/dL - Progress Progress: improved Counseled pt/family regarding: lab results, diagnosis, need for follow-up, rad results Medical Desision Making - Discussion of managment Reviewed:: Test results, Need for additional workup Agreed on:: Treatment plan, need for follow-up - Diagnostic Testing Diagnostic test were ordered, analyzed, and reviewed by me: Yes Radiological Interpretation: Reviewed by me - Risk of complications Low Risk: Low risk of morbidity from additional dx testing or treatment The pt has a mod risk of morbidity or mortality based on: Need for prescription drug management, Diagnosis or treatment limited by SDOH - Departure Departure Disposition: Home Clinical Impression: Neck pain on right side Chest pain Qualifiers: Chest pain type: other chest pain Qualified Code(s): R07.89 - Other chest pain; R07.8 - Other chest pain Condition: Stable Critical Care Time: Yes Critical Care Time(excluding separately billable procedures): Critical 30-74 mins Referrals: MARIELA AGUIRRE [Primary Care Provider] - Follow up/PCP as directed Instructions: Chest Pain (DC) Additional Instructions: Discharge/Care Plan ABHIJIT HERNANDEZ was seen on 04/09/22 in the Emergency Room. The patient was counseled regarding Diagnosis,Lab results, Imaging studies, need for follow up and when to return to the Emergency Room. Prescriptions given: Discharge Note I have spoken with the patient and/or caregivers. I have explained the patient's condition, diagnosis and treatment plan based on the information available to me at this time. I have answered the patient's and/or caregiver's questions and addressed any concerns. The patient and/or caregivers have as good understanding of the patient's diagnosis, condition and treatment plan as can be expected at this point. The vital signs have been stable. The patient's condition is stable and appropriate for discharge from the emergency department. The patient will pursue further outpatient evaluation with the primary care physician or other designated or consulting physician as outlined in the discharge instructions. The patient and/or caregivers are agreeable to this plan of care and follow-up instructions have been explained in detail. The patient and/or caregivers have received these instruction. The patient/and or caregivers are aware that any significant change in condition or worsening of symptoms should prompt an immediate return to this or the closest emergency department or call 911. ABHIJIT HERNANDEZ was seen on 04/09/22 n the Emergency Room. At that time you were treated for an emergent condition, during your visit Laboratory, Radiology and/o r other procedures may have been ordered. It is very important that you follow- up with your Primary Care Physician MARIELA AGUIRRE within the next 24-48 hours to review your Emergency Room visit and the final results of testing that was ordered. Some test results such as Urine Cultures, Blood Cultures, and other cultures if ordered will not be finalized for 24-48 hours. If you do not have a Primary Care Provider please call the medical records d [facility] at [phone] ext [phone] to obtain a copy of your results or you may sign into our patient portal to obtain these results by visiting us @ [email or web address] and completing the following steps: 1. Click on the Patient Portal link 2. Click the Patient Self Enrollment Link to complete the enrollment form and entering your 3. Once the enrollment form is completed you will receive an email with a temporary ID and password at the email address you provided. 4. Next choose a user name and password. Your user name must be at least 4 characters long and your password must be at least 4 characters long. 5. Choose a security question from the list and provide your answer to the question. If you already have signed into the Health Portal you may access your Health Care Information 12/09 by the following steps: 1. Login to our website @ [email or web address] 2. Enter your original user name and password. FAQS The [facility] Health Portal is an online tool that contains your Lab Results, Radiology Reports, Visit History, Discharge Instructions and Health Summary Lab and Radiology Results will not be available for 72 hours on the portal. The Portal is a secure site, passwords are encryted and URLs are re-written so they cannot be copied and pasted. You and authorized family members are the only ones who can access your Portal. Also there is a timeout feature that protects your information if you leave the Portal page open. If you have technical difficulty please use the Contact Us link on the page this will allow you to submit any questions you have regarding the Portal or you may contact the Medical Record Department at [phone] ext [phone].
[2022-04-09 22:04] LABS: ALKALINE PHOSPHATASE 103 U/L (38-126); ANION GAP 9.4 MEQ/L (5-15); BLOOD UREA NITROGEN 12 mg/dL (7-17); CHLORIDE 100 mmol/L (98-107); Calcium 8.3 mg/dL (8.4-10.2); Carbon Dioxide 30 mmol/L (22-30); EST GLOMERULAR FILTRATION RATE > 60.0 ML/MIN; Glucose 88 mg/dL (74-106); Potassium 3.7 mmol/L (3.5-5.1); SGOT/AST 25 U/L (14-36); SGPT/ALT 12 U/L (0-35); SODIUM 136 mmol/L (137-145); Total Protein 7.2 g/dL (6.3-8.2)
[2022-04-09 22:47] VITALS: BP 165/102; PULSE 96; O2SAT 100
[2022-04-09 23:51] LABS: Slide Review 1 YES
--- NOTE | 2022-04-10 08:44 | XRAY ---
Indication: Right chest and neck pain. Comparison: September 10, 2021 Portable chest again demonstrates normal heart and lungs. Bony thorax intact with mild degenerative changes. No new/acute findings.
== END 2022-04-09 22:47 | disposition home or self-care (01) ==
LOC: ED 21:05
DX: M54.2 Cervicalgia (principal); R07.89 Other chest pain; Z79.899 Other long term (current) drug therapy; Z28.310 Unvaccinated for COVID-19; Z86.16 Personal history of COVID-19
CPT/HCPCS: 36415; 71045; 80053; 84484; 85025; 93005; 99283; 99291

== ENCOUNTER 2022-07-17 17:43 | Emergency (ER) | payer OTHER ==
[2022-07-17] MEDS ORDERED: TORAdol 30 mg Injection IM ONE (18:22)
[2022-07-17] MEDS ORDERED: TORAdol 30 mg Injection ONE (18:36)
--- NOTE | 2022-07-17 18:40 | ERPHSYRPT ---
- History of Present Illness Source: patient Exam Limitations: no limitations Patient Subjective Stated Complaint: Pt states "I have tingling and some numbing to my right upper thigh." Triage Nursing Assessment: PT presented alert and oriented X 3, skin pwd. Pt ambulates with a wide gait, able to speak in clear full sentences pt csm x 4. no other complaints. Timing/Duration: day(s) (2), gradual onset, worse Severity: moderate Hx Tetanus, Diphtheria Vaccination/Date Given: No (unknown) Hx Influenza Vaccination/Date Given: No Hx Pneumococcal Vaccination/Date Given: No Immunizations Up to Date: No <TOMASZ DERAS - Last Filed: 07/17/22 18:35> <LAURA ODELL - Last Filed: 07/17/22 19:31> - History of Present Illness Time Seen by Provider: 07/17/22 17:48 Physician History: 51-year-old with multiple medical problems including pulmonary embolism, stopped taking anticoagulants almost 2 years ago presented in the ER with chief complaint of left thigh pain which she describes burning and tingling sensation with some radiation to the leg for last couple of days with progressive worsening. Patient denies any fall or trauma. No swelling or redness noticed. No fever or chills for it. Denies any history of diabetes mellitus. (TOMASZ DERAS) Allergies/Adverse Reactions: blue dye Allergy (Verified 05/30/22 12:07) levothyroxine sodium [From Synthroid] Allergy (Verified 05/30/22 12:07) Home Medications: PARoxetine HCL [Paroxetine HCl] 40 mg PO DAILY 10/25/18 [History] Oxybutynin Chloride Xl 5 mg [Ditropan XL 5 MG] 15 mg PO DAILY 04/18/20 [History] Albuterol Sulfate [Albuterol Sulfate Hfa] 2 puffs IH BID 01/04/22 [History] Aspirin EC 325 mg [Ecotrin 325 MG] 325 mg PO DAILY 01/04/22 [History] Aspirin EC 81 mg [Ecotrin 81 mg] 81 mg PO DAILY 01/04/22 [History] Cetirizine HCl [All Day Allergy Relief] 1 cap PO UD 01/04/22 [History] Cholecalciferol (Vitamin D3) [Vitamin D] 1 tab PO WEEKLY 01/04/22 [History] Cyanocobalamin/Cobamamide [Vitamin B-12 5,000 Mcg Tab Sl] 1 tab SL DAILY 01/04/22 [History] Fluticasone/Umeclidin/Vilanter [Trelegy Ellipta 100-62.5-25] 1 blist IH DAILY 01/04/22 [History] Levothyroxine Sodium [Tirosint] 225 mcg PO DAILY 01/04/22 [History] Loratadine/Pseudoephedrine [Allergy Relief D-24Hr Tablet] 1 cap PO DAILY 01/04/22 [History] Melatonin 2 tab SL HS 01/04/22 [History] Omeprazole 10 mg PO DAILY 01/04/22 [History] Pravastatin Sodium 20 mg PO DAILY 01/04/22 [History] Turmeric 1 cap PO DAILY 01/04/22 [History] diphenhydrAMINE HCL [Sleep Aid] 1 cap PO UD 01/04/22 [History] Lisinopril 5 mg [Zestril 5 MG] 5 mg PO DAILY 07/17/22 [History] Travel Risk - International Travel Have you traveled outside of the country in past 3 weeks: No - Coronavirus Screening Are you exhibiting any of the following symptoms?: No Close contact with a COVID-19 positive Pt in past 14-21 Days: No - Vaccine Status Have you recieved a Covid-19 vaccination: No <TMOASZ DERAS - Last Filed: 07/17/22 18:35> - Review of Systems Constitutional: No Symptoms Eyes: No Symptoms Ears, Nose, & Throat: No Symptoms Respiratory: No Symptoms Cardiac: No Symptoms Abdominal/Gastrointestinal: No Symptoms Genitourinary Symptoms: No Symptoms Musculoskeletal: Arthralgias Skin: No Symptoms Psychological: Anxiety Endocrine: No Symptoms Immunological/Allergic: No Symptoms <TOMASZ DERAS - Last Filed: 07/17/22 18:35> - Past Medical History Pertinent Past Medical History: Yes Neurological History: Migraines ENT History: No Pertinent History Cardiac History: Arrhythmia, Peripheral Vascular Disease Respiratory History: Sleep Apnea, Other, COPD, Asthma, Bronchitis Endocrine Medical History: No Pertinent History Musculoskeletal History: Osteoarthritis GI Medical History: GERD History: No Pertinent History Psycho-Social History: Depression, Anxiety Female Reproductive Disorders: No Pertinent History Other Medical History: Covid in August 2021 - Past Surgical History Past Surgical History: Yes Neuro Surgical History: No Pertinent History Cardiac: Other Respiratory: No Pertinent History Gastrointestinal: Cholecystectomy Genitourinary: No Pertinent History Musculoskeletal: No Pertinent History Female Surgical History: No Pertinent History Other Surgical History: thyroid removed with "radioactive iodine pill". peripheral artery - Social History Smoking Status: Former smoker Exposure to second hand smoke: No Drug Use: none Patient Lives Alone: No Significant Family History: no pertinent family hx <TOMASZ DERAS - Last Filed: 07/17/22 18:35> - Physical Exam General Appearance: no apparent distress, alert, anxiety Eye Exam: PERRL/EOMI Ears, Nose, Throat Exam: normal ENT inspection Neck Exam: normal inspection, full range of motion Respiratory Exam: normal breath sounds, lungs clear Cardiovascular Exam: regular rate/rhythm, normal heart sounds Back Exam: normal inspection Extremity Exam: normal inspection, normal range of motion, pelvis stable, tende rness (Minimal tenderness left anteromedial thigh. Distal neurovascular well intact.) Neurologic Exam: alert, oriented x 3, cooperative Skin Exam: normal color SpO2 Interpretation: normal SpO2: 97 O2 Delivery: Room Air <TOMASZ DERAS - Last Filed: 07/17/22 18:35> - Nursing Vital Signs Nursing Vital Signs: Initial Vital Signs Temperature 97.8 F 07/17/22 17:52 Pulse Rate 86 07/17/22 17:52 Respiratory Rate 20 07/17/22 17:52 Blood Pressure 140/77 07/17/22 17:52 O2 Sat by Pulse Oximetry 97 07/17/22 17:52 Pain Scale Pain Intensity 2 Ordered Tests: Active Orders 24 hr Category Date Time Status VENOUS UNILAT/LIMITED EXTREMIT [US] Stat Exams 07/17/22 18:22 Ordered Medication Summary Discontinued Medications Generic Name Dose Route Start Last Admin Trade Name Freq PRN Reason Stop Dose Admin Ketorolac Tromethamine 30 mg 07/17/22 18:22 07/17/22 18:37 Ketorolac Tromethamine 30 Mg/Ml Inj IM 07/17/22 18:23 30 mg STAT ONE Administration Ketorolac Tromethamine Confirm 07/17/22 18:36 Ketorolac Tromethamine 30 Mg/Ml Inj Administered 07/17/22 18:37 Dose 30 mg .ROUTE .STK-MED ONE - Progress Progress: unchanged <TOMASZ DERAS - Last Filed: 07/17/22 18:35> <LAURA ODELL - Last Filed: 07/17/22 19:31> - Progress Progress Note: 07/17/22 18:58 51-year-old with multiple medical problems including pulmonary embolism, stopped taking anticoagulants almost 2 years ago presented in the ER with chief complaint of left thigh pain which she describes burning and tingling sensation with some radiation to the leg for last couple of days with progressive worsening. Patient denies any fall or trauma. No swelling or redness noticed. No fever or chills for it. Denies any history of diabetes mellitus. She is given pain medication for symptomatic relief. We will obtain ultrasound to rule out DVT. No osseous tenderness. No difficulty ambulation. No signs of cellulitis locally and systemically. Could be neuropathy. If ultrasound negative patient probably having neuropathic pain. Work-up is pending, care is transferred to Dr. Odell at shift change (TOMASZ DERAS) 07/17/22 19:22 No DVT on US reported by US tech. (LAURA ODELL) Medical Desision Making - Diagnostic Testing Diagnostic test were ordered, analyzed, and reviewed by me: Yes Radiological Interpretation: Reviewed by me, Teleradiologist Report - Risk of complications The pt has a mod risk of morbidity or mortality based on: Need for prescription drug management <LAURA ODELL - Last Filed: 07/17/22 19:31> <TOMASZ DERAS - Last Filed: 07/17/22 18:35> - Departure Departure Disposition: Home Critical Care Time: No <LAURA ODELL - Last Filed: 07/17/22 19:31> - Departure Clinical Impression: Left thigh pain Condition: Good Referrals: MARIELA AGUIRRE [Primary Care Provider] - Follow up/PCP as directed Prescriptions: Ketorolac Trometh 10 mg Tab [TORAdol 10 MG TABLET] 10 mg PO TID PRN #15 tablet PRN Reason: Pain
[2022-07-17 18:47] VITALS: BP 137/85; PULSE 82; O2SAT 98
--- NOTE | 2022-07-17 20:10 | XRAY ---
Indication: Pain. Two-dimensional sonogram and color Doppler imaging of the major venous vessels of the left leg performed. Comparison: None No thrombus seen in the examined deep venous vessels of the left leg including greater saphenous vein. Veins demonstrate normal compressibility. Venous waveforms are normal with and without augmentation. Impression: Left leg negative for DVT. Comment: Preliminary report was given.
== END 2022-07-17 19:41 | disposition home or self-care (01) ==
LOC: ED 17:43
DX: M79.652 Pain in left thigh (principal); Z79.899 Other long term (current) drug therapy; Z28.310 Unvaccinated for COVID-19; Z86.16 Personal history of COVID-19
CPT/HCPCS: 93971; 96372; 99283; J1885

== ENCOUNTER 2022-10-18 06:45 | Day surgery (SDC) | payer OTHER ==
[2022-10-18] MEDS ORDERED: Lactated Ringers 1,000 ML IV SCH (07:00)
[2022-10-18] MEDS ORDERED: CEFAZOLIN 2 GM-D5W BAG** 2 GM/50 ML ML IV SCH (07:00)
[2022-10-18 07:10] LABS: HCG URINE TEST NEGATIVE (NEGATIVE)
[2022-10-18] MEDS ORDERED: CEFAZOLIN 2 GM-D5W BAG** 2 GM/50 ML ML IV ONE (07:32)
[2022-10-18] MEDS ORDERED: Lactated Ringers 1,000 ML IV ONE (07:32)
[2022-10-18] MEDS ORDERED: Zofran 4 MG/2 ML VIAL ONE (08:15)
[2022-10-18] MEDS ORDERED: Xylocaine-Mpf 2% 5 Ml Vial ONE (08:15)
[2022-10-18] MEDS ORDERED: Decadron 4 MG INJ ONE (08:15)
[2022-10-18] MEDS ORDERED: DIPRIVAN 200 MG/20 ML IV ONE (08:16)
[2022-10-18] MEDS ORDERED: SUBLIMAZE 100 MCG/2 ML ONE ×2 (08:19→09:47)
[2022-10-18] MEDS ORDERED: Versed 2 MG/2 ML Injection ONE (08:19)
[2022-10-18] MEDS ORDERED: Pre-Attached Lta Kit TP ONE (08:43)
[2022-10-18] MEDS ORDERED: Quelicin Fliptop 200 MG/10 ML ONE (08:46)
[2022-10-18] MEDS ORDERED: ATROPINE SULFATE 1MG ONE (09:04)
[2022-10-18 10:08] VITALS: RESP 18
[2022-10-18 10:39] VITALS: BP 152/102; PULSE 89; TEMP 97.6; O2SAT 94
--- NOTE | 2022-10-19 08:19 | OP ---
SURGERY DATE/TIME: 10/18/2022 0900 PREOPERATIVE DIAGNOSIS: Abnormal uterine bleeding. POSTOPERATIVE DIAGNOSIS: Abnormal uterine bleeding. PROCEDURE: Hysteroscopy D&C with NovaSure ablation. SURGEON: Sarmad Phillip D.O. HORSE FARM MANAGER: Daisy Glover technology architect. ANESTHESIA: General. ESTIMATED BLOOD LOSS: Minimal. COMPLICATIONS: None. INDICATIONS: The risks, benefits, indications and alternatives of the procedure were reviewed with the patient prior to procedure. The patient understood the risk of infection, bleeding, bowel injury, bladder injury, uterine perforation, pelvic infection and thromboembolic disorder associated with this surgery and desires to have this surgery as a possible means to alleviate her current medical condition. DESCRIPTION OF PROCEDURE AND FINDINGS: At this point the patient is taken to the operating room, given general sedation, placed in dorsal lithotomy position, prepped and draped in the usual sterile fashion. A weighted speculum is then placed into the vagina and the anterior lip of the cervix is grasped with a single tooth tenaculum. Endocervical dilators were advanced through the endocervical canal as a means to dilate the cervix and at this point a 5 mm hysteroscope was placed through the endocervical region where visualization of the endometrial lining appeared to be within normal limits. From this point the hysteroscope was removed and the curette was then placed into the fundus of the uterus where curettage was performed in all quadrants of the uterus retrieving a mild amount of tissue. Again, hemostasis was visualized. From this point, the NovaSure was taken through the endocervical region to the fundal region retracted approximately 1 cm and the instrument was engaged with a length of 6.5 cm and a width of 3.4 cm. The machine was turned on for an ablative time of 46 seconds. After complete ablation, the NovaSure was disengaged and removed from the uterine cavity without complication. From this point, all instruments were removed from the patient's vaginal region. The patient was then taken out of the dorsal lithotomy position, was taken out of anesthesia and was then taken to the recovery room in stable condition. All instruments and laps were accounted for x2.
== END 2022-10-18 10:40 | disposition home or self-care (01) ==
LOC: SDC 06:45
PROVIDERS: ATTEND Obstetrics & Gynecology
DX: N93.9 Abnormal uterine and vaginal bleeding, unspecified (principal)
CPT/HCPCS: 81025; J0330; J0461; J0690; J1100; J2250; J2405; J2704; J3010

== ENCOUNTER 2022-10-30 22:21 | Emergency (ER) | payer OTHER ==
[2022-10-30 23:31] VITALS: TEMP 97.6
--- NOTE | 2022-10-31 00:24 | ERPHSYRPT ---
- History of Present Illness Time Seen by Provider: 10/31/22 00:19 Source: patient Exam Limitations: no limitations Patient Subjective Stated Complaint: cut to left hand, is concerned its not healing Triage Nursing Assessment: pt ambulated into ER without diff, pt alert and oriented x4, very talkative. Pt c/o "I'm concerned my cut on my hand isn't healing good". Pt has 1.5 cm cut to left palm which occured approx 10 days ago. Area is pink and closing nicely together. No fever noted. No drainage noted. Physician History: pt has healing lac left palm with normal N/V and good tendon fxn. last tet 8 years by Hx. so we will update. discussed adding prescription topical bactroban adn pt agrees after discussion of risks/benefits. nontebder and good gri[p. Timing/Duration: day(s) Location: hands Possible Causes: other (lac) Associated Symptoms: denies symptoms Allergies/Adverse Reactions: blue dye Allergy (Verified 10/30/22 23:39) levothyroxine sodium [From Synthroid] Allergy (Verified 10/30/22 23:39) Home Medications: PARoxetine HCL [Paroxetine HCl] 40 mg PO DAILY 10/25/18 [History] Oxybutynin Chloride Xl 5 mg [Ditropan XL 5 MG] 15 mg PO DAILY 04/18/20 [History] Albuterol Sulfate [Albuterol Sulfate Hfa] 2 puffs IH BID 01/04/22 [History] Aspirin EC 81 mg [Ecotrin 81 mg] 81 mg PO DAILY 01/04/22 [History] Cetirizine HCl [All Day Allergy Relief] 1 cap PO UD 01/04/22 [History] Cholecalciferol (Vitamin D3) [Vitamin D] 1 tab PO WEEKLY 01/04/22 [History] Cyanocobalamin/Cobamamide [Vitamin B-12 5,000 Mcg Tab Sl] 1 tab SL DAILY 01/04/22 [History] Fluticasone/Umeclidin/Vilanter [Trelegy Ellipta 100-62.5-25] 1 blist IH DAILY 01/04/22 [History] Levothyroxine Sodium [Tirosint] 225 mcg PO DAILY 01/04/22 [History] Loratadine/Pseudoephedrine [Allergy Relief D-24Hr Tablet] 1 cap PO DAILY 01/04/22 [History] Melatonin 2 tab SL HS 01/04/22 [History] Omeprazole 10 mg PO DAILY 01/04/22 [History] Pravastatin Sodium 20 mg PO DAILY 01/04/22 [History] Turmeric 1 cap PO DAILY 01/04/22 [History] diphenhydrAMINE HCL [Sleep Aid] 1 cap PO UD 01/04/22 [History] Lisinopril 5 mg [Zestril 5 MG] 5 mg PO DAILY 07/17/22 [History] Hx Tetanus, Diphtheria Vaccination/Date Given: Yes Hx Influenza Vaccination/Date Given: No Hx Pneumococcal Vaccination/Date Given: No Travel Risk - International Travel Have you traveled outside of the country in past 3 weeks: No - Coronavirus Screening Are you exhibiting any of the following symptoms?: No Close contact with a COVID-19 positive Pt in past 14-21 Days: No - Vaccine Status Have you recieved a Covid-19 vaccination: No - Review of Systems Constitutional: No Fever, No Chills Eyes: No Symptoms Ears, Nose, & Throat: No Symptoms Respiratory: No Cough, No Dyspnea Cardiac: No Chest Pain, No Edema, No Syncope Abdominal/Gastrointestinal: No Abdominal Pain, No Nausea, No Vomiting, No Diarrhea Genitourinary Symptoms: No Dysuria Musculoskeletal: No Back Pain, No Neck Pain Skin: Other (lac healing), No Rash Neurological: No Dizziness, No Focal Weakness, No Sensory Changes Psychological: No Symptoms Endocrine: No Symptoms Hematologic/Lymphatic: No Symptoms Immunological/Allergic: No Symptoms All Other Systems: Reviewed and Negative - Past Medical History Pertinent Past Medical History: Yes Neurological History: Migraines ENT History: No Pertinent History Cardiac History: Arrhythmia, Peripheral Vascular Disease Respiratory History: Sleep Apnea, Other, COPD, Asthma, Bronchitis Endocrine Medical History: No Pertinent History Musculoskeletal History: Osteoarthritis GI Medical History: GERD, Gallbladder Disease History: No Pertinent History Psycho-Social History: Depression, Anxiety Female Reproductive Disorders: No Pertinent History Other Medical History: Covid in August 2021 - Past Surgical History Past Surgical History: Yes Neuro Surgical History: No Pertinent History Cardiac: Other Respiratory: No Pertinent History Gastrointestinal: Cholecystectomy Genitourinary: No Pertinent History Musculoskeletal: No Pertinent History Female Surgical History: Other Other Surgical History: thyroid removed with "radioactive iodine pill". peripheral artery. vaginal dysplasia surgery - Social History Smoking Status: Former smoker Exposure to second hand smoke: Yes Drug Use: none Patient Lives Alone: Yes Significant Family History: no pertinent family hx - Nursing Vital Signs Nursing Vital Signs: Initial Vital Signs Temperature 97.6 F 10/30/22 23:30 Pulse Rate 73 10/30/22 23:30 Respiratory Rate 18 10/30/22 23:30 Blood Pressure 156/123 10/30/22 23:30 O2 Sat by Pulse Oximetry 97 10/30/22 23:30 Pain Scale Pain Intensity 0 - Physical Exam General Appearance: no apparent distress, alert Eye Exam: PERRL/EOMI, eyes nml inspection Ears, Nose, Throat Exam: normal ENT inspection, pharynx normal, moist mucous membranes Neck Exam: normal inspection, non-tender, supple, full range of motion Respiratory Exam: normal breath sounds, lungs clear, No respiratory distress Cardiovascular Exam: regular rate/rhythm, normal heart sounds Gastrointestinal/Abdomen Exam: soft, mass, No tenderness Pelvic Exam: deferred Rectal Exam: deferred Back Exam: normal inspection, normal range of motion, No CVA tenderness, No vertebral tenderness Extremity Exam: normal inspection, normal range of motion Neurologic Exam: alert, oriented x 3, cooperative, normal mood/affect, sensation nml, No motor deficits Skin Exam: normal color, warm, dry SpO2: 97 - Course Nursing assessment & vital signs reviewed: Yes Ordered Tests: Medication Summary Generic Name Dose Route Start Last Admin Trade Name Freq PRN Reason Stop Dose Admin Diphtheria/Tetanus/Acell Pertussis 0.5 ml 10/31/22 00:25 Tdap --Diph,Pertuss(Acell),Tet Vac/Pf 0.5 Ml Vial IM 10/31/22 00:26 .ONCE ONE - Progress Counseled pt/family regarding: diagnosis, need for follow-up Medical Desision Making - Diagnostic Testing Diagnostic test were ordered, analyzed, and reviewed by me: No - Risk of complications The pt has a mod risk of morbidity or mortality based on: Need for prescription drug management - Departure Departure Disposition: Home Clinical Impression: healing lac left hand Condition: Good Critical Care Time: No Referrals: DOCTOR,NO FAMILY [Primary Care Provider] - Follow up/PCP as directed Instructions: Wound Care (DC) Additional Instructions: followup with your DrRustam and return meantime if any problem or concerns. Prescriptions: Mupirocin [Bactroban OINTMENT] 22 gm TP BID #1 cartridge
[2022-10-31] MEDS ORDERED: Adacel Vial IM ONE ×2 (00:25→00:31)
[2022-10-31 00:47] VITALS: BP 101/60; PULSE 74; RESP 18; O2SAT 98
== END 2022-10-31 00:47 | disposition home or self-care (01) ==
LOC: ED 22:21
DX: S61.412D Laceration without foreign body of left hand, subsequent encounter (principal); Z79.899 Other long term (current) drug therapy; Z28.310 Unvaccinated for COVID-19; Z86.16 Personal history of COVID-19
CPT/HCPCS: 90471; 90715; 99282

== ENCOUNTER 2023-01-22 23:33 | Emergency (ER) | payer OTHER ==
[2023-01-23 00:05] VITALS: RESP 20; TEMP 98.2; O2SAT 97
[2023-01-23 00:43] LABS: Group A Strep NOT DETECTED (NEGATIVE)
[2023-01-23] MEDS ORDERED: DELTASONE 20 MG PO ONE (00:53)
--- NOTE | 2023-01-23 00:53 | ERPHSYRPT ---
- History of Present Illness Time Seen by Provider: 01/22/23 23:49 Source: patient Exam Limitations: no limitations Patient Subjective Stated Complaint: pt reports dry, hacking cough. states she also has some resolving sinus pressure and headache Triage Nursing Assessment: pt is aox3, pupils perrl, afebrile, resps easy and non labored, no cough appreciated, pt lung sounds are clear, radial pulses strong and equal, cap refill < 3 seconds, pt skin pink warm dry. pt with rambling speech, answers questions appropriately. Physician History: 52 years old female presented in the ER with chief complaint of flulike symptoms for last 5 days. Patient reports sinus/nasal congestion/pressure which is improving but now still having dry hacking cough with minimal clear sputum. No difficulty breathing. Has been using inhalers as usual for her COPD. Denies fever or chills. No chest pain or palpitations. Denies any known sick contact. Allergies/Adverse Reactions: blue dye Allergy (Verified 01/23/23 00:05) levothyroxine sodium [From Synthroid] Allergy (Verified 01/23/23 00:05) Home Medications: PARoxetine HCL [Paroxetine HCl] 40 mg PO DAILY 10/25/18 [History] Oxybutynin Chloride Xl 5 mg [Ditropan XL 5 MG] 15 mg PO DAILY 04/18/20 [History] Albuterol Sulfate [Albuterol Sulfate Hfa] 2 puffs IH BID 01/04/22 [History] Aspirin EC 81 mg [Ecotrin 81 mg] 81 mg PO DAILY 01/04/22 [History] Cetirizine HCl [All Day Allergy Relief] 1 cap PO UD 01/04/22 [History] Cholecalciferol (Vitamin D3) [Vitamin D] 1 tab PO WEEKLY 01/04/22 [History] Cyanocobalamin/Cobamamide [Vitamin B-12 5,000 Mcg Tab Sl] 1 tab SL DAILY 01/04/22 [History] Fluticasone/Umeclidin/Vilanter [Trelegy Ellipta 100-62.5-25] 1 blist IH DAILY 01/04/22 [History] Levothyroxine Sodium [Tirosint] 225 mcg PO DAILY 01/04/22 [History] Loratadine/Pseudoephedrine [Allergy Relief D-24Hr Tablet] 1 cap PO DAILY 01/04/22 [History] Melatonin 2 tab SL HS 01/04/22 [History] Omeprazole 10 mg PO DAILY 01/04/22 [History] Pravastatin Sodium 20 mg PO DAILY 01/04/22 [History] diphenhydrAMINE HCL [Sleep Aid] 1 cap PO UD 01/04/22 [History] Lisinopril 5 mg [Zestril 5 MG] 5 mg PO DAILY 07/17/22 [History] Hx Tetanus, Diphtheria Vaccination/Date Given: Yes Hx Influenza Vaccination/Date Given: No Hx Pneumococcal Vaccination/Date Given: No Immunizations Up to Date: Yes Travel Risk - International Travel Have you traveled outside of the country in past 3 weeks: No - Coronavirus Screening Are you exhibiting any of the following symptoms?: Yes Symptoms: Cough: New Onset, Headaches/Body Aches/Fatigue Close contact with a COVID-19 positive Pt in past 14-21 Days: No - Vaccine Status Have you recieved a Covid-19 vaccination: No - Review of Systems Constitutional: No Symptoms Eyes: No Symptoms Ears, Nose, & Throat: Nose Congestion, Throat Pain Respiratory: Cough Cardiac: No Symptoms Abdominal/Gastrointestinal: No Symptoms Genitourinary Symptoms: No Symptoms Musculoskeletal: Myalgias Skin: No Symptoms Neurological: No Symptoms Endocrine: No Symptoms Hematologic/Lymphatic: No Symptoms - Past Medical History Pertinent Past Medical History: Yes Neurological History: Migraines ENT History: No Pertinent History Cardiac History: Arrhythmia, Peripheral Vascular Disease Respiratory History: Sleep Apnea, Other, COPD, Asthma, Bronchitis Endocrine Medical History: No Pertinent History Musculoskeletal History: Osteoarthritis GI Medical History: GERD, Gallbladder Disease History: No Pertinent History Psycho-Social History: Depression, Anxiety Female Reproductive Disorders: No Pertinent History Other Medical History: Covid in August 2021 - Past Surgical History Past Surgical History: Yes Neuro Surgical History: No Pertinent History Cardiac: Other Respiratory: No Pertinent History Gastrointestinal: Cholecystectomy Genitourinary: No Pertinent History Musculoskeletal: No Pertinent History Female Surgical History: Other Other Surgical History: thyroid removed with "radioactive iodine pill". peripheral artery. vaginal dysplasia surgery - Social History Smoking Status: Former smoker Exposure to second hand smoke: Yes Drug Use: none Patient Lives Alone: Yes Significant Family History: no pertinent family hx - Nursing Vital Signs Nursing Vital Signs: Initial Vital Signs Temperature 98.2 F 01/22/23 23:51 Pulse Rate 90 01/22/23 23:51 Respiratory Rate 20 01/22/23 23:51 Blood Pressure 128/77 01/22/23 23:51 O2 Sat by Pulse Oximetry 95 01/22/23 23:51 Pain Scale Pain Intensity 0 - Physical Exam General Appearance: no apparent distress, alert Eye Exam: PERRL/EOMI Ears, Nose, Throat Exam: moist mucous membranes, pharyngeal erythema Neck Exam: normal inspection, non-tender, supple, full range of motion Respiratory Exam: normal breath sounds, lungs clear Cardiovascular Exam: regular rate/rhythm, normal heart sounds Back Exam: normal inspection Extremity Exam: normal inspection, normal range of motion Neurologic Exam: alert, oriented x 3, cooperative Skin Exam: normal color SpO2 Interpretation: normal SpO2: 97 O2 Delivery: Room Air Ordered Tests: Active Orders 24 hr Category Date Time Status CHEST 1 VIEW (PORTABLE) Stat Exams 01/22/23 23:57 Taken Medication Summary Discontinued Medications Generic Name Dose Route Start Last Admin Trade Name Chaim PRN Reason Stop Dose Admin Prednisone 60 mg 01/23/23 00:53 01/23/23 00:56 Prednisone 20 Mg Tablet PO 01/23/23 00:54 60 mg STAT ONE Administration Prednisone Confirm 01/23/23 00:55 Prednisone 20 Mg Tablet Administered 01/23/23 00:56 Dose 60 mg .ROUTE .STK-MED ONE Lab/Rad Data: Laboratory Results 01/22/23 Range/Units 00:17 Influenza Type A Ag NEGATIVE (NEGATIVE) Influenza Type B Ag NEGATIVE (NEGATIVE) RSV (PCR) POSITIVE (NEGATIVE) SARS-CoV-2 (PCR) NEGATIVE (NEGATIVE) Group A Strep Antibody NOT DETECTED (NEGATIVE) - Progress Progress: unchanged Air Movement: good Progress Note: 01/23/23 01:10 52 years old is evaluated in the ER for flulike symptoms for 1 week. Patient is afebrile. Lungs are bilateral clear to auscultation. No sinus tenderness. Patient is maintaining oxygen saturation around 97% on room air. No tachypnea or tachycardia. I have obtained x-rays which are negative for acute cardiopulmonary findings. Obtain COVID flu and RSV/strep which are negative except for RSV. I believe patient has viral URI with cough and congestion. I would give her a short course of steroid as she has a history of COPD as well and recommended continue with inhalers which she has at home. Outpatient follow-up recommended. Discussed signs symptoms of worsening needing return to ER which she seems understanding. Stable for discharge. 01/23/23 01:00 Blood Culture(s) Obtained: No Antibiotics given: No Counseled pt/family regarding: lab results, diagnosis, need for follow-up, rad results Medical Desision Making - Diagnostic Testing Diagnostic test were ordered, analyzed, and reviewed by me: Yes Radiological Interpretation: Interpreted by me, Reviewed by me - Risk of complications The pt has a mod risk of morbidity or mortality based on: Need for prescription drug management - Departure Departure Disposition: Home Clinical Impression: Viral upper respiratory tract infection with cough, RSV bronchitis Condition: Stable Critical Care Time: No Referrals: LEE TORO MD [Primary Care Provider] - Follow up with PCP 1 day Instructions: Viral Upper Respiratory Infection, Adult (DC), Respiratory Syncytial Virus, Adult (DC) Additional Instructions: Continue with your current inhalers. Follow-up with primary care for reevaluation. Take Tylenol as needed. Return to ER for any worsening. Prescriptions: Prednisone 20 mg [Deltasone 20 mg] 60 mg PO DAILY 5 Days #15 tablet
[2023-01-23 00:55] LABS: INFLUENZA A NEGATIVE (NEGATIVE); INFLUENZA B NEGATIVE (NEGATIVE); SARS-CoV-2 Xpert Express NEGATIVE (NEGATIVE)
[2023-01-23] MEDS ORDERED: DELTASONE 20 MG ONE (00:55)
[2023-01-23 00:58] LABS: RESPIRATORY SYNCTIAL VIRUS POSITIVE (NEGATIVE)
[2023-01-23 01:12] VITALS: BP 121/65; PULSE 82
--- NOTE | 2023-01-23 08:44 | XRAY ---
Indication: Cough. Comparison: April 09, 2022 Portable apical lordotic chest again demonstrates normal heart and lungs. Bony thorax intact again with mild degenerative changes. No new/acute findings.
== END 2023-01-23 01:22 | disposition home or self-care (01) ==
LOC: ED 23:33
DX: J06.9 Acute upper respiratory infection, unspecified (principal); J20.5 Acute bronchitis due to respiratory syncytial virus; R05.1 Acute cough; R09.81 Nasal congestion; Z79.52 Long term (current) use of systemic steroids; Z79.899 Other long term (current) drug therapy; Z28.310 Unvaccinated for COVID-19; Z86.16 Personal history of COVID-19
CPT/HCPCS: 0241U; 71045; 87651; 99283; A9270-GY

== ENCOUNTER 2023-02-01 14:01 | Emergency (ER) | payer OTHER ==
[2023-02-01 14:26] VITALS: TEMP 97.2
--- NOTE | 2023-02-01 14:35 | ERPHSYRPT ---
- History of Present Illness Time Seen by Provider: 02/01/23 14:30 Source: patient Exam Limitations: no limitations Patient Subjective Stated Complaint: pt here for cough,sore throat and dizziness today, she was dx with RSV a week ago. she was has been out of medications for 2 weeks until yesterday Triage Nursing Assessment: pt alert,talkative, walked in, resp easy, occ cough, states incont of urnie due to cough, Physician History: This is a morbidly obese 52-year-old white female patient seen here on 01/22/2003 with similar symptoms except for the patient is dizzy today. Patient has persistent cough and a sore throat. Patient was diagnosed with RSV infection on 01/22/2023. Patient specifically states she took all her medications today. Patient has a history of hypertension, hyperlipidemia, hypothyroidism, g astroesophageal reflux disease, COPD, bronchitis, peripheral vascular disease and arrhythmias. Patient denies chest pain. Patient denies shortness of breath. Her room air oxygen saturation levels 96%. Timing/Duration: day(s) (10) Cough Quality/Degree: mild Possible Cause: occasional episodes Modifying Factors: Improves With: coughing Associated Symptoms: cough, dizziness, No fever, No chest pain/soreness, No shortness of breath, No sore throat Allergies/Adverse Reactions: blue dye Allergy (Verified 02/01/23 14:16) levothyroxine sodium [From Synthroid] Allergy (Verified 02/01/23 14:16) Home Medications: PARoxetine HCL [Paroxetine HCl] 40 mg PO DAILY 10/25/18 [History] Oxybutynin Chloride Xl 5 mg [Ditropan XL 5 MG] 15 mg PO DAILY 04/18/20 [History] Albuterol Sulfate [Albuterol Sulfate Hfa] 2 puffs IH BID 01/04/22 [History] Aspirin EC 81 mg [Ecotrin 81 mg] 81 mg PO DAILY 01/04/22 [History] Cetirizine HCl [All Day Allergy Relief] 1 cap PO UD 01/04/22 [History] Cholecalciferol (Vitamin D3) [Vitamin D] 1 tab PO WEEKLY 01/04/22 [History] Cyanocobalamin/Cobamamide [Vitamin B-12 5,000 Mcg Tab Sl] 1 tab SL DAILY 01/04/22 [History] Fluticasone/Umeclidin/Vilanter [Trelegy Ellipta 100-62.5-25] 1 blist IH DAILY 01/04/22 [History] Levothyroxine Sodium [Tirosint] 175 mcg PO DAILY 01/04/22 [History] Loratadine/Pseudoephedrine [Allergy Relief D-24Hr Tablet] 1 cap PO DAILY 01/04/22 [History] Melatonin 2 tab SL HS 01/04/22 [History] Omeprazole 10 mg PO DAILY 01/04/22 [History] Pravastatin Sodium 20 mg PO DAILY 01/04/22 [History] diphenhydrAMINE HCL [Sleep Aid] 1 cap PO UD 01/04/22 [History] Lisinopril 5 mg [Zestril 5 MG] 5 mg PO DAILY 07/17/22 [History] Hx Tetanus, Diphtheria Vaccination/Date Given: Yes Hx Influenza Vaccination/Date Given: No Hx Pneumococcal Vaccination/Date Given: No Immunizations Up to Date: Yes Travel Risk - International Travel Have you traveled outside of the country in past 3 weeks: No - Coronavirus Screening Are you exhibiting any of the following symptoms?: Yes Symptoms: Cough: New Onset, Shortness of Breath - Vaccine Status Have you recieved a Covid-19 vaccination: No - Review of Systems Constitutional: No Symptoms Eyes: No Symptoms Ears, Nose, & Throat: Nose Congestion Respiratory: Cough Cardiac: No Symptoms Abdominal/Gastrointestinal: No Symptoms Genitourinary Symptoms: No Symptoms Musculoskeletal: No Symptoms Skin: No Symptoms Neurological: Dizziness Psychological: No Symptoms Endocrine: No Symptoms Hematologic/Lymphatic: No Symptoms Immunological/Allergic: No Symptoms All Other Systems: Reviewed and Negative - Past Medical History Pertinent Past Medical History: Yes Neurological History: Migraines ENT History: No Pertinent History Cardiac History: Arrhythmia, Peripheral Vascular Disease Respiratory History: Sleep Apnea, Other, COPD, Asthma, Bronchitis Endocrine Medical History: No Pertinent History Musculoskeletal History: Osteoarthritis GI Medical History: GERD, Gallbladder Disease History: No Pertinent History Psycho-Social History: Depression, Anxiety Female Reproductive Disorders: No Pertinent History Other Medical History: Covid in August 2021 - Past Surgical History Past Surgical History: Yes Neuro Surgical History: No Pertinent History Cardiac: Other Respiratory: No Pertinent History Gastrointestinal: Cholecystectomy Genitourinary: No Pertinent History Musculoskeletal: No Pertinent History Female Surgical History: Other Other Surgical History: thyroid removed with "radioactive iodine pill". per ipheral artery. vaginal dysplasia surgery - Social History Smoking Status: Former smoker Exposure to second hand smoke: Yes Drug Use: none Patient Lives Alone: Yes Significant Family History: no pertinent family hx - Nursing Vital Signs Nursing Vital Signs: Initial Vital Signs Temperature 97.2 F 02/01/23 14:25 Pulse Rate 86 02/01/23 14:25 Respiratory Rate 18 02/01/23 14:25 Blood Pressure 105/85 02/01/23 14:25 O2 Sat by Pulse Oximetry 94 L 02/01/23 14:25 Pain Scale Pain Intensity 0 - Physical Exam General Appearance: no apparent distress, alert, anxiety, obese Eye Exam: PERRL/EOMI, eyes nml inspection Ears, Nose, Throat Exam: normal ENT inspection, moist mucous membranes Neck Exam: normal inspection, non-tender, supple, full range of motion Respiratory Exam: normal breath sounds, lungs clear, airway intact, No chest tenderness, No respiratory distress Cardiovascular Exam: regular rate/rhythm, normal heart sounds, normal peripheral pulses Gastrointestinal/Abdomen Exam: soft, normal bowel sounds, No tenderness Pelvic Exam: not done Rectal Exam: not done Back Exam: normal inspection, normal range of motion, No CVA tenderness, No vertebral tenderness Extremity Exam: normal inspection, normal range of motion, pelvis stable Neurologic Exam: alert, oriented x 3, cooperative, inside sales II-XII nml as tested, normal mood/affect, nml cerebellar function, nml station & gait, sensation nml Skin Exam: normal color, warm, dry Lymphatic Exam: No adenopathy SpO2 Interpretation: normal SpO2: 95 O2 Delivery: Room Air - Course Nursing assessment & vital signs reviewed: Yes Ordered Tests: Active Orders 24 hr Category Date Time Status [employer] Worker STAT Care 02/01/23 14:36 Active EKG-ER Only STAT Care 02/01/23 14:35 Active IV Insertion STAT Care 02/01/23 14:35 Active CHEST 1 VIEW (PORTABLE) Stat Exams 02/01/23 14:35 Completed HEAD WITHOUT CONTRAST [CT] Stat Exams 02/01/23 14:35 Completed BLOOD CULTURE Stat Lab 02/01/23 15:06 Received CBC W DIFF Stat Lab 02/01/23 15:00 Completed CMP Stat Lab 12/13/23 15:00 Completed CULTURE,URINE Stat Lab 02/01/23 15:10 Received MONO SCREEN Stat Lab 02/01/23 15:00 Completed T4 (Thyroxine) Stat Lab 02/01/23 15:00 Completed TSH, 3RD Generation Stat Lab 02/01/23 15:00 Completed UA W/RFX UR CULTURE Stat Lab 02/01/23 15:10 Completed Lab/Rad Data: Laboratory Result Diagrams 02/01/23 15:00 02/01/23 15:00 Laboratory Results 02/01/23 02/01/23 02/01/23 Range/Units 15:10 15:00 15:00 WBC (4.0-10.5) x10^3/uL RBC (4.1-5.4) x10^6/uL Hgb (12.0-16.0) g/dL Hct (35-47) % MCV (78-100) fL MCH (26-32) pg MCHC (32-36) g/dL RDW (11.5-14.0) % Plt Count (150-450) x10^3/uL MPV (7.5-11.0) fL Gran % (36.0-66.0) % Immature Gran % (Auto) (0.00-0.4) % Nucleat RBC Rel Count (0.00-0.1) % Eos # (Auto) (0-0.5) x10^3/uL Immature Gran # (Auto) (0.00-0.03) x10^3u/L Absolute Lymphs (auto) (1.0-4.6) x10^3/uL Absolute Monos (auto) (0.0-1.3) x10^3/uL Absolute Nucleated RBC (0.00-0.01) x10^3u/L Lymphocytes % (24.0-44.0) % Monocytes % (0.0-12.0) % Eosinophils % (0.00-5.0) % Basophils % (0.0-0.4) % Absolute Granulocytes (1.4-6.9) x10^3/uL Basophils # (0-0.4) x10^3/uL Sodium (137-145) mmol/L Potassium (3.5-5.1) mmol/L Chloride (98-107) mmol/L Carbon Dioxide (22-30) mmol/L Anion Gap (5-15) MEQ/L BUN (7-17) mg/dL Creatinine (0.52-1.04) mg/dL Estimated GFR ML/MIN Glucose (74-106) mg/dL Calcium (8.4-10.2) mg/dL Total Bilirubin (0.2-1.3) mg/dL AST (14-36) U/L ALT (0-35) U/L Alkaline Phosphatase (38-126) U/L Serum Total Protein (6.3-8.2) g/dL Albumin (3.5-5.0) g/dL Thyroxine (T4) (5.53-10.96) ug/dL TSH 3rd Generation (0.47-4.68) mIU/L Urine Color Yellow (Yellow) Urine Appearance Clear (Clear) Urine pH 7.0 (4.6-8.0) Ur Specific [place] <=1.005 (1.005-1.030) Urine Protein Negative (Negative) Urine Glucose (UA) Negative (Negative) mg/dL Urine Ketones Negative (Negative) Urine Blood Moderate A (Negative) Urine Nitrite Negative (Negative) Urine Bilirubin Negative (Negative) Urine Urobilinogen 0.2 (0.2) mg/dL Ur Leukocyte Esterase Small A (Negative) U Hyaline Cast (Auto) NONE SEEN (0-2) /LPF Urine Microscopic RBC 11-20 A (0-5) /HPF Urine Microscopic WBC 6-10 A (0-5) /HPF Ur Epithelial Cells Few (None Seen) /HPF Urine Bacteria Rare A (None Seen) /HPF Urine Culture Reflexed YES (NO) Monoscreen NEGATIVE (NEGATIVE) Influenza Type A Ag NEGATIVE (NEGATIVE) Influenza Type B Ag NEGATIVE (NEGATIVE) RSV (PCR) NEGATIVE (NEGATIVE) SARS-CoV-2 (PCR) NEGATIVE (NEGATIVE) Group A Strep Antibody (NEGATIVE) 02/01/23 02/01/23 02/01/23 Range/Units 15:00 15:00 15:00 WBC 11.4 H (4.0-10.5) x10^3/uL RBC 4.32 (4.1-5.4) x10^6/uL Hgb 12.8 (12.0-16.0) g/dL Hct 40.7 (35-47) % MCV 94.2 (78-100) fL MCH 29.6 (26-32) pg MCHC 31.4 L (32-36) g/dL RDW 13.0 (11.5-14.0) % Plt Count 382 (150-450) x10^3/uL MPV 9.4 (7.5-11.0) fL Gran % 67.5 H (36.0-66.0) % Immature Gran % (Auto) 0.7 H (0.00-0.4) % Nucleat RBC Rel Count 0.0 (0.00-0.1) % Eos # (Auto) 0.22 (0-0.5) x10^3/uL Immature Gran # (Auto) 0.08 H (0.00-0.03) x10^3u/L Absolute Lymphs (auto) 2.33 (1.0-4.6) x10^3/uL Absolute Monos (auto) 1.02 (0.0-1.3) x10^3/uL Absolute Nucleated RBC 0.00 (0.00-0.01) x10^3u/L Lymphocytes % 20.5 L (24.0-44.0) % Monocytes % 9.0 (0.0-12.0) % Eosinophils % 1.9 (0.00-5.0) % Basophils % 0.4 (0.0-0.4) % Absolute Granulocytes 7.70 H (1.4-6.9) x10^3/uL Basophils # 0.04 (0-0.4) x10^3/uL Sodium 134 L (137-145) mmol/L Potassium 4.1 (3.5-5.1) mmol/L Chloride 100 (98-107) mmol/L Carbon Dioxide 26 (22-30) mmol/L Anion Gap 11.9 (5-15) MEQ/L BUN 11 (7-17) mg/dL Creatinine 0.84 (0.52-1.04) mg/dL Estimated GFR 83.6 ML/MIN Glucose 78 (74-106) mg/dL Calcium 9.1 (8.4-10.2) mg/dL Total Bilirubin 0.40 (0.2-1.3) mg/dL AST 32 (14-36) U/L ALT 17 (0-35) U/L Alkaline Phosphatase 70 (38-126) U/L Serum Total Protein 7.5 (6.3-8.2) g/dL Albumin 4.2 (3.5-5.0) g/dL Thyroxine (T4) 4.83 L (5.53-10.96) ug/dL TSH 3rd Generation 7.460 H (0.47-4.68) mIU/L Urine Color (Yellow) Urine Appearance (Clear) Urine pH (4.6-8.0) Ur Specific [place] (1.005-1.030) Urine Protein (Negative) Urine Glucose (UA) (Negative) mg/dL Urine Ketones (Negative) Urine Blood (Negative) Urine Nitrite (Negative) Urine Bilirubin (Negative) Urine Urobilinogen (0.2) mg/dL Ur Leukocyte Esterase (Negative) U Hyaline Cast (Auto) (0-2) /LPF Urine Microscopic RBC (0-5) /HPF Urine Microscopic WBC (0-5) /HPF Ur Epithelial Cells (None Seen) /HPF Urine Bacteria (None Seen) /HPF Urine Culture Reflexed (NO) Monoscreen (NEGATIVE) Influenza Type A Ag (NEGATIVE) Influenza Type B Ag (NEGATIVE) RSV (PCR) (NEGATIVE) SARS-CoV-2 (PCR) (NEGATIVE) Group A Strep Antibody NOT DETECTED (NEGATIVE) - Progress Progress: improved, re-examined Air Movement: good Progress Note: 02/01/23 15:00 This patient's medical issue is 1 of moderate complexity. The level complex in the workup performed is based on review of the patient's past medical history, review the patient's medication list, review the patient's drug allergy list, history present illness and physical findings on examination. This patient's workup includes placement of intravenous line, urinalysis, CBC, CMP, twelve-lead EKG, T4 and TSH levels as well as a CT scan of the head without contrast. Will also repeat her viral studies. 02/01/23 16:34 CT scan of the head without contrast was interpreted by the radiologist and I reviewed the impression. There is a nonacute senile brain with remote, stable subcentimeter infarct right centrum semiovale. These findings were discussed with the patient. Chest x-ray was interpreted by the radiologist and I reviewed the impression. There are no new, acute findings on today's chest x-ray. These findings were discussed with the patient 12/13/23 16:36 I reviewed and interpreted the patient's laboratory results. The patient does have a urinary tract infection. She also has some abnormalities in her T4 and TSH levels. Will provide her with a dose of oral antibiotic and then discharge her to home where she will follow-up with her primary care provider tomorrow by phone to make an outpatient follow-up appointment to discuss treatment of her thyroid issue. Blood Culture(s) Obtained: Yes Antibiotics given: Yes Counseled pt/family regarding: lab results, diagnosis, need for follow-up, rad results - Departure Departure Disposition: Home Clinical Impression: UTI (urinary tract infection), Primary hypothyroidism Condition: Stable Critical Care Time: No Referrals: LEE TORO MD [Primary Care Provider] - Follow up/PCP as directed Additional Instructions: Drink plenty fluids. Take all your medications as prescribed. Call your primary care provider tomorrow morning, 02/02/2023 to make arrangements for follow-up appointment to discuss your thyroid medication. Prescriptions: Ciprofloxacin [Cipro 500 MG] 500 mg PO BID #14 tablet
[2023-02-01 15:15] LABS: BASOPHIL % 0.4 % (0.0-0.4); Basophil (Absolute #) 0.04 x10^3/uL (0-0.4); Eosinophil % 1.9 % (0.00-5.0); Eosinophil (Absolute #) 0.22 x10^3/uL (0-0.5); Hematocrit 40.7 % (35-47); Hemoglobin 12.8 g/dL (12.0-16.0); IMMATURE GRAN # 0.08 x10^3u/L (0.00-0.03); IMMATURE GRAN % 0.7 % (0.00-0.4); Lymphocyte (Absolute #) 2.33 x10^3/uL (1.0-4.6); Lymphocytes % 20.5 % (24.0-44.0); Mean Cell Volume 94.2 fL (78-100); Mean Corpuscular Hemoglobin 29.6 pg (26-32); Mean Corpuscular Hgb Concent. 31.4 g/dL (32-36); Mean Platelet Volume 9.4 fL (7.5-11.0); Monocyte (Absolute #) 1.02 x10^3/uL (0.0-1.3); Neutrophil % 67.5 % (36.0-66.0); Platelet Count 382 x10^3/uL (150-450); Red Blood Count 4.32 x10^6/uL (4.1-5.4); White Blood Count 11.4 x10^3/uL (4.0-10.5)
[2023-02-01 15:20] LABS: Appearance Clear (Clear); Bacteria Rare /HPF (None Seen); Bilirubin Negative (Negative); Blood Moderate (Negative); Epithelial Cells Few /HPF (None Seen); Glucose, Urine Negative (Negative); Hyaline Casts NONE SEEN /LPF (0-2); Ketones Negative (Negative); Leukocyte Esterase Small (Negative); Nitrite Negative (Negative); Protein,Urine Dip Negative (Negative); Specific Gravity <=1.005 (1.005-1.030); Urobilinogen 0.2 mg/dL (0.2)
[2023-02-01 15:21] LABS: ADD URINE CULTURE? YES (NO)
[2023-02-01 15:58] LABS: INFLUENZA A NEGATIVE (NEGATIVE); INFLUENZA B NEGATIVE (NEGATIVE); RESPIRATORY SYNCTIAL VIRUS NEGATIVE (NEGATIVE); SARS-CoV-2 Xpert Express NEGATIVE (NEGATIVE)
[2023-02-01 16:00] LABS: ALBUMIN 4.2 g/dL (3.5-5.0); ANION GAP 11.9 MEQ/L (5-15); BILIRUBIN,TOTAL 0.4 mg/dL (0.2-1.3); Calcium 9.1 mg/dL (8.4-10.2); Creatinine 1 0.84 mg/dL (0.52-1.04); EST GLOMERULAR FILTRATION RATE 83.6 ML/MIN; Potassium 4.1 mmol/L (3.5-5.1); T4 (Thyroxine) 4.83 ug/dL (5.53-10.96); TSH, 3RD Generation 7.46 mIU/L (0.47-4.68); Total Protein 7.5 g/dL (6.3-8.2)
--- NOTE | 2023-02-01 16:19 | XRAY ---
Indication: Dizziness. Multiple contiguous axial images obtained without contrast. Comparison: September 17, 2021 Again age-appropriate global atrophy, minimal periventricular degenerative micro-ischemia bilaterally and subcentimeter remote infarct right posterior centrum semiovale. No acute intracranial hemorrhage, abnormal extra-axial fluid collection, or mass effect. Fourth ventricle is midline without hydrocephalus. Bony calvarium intact. Paranasal sinuses demonstrates new tiny fluid leveling both maxillary sinuses. Mastoid air cells remain clear.. 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 Incidental paranasal sinus disease.
--- NOTE | 2023-02-01 16:21 | XRAY ---
Indication: Cough and congestion. Comparison: January 22, 2023 Portable apical lordotic chest again demonstrates normal heart and lungs. Bony thorax intact again with mild degenerative changes. No new/acute findings.
[2023-02-01 16:35] VITALS: O2SAT 95
[2023-02-01] MEDS ORDERED: Levofloxacin 500 MG Tablet PO ONE (16:38)
[2023-02-01 16:39] VITALS: BP 89/43; PULSE 120; RESP 14
[2023-02-01] MEDS ORDERED: Levofloxacin 500 MG Tablet ONE (16:41)
== END 2023-02-01 16:50 | disposition home or self-care (01) ==
LOC: ED 14:01
DX: N39.0 Urinary tract infection, site not specified (principal); E03.9 Hypothyroidism, unspecified; R42 Dizziness and giddiness; R05.3 Chronic cough; J02.9 Acute pharyngitis, unspecified; I10 Essential (primary) hypertension; E78.5 Hyperlipidemia, unspecified; Z79.899 Other long term (current) drug therapy; Z28.310 Unvaccinated for COVID-19; Z86.16 Personal history of COVID-19; Z63.0 Problems in relationship with spouse or partner
CPT/HCPCS: 0241U; 36415; 70450; 71045; 80053; 81001; 84436; 84443; 85025; 86308; 87040; 87077; 87086; 87186; 87651; 93005; 93041; 99284; A9270-GY

== ENCOUNTER 2023-02-07 08:18 | Emergency (ER) | payer OTHER ==
[2023-02-07 08:25] VITALS: TEMP 98.1
[2023-02-07] MEDS ORDERED: DECADRON 10MG INJ. IV ONE (08:44)
--- NOTE | 2023-02-07 08:44 | ERPHSYRPT ---
- History of Present Illness Time Seen by Provider: 02/07/23 08:30 Source: patient Exam Limitations: no limitations Patient Subjective Stated Complaint: PT states "I as diagnosed with a URI three weeks ago and a UTI and my throat still hurts. I have a Dr. Boswell on but I thought I would come back." Triage Nursing Assessment: PT presented alert and oriented X3, skin pwd. PT ambulates with an upright steady gait, pt able to speak in clear full sentences. PT speaking quite a bit and not letting rn ask questions due to speaking so much. Physician History: Patient 52-year-old female presents to our ED for evaluation of a sore throat and hoarse voice for a week. Patient just completed a course of clindamycin reportedly to treat a URI and UTI. Patient's last dose of clindamycin was yesterday. Patient has no other complaints. No chest pain or shortness of breath. No nausea vomiting or diaphoresis. No difficulty eating or swallowing. Patient currently sipping on soda pop. Symptoms are mild to moderate in intensity. No specific worsening or improving factors. Patient otherwise feels well. She voices no other complaints or concerns at this time. Portions of this note were created with voice recognition technology. There may be grammatical, spelling, punctuation or sound alike errors Timing/Duration: week(s) Severity: moderate Modifying Factors: Improves With: nothing Associated Symptoms: denies symptoms Allergies/Adverse Reactions: blue dye Allergy (Verified 02/01/23 14:16) levothyroxine sodium [From Synthroid] Allergy (Verified 02/01/23 14:16) Home Medications: PARoxetine HCL [Paroxetine HCl] 40 mg PO DAILY 10/25/18 [History] Oxybutynin Chloride Xl 5 mg [Ditropan XL 5 MG] 15 mg PO DAILY 04/18/20 [History] Albuterol Sulfate [Albuterol Sulfate Hfa] 2 puffs IH BID 01/04/22 [History] Aspirin EC 81 mg [Ecotrin 81 mg] 81 mg PO DAILY 01/04/22 [History] Cetirizine HCl [All Day Allergy Relief] 1 cap PO UD 01/04/22 [History] Cholecalciferol (Vitamin D3) [Vitamin D] 1 tab PO WEEKLY 01/04/22 [History] Cyanocobalamin/Cobamamide [Vitamin B-12 5,000 Mcg Tab Sl] 1 tab SL DAILY 01/04/22 [History] Fluticasone/Umeclidin/Vilanter [Trelegy Ellipta 100-62.5-25] 1 blist IH DAILY 01/04/22 [History] Levothyroxine Sodium [Tirosint] 175 mcg PO DAILY 01/04/22 [History] Loratadine/Pseudoephedrine [Allergy Relief D-24Hr Tablet] 1 cap PO DAILY 01/04/22 [History] Melatonin 2 tab SL HS 01/04/22 [History] Omeprazole 10 mg PO DAILY 01/04/22 [History] Pravastatin Sodium 20 mg PO DAILY 01/04/22 [History] diphenhydrAMINE HCL [Sleep Aid] 1 cap PO UD 01/04/22 [History] Lisinopril 5 mg [Zestril 5 MG] 5 mg PO DAILY 07/17/22 [History] Hx Tetanus, Diphtheria Vaccination/Date Given: Yes Hx Influenza Vaccination/Date Given: No Hx Pneumococcal Vaccination/Date Given: No Immunizations Up to Date: Yes Travel Risk - International Travel Have you traveled outside of the country in past 3 weeks: No - Coronavirus Screening Are you exhibiting any of the following symptoms?: Yes Symptoms: Cough: New Onset Close contact with a COVID-19 positive Pt in past 14-21 Days: No - Vaccine Status Have you recieved a Covid-19 vaccination: No - Review of Systems Constitutional: No Symptoms, No Fever, No Chills Eyes: No Symptoms Ears, Nose, & Throat: No Symptoms Respiratory: No Symptoms, No Cough, No Dyspnea Cardiac: No Symptoms, No Chest Pain, No Edema, No Syncope Abdominal/Gastrointestinal: No Symptoms, No Abdominal Pain, No Nausea, No Vomiting, No Diarrhea Genitourinary Symptoms: No Symptoms, No Dysuria Musculoskeletal: No Symptoms, No Back Pain, No Neck Pain Skin: No Symptoms, No Rash Neurological: No Symptoms, No Dizziness, No Focal Weakness, No Sensory Changes Psychological: No Symptoms Endocrine: No Symptoms Hematologic/Lymphatic: No Symptoms Immunological/Allergic: No Symptoms All Other Systems: Reviewed and Negative - Past Medical History Pertinent Past Medical History: Yes Neurological History: Migraines ENT History: No Pertinent History Cardiac History: Arrhythmia, Peripheral Vascular Disease Respiratory History: Sleep Apnea, Other, COPD, Asthma, Bronchitis Endocrine Medical History: No Pertinent History Musculoskeletal History: Osteoarthritis GI Medical History: GERD, Gallbladder Disease History: No Pertinent History Psycho-Social History: Depression, Anxiety Female Reproductive Disorders: No Pertinent History Other Medical History: Covid in August 2021 - Past Surgical History Past Surgical History: Yes Neuro Surgical History: No Pertinent History Cardiac: Other Respiratory: No Pertinent History Gastrointestinal: Cholecystectomy Genitourinary: No Pertinent History Musculoskeletal: No Pertinent History Female Surgical History: Other Other Surgical History: thyroid removed with "radioactive iodine pill". peripheral artery. vaginal dysplasia surgery - Social History Smoking Status: Former smoker Exposure to second hand smoke: Yes Drug Use: none Patient Lives Alone: Yes Significant Family History: no pertinent family hx - Nursing Vital Signs Nursing Vital Signs: Initial Vital Signs Temperature 98.1 F 02/07/23 08:20 Pulse Rate 95 H 02/07/23 08:20 Respiratory Rate 20 02/07/23 08:20 Blood Pressure 158/94 02/07/23 08:20 O2 Sat by Pulse Oximetry 98 02/07/23 08:20 Pain Scale Pain Intensity 2 - Physical Exam General Appearance: no apparent distress, alert Eye Exam: PERRL/EOMI, eyes nml inspection Ears, Nose, Throat Exam: normal ENT inspection, TMs normal, pharynx normal, moist mucous membranes, other (Normal oropharyngeal exam. No cervical lymphadenopathy. No neck pain. No photophobia. No meningeal signs) Neck Exam: normal inspection, non-tender, supple, full range of motion Respiratory Exam: normal breath sounds, lungs clear, airway intact, No respiratory distress Cardiovascular Exam: regular rate/rhythm, normal heart sounds, normal peripheral pulses Gastrointestinal/Abdomen Exam: soft, normal bowel sounds, No tenderness, No mass Back Exam: normal inspection, normal range of motion, No CVA tenderness, No vertebral tenderness Extremity Exam: normal inspection, normal range of motion, pelvis stable Neurologic Exam: alert, oriented x 3, cooperative, normal mood/affect, sensation nml, No motor deficits Skin Exam: normal color, warm, dry, No rash Lymphatic Exam: No adenopathy SpO2 Interpretation: normal SpO2: 98 O2 Delivery: Room Air - Course Nursing assessment & vital signs reviewed: Yes Ordered Tests: Medication Summary Discontinued Medications Generic Name Dose Route Start Last Admin Trade Name Freq PRN Reason Stop Dose Admin Dexamethasone Sodium Phosphate 6 mg 02/07/23 08:44 Dexamethasone Sod Phosphate 10 Mg/Ml IV 02/07/23 08:45 STAT ONE - Progress Progress: improved Progress Note: 52-year-old female presents to our ED for evaluation of a sore throat and hoarse voice. Oropharyngeal exam within normal limits. Patient completed a course of clindamycin yesterday. Patient's physical exam is not remarkable. Vitals are within normal limits. Patient received a dose of Decadron to address her sore throat and laryngitis. Patient has a follow-up appointment with her primary care doctor on in 2 days. Patient will follow-up for reassessment. Patient otherwise feels well. She voices no other complaints or concerns at this time. Will discharge home. Portions of this note were created with voice recognition technology. There may be grammatical, spelling, punctuation or sound alike errors Complexity problem addressed is moderate acute complicated No critical care time Complex of data reviewed and analyzed is none. Diagnosis made based on history and physical exam. No specialized testing ordered Risk of complication and or risk of morbidity/mortality of patient management is moderate. Patient received a dose of Decadron in our ED. Decadron is a long-acting steroid which should treat her symptoms at least until her primary care follow-up in 2 days Vital stable. Time spent to discharge patient is approximately 10 minutes. Plan of care established for shared decision making. No social determinants of health present impede follow-up. Portions of this note were created with voice recognition technology. There may be grammatical, spelling, punctuation or sound alike errors 02/07/23 08:48 Counseled pt/family regarding: diagnosis, need for follow-up - Departure Departure Disposition: Home Clinical Impression: Laryngitis, Sore throat Condition: Stable Critical Care Time: No Referrals: LEE TORO MD [Primary Care Provider] - Follow up/PCP as directed Additional Instructions: Discharge/Care Plan ABHIJIT HERNANDEZ was seen on 02/07/23 in the Emergency Room. The patient was counseled regarding Diagnosis,Lab results, Imaging studies, need for follow up and when to return to the Emergency Room. Prescriptions given: Discharge Note I have spoken with the patient and/or caregivers. I have explained the patient's condition, diagnosis and treatment plan based on the information available to me at this time. I have answered the patient's and/or caregiver's questions and addressed any concerns. The patient and/or caregivers have as good understanding of the patient's diagnosis, condition and treatment plan as can be expected at this point. The vital signs have been stable. The patient's condition is stable and appropriate for discharge from the emergency department. The patient will pursue further outpatient evaluation with the primary care physician or other designated or consulting physician as outlined in the discharge instructions. The patient and/or caregivers are agreeable to this plan of care and follow-up instructions have been explained in detail. The patient and/or caregivers have received these instruction. The patient/and or caregivers are aware that any significant change in condition or worsening of symptoms should prompt an immediate return to this or the closest emergency department or call 911.
[2023-02-07] MEDS ORDERED: DECADRON 10MG INJ. ONE (08:50)
[2023-02-07] MEDS ORDERED: DECADRON 10MG INJ. IM ONE (08:59)
[2023-02-07 09:25] VITALS: BP 103/79
[2023-02-07 09:29] VITALS: PULSE 89; RESP 22; O2SAT 97
== END 2023-02-07 09:47 | disposition home or self-care (01) ==
LOC: ED 08:18
DX: J04.0 Acute laryngitis (principal); J02.9 Acute pharyngitis, unspecified; Z79.899 Other long term (current) drug therapy; Z28.310 Unvaccinated for COVID-19; Z86.16 Personal history of COVID-19
CPT/HCPCS: 96372; 99283; J1100

== ENCOUNTER 2023-02-22 17:45 | Emergency (ER) | payer OTHER ==
[2023-02-22 18:00] VITALS: BP 135/61; PULSE 94; RESP 18; TEMP 98.5; O2SAT 98
--- NOTE | 2023-02-22 18:25 | ERPHSYRPT ---
- History of Present Illness Time Seen by Provider: 02/22/23 18:00 Source: patient Exam Limitations: no limitations Patient Subjective Stated Complaint: FAMILY NOTICED SOME FACIAL DROOPING TODAY, PT WORREID SHE MAY HAVE HAD A HEART ATTACK. Triage Nursing Assessment: PT ALERT AND ORIENTED X 3, VERY TALKATIVE, NO TROUBLE BREATHING/SHORTNESS OF BREATH, STROKE SCALE COMPLETED SCORE OF 0. Physician History: This is a 52-year-old morbidly obese white female patient has multiple medical issues and presents to the emergency department because a family member told her that she looked as though she might be having ischial drooping. Patient is worried about a stroke. Patient arrives to the emergency department moving all extremities, neurologically intact. She is laughing happy and in no distress. Patient has multiple medical issues including hypertension, hyperlipidemia, hypothyroidism, gastroesophageal reflux disease, COPD, bronchitis, peripheral vascular disease and arrhythmia issues. Timing/Duration: today Associated Symptoms: denies symptoms Allergies/Adverse Reactions: blue dye Allergy (Verified 02/22/23 18:01) levothyroxine sodium [From Synthroid] Allergy (Verified 02/22/23 18:01) Home Medications: PARoxetine HCL [Paroxetine HCl] 40 mg PO DAILY 10/25/18 [History] Oxybutynin Chloride Xl 5 mg [Ditropan XL 5 MG] 20 mg PO BID 04/18/20 [History] Albuterol Sulfate [Albuterol Sulfate Hfa] 2 puffs IH BID 01/04/22 [History] Aspirin EC 81 mg [Ecotrin 81 mg] 81 mg PO DAILY 01/04/22 [History] Cetirizine HCl [All Day Allergy Relief] 1 cap PO UD 01/04/22 [History] Cholecalciferol (Vitamin D3) [Vitamin D] 1 tab PO WEEKLY 01/04/22 [History] Cyanocobalamin/Cobamamide [Vitamin B-12 5,000 Mcg Tab Sl] 1 tab SL DAILY 01/04/22 [History] Fluticasone/Umeclidin/Vilanter [Trelegy Ellipta 100-62.5-25] 1 blist IH DAILY 01/04/22 [History] Levothyroxine Sodium [Tirosint] 175 mcg PO DAILY 01/04/22 [History] Loratadine/Pseudoephedrine [Allergy Relief D-24Hr Tablet] 1 cap PO DAILY 01/04/22 [History] Melatonin 6 mg PO HS 01/04/22 [History] Omeprazole 20 mg PO DAILY 01/04/22 [History] Pravastatin Sodium 20 mg PO DAILY 01/04/22 [History] diphenhydrAMINE HCL [Sleep Aid] 50 mg PO UD 01/04/22 [History] Lisinopril 5 mg [Zestril 5 MG] 5 mg PO DAILY 07/17/22 [History] Cariprazine HCl [Vraylar] 3 mg PO DAILY 02/22/23 [History] Prednisone 20 mg [Deltasone 20 mg] 60 mg PO DAILY 02/22/23 [History] Hx Tetanus, Diphtheria Vaccination/Date Given: Yes Hx Influenza Vaccination/Date Given: No Hx Pneumococcal Vaccination/Date Given: No Travel Risk - International Travel Have you traveled outside of the country in past 3 weeks: No - Coronavirus Screening Are you exhibiting any of the following symptoms?: No Symptoms: Cough: New Onset Close contact with a COVID-19 positive Pt in past 14-21 Days: No - Vaccine Status Have you recieved a Covid-19 vaccination: No - Review of Systems Constitutional: No Symptoms Eyes: No Symptoms Ears, Nose, & Throat: No Symptoms Respiratory: No Symptoms Cardiac: No Symptoms Abdominal/Gastrointestinal: No Symptoms Genitourinary Symptoms: No Symptoms Musculoskeletal: No Symptoms Skin: No Symptoms Neurological: No Symptoms Psychological: No Symptoms Endocrine: No Symptoms Hematologic/Lymphatic: No Symptoms Immunological/Allergic: No Symptoms All Other Systems: Reviewed and Negative - Past Medical History Pertinent Past Medical History: Yes Neurological History: No Pertinent History ENT History: No Pertinent History Cardiac History: Arrhythmia, Peripheral Vascular Disease Respiratory History: Sleep Apnea, Other, COPD, Asthma, Bronchitis Endocrine Medical History: No Pertinent History Musculoskeletal History: Osteoarthritis GI Medical History: GERD, Gallbladder Disease History: No Pertinent History Psycho-Social History: Depression, Anxiety Female Reproductive Disorders: No Pertinent History Other Medical History: Covid in August 2021 - Past Surgical History Past Surgical History: Yes Neuro Surgical History: No Pertinent History Cardiac: Other Respiratory: No Pertinent History Gastrointestinal: Cholecystectomy Genitourinary: No Pertinent History Musculoskeletal: No Pertinent History Female Surgical History: Other Other Surgical History: thyroid removed with "radioactive iodine pill". peripheral artery 2021. vaginal dysplasia surgery - Social History Smoking Status: Former smoker Exposure to second hand smoke: Yes Drug Use: none Patient Lives Alone: Yes Significant Family History: no pertinent family hx - Nursing Vital Signs Nursing Vital Signs: Initial Vital Signs Temperature 98.5 F 02/22/23 18:00 Pulse Rate 94 H 02/22/23 18:00 Respiratory Rate 18 02/22/23 18:00 Blood Pressure 135/61 02/22/23 18:00 O2 Sat by Pulse Oximetry 98 02/22/23 18:00 Pain Scale Pain Intensity 0 - Physical Exam General Appearance: no apparent distress, alert, obese Eye Exam: PERRL/EOMI, eyes nml inspection Ears, Nose, Throat Exam: normal ENT inspection, moist mucous membranes Neck Exam: normal inspection, non-tender, supple, full range of motion Respiratory Exam: normal breath sounds, lungs clear, airway intact, No chest tenderness, No respiratory distress Cardiovascular Exam: regular rate/rhythm, normal heart sounds, normal peripheral pulses Gastrointestinal/Abdomen Exam: soft, normal bowel sounds, No tenderness Pelvic Exam: not done Rectal Exam: not done Back Exam: normal inspection, normal range of motion, No CVA tenderness, No vertebral tenderness Extremity Exam: normal inspection, normal range of motion, pelvis stable Neurologic Exam: alert, oriented x 3, cooperative, manager ecommerce II-XII nml as tested, normal mood/affect, nml cerebellar function, nml station & gait, sensation nml, No facial droop, No slurred speech Skin Exam: normal color, warm, dry Lymphatic Exam: No adenopathy SpO2 Interpretation: normal SpO2: 98 O2 Delivery: Room Air - Course Nursing assessment & vital signs reviewed: Yes Ordered Tests: Active Orders 24 hr Category Date Time Status HEAD WITHOUT CONTRAST [CT] Stat Exams 02/22/23 17:59 Taken UA W/RFX UR CULTURE Stat Lab 02/22/23 18:32 Received - Progress Progress: unchanged Progress Note: 02/22/23 19:12 This patient is neurologically intact. She has been seen in our emergency department within the last month on 3 occasions. She has had a significant workup without any evidence of any acute cardiac or neurologic medical issues. I am ordering a CT scan of the head without contrast. I reviewed the CT scan results that were interpreted by the radiologist. The impression is stable, nonacute senile brain with some centimeters remote infarct right centrum semiovale. This is unchanged when compared to the CT scan of the head dated 02/01/2023, less than 1 month ago. Counseled pt/family regarding: diagnosis, need for follow-up, rad results Medical Desision Making - Diagnostic Testing Diagnostic test were ordered, analyzed, and reviewed by me: Yes Radiological Interpretation: Reviewed by me, Teleradiologist Report - Risk of complications Minimal Risk: Minimal risk of morbidity - Departure Departure Disposition: Home Clinical Impression: Anxiety about health, Encounter for medical screening examination Condition: Stable Critical Care Time: No Referrals: LEE TORO MD [Primary Care Provider] - Follow up/PCP as directed Additional Instructions: Take all your medications as prescribed. Follow-up with your primary care provider for further evaluation and management.
[2023-02-22 19:12] LABS: Appearance Clear (Clear); Bilirubin Negative (Negative); Blood Negative (Negative); Glucose, Urine Negative (Negative); Ketones Negative (Negative); Leukocyte Esterase Negative (Negative); Nitrite Negative (Negative); Protein,Urine Dip Negative (Negative); Specific Gravity <=1.005 (1.005-1.030); Urobilinogen 0.2 mg/dL (0.2)
[2023-02-22 19:22] LABS: ADD URINE CULTURE? NO (NO); Bacteria None Seen /HPF (None Seen); Epithelial Cells Rare /HPF (None Seen); WBC 0-2 /HPF (0-5)
--- NOTE | 2023-02-23 08:32 | XRAY ---
Indication: Facial drooping. Multiple contiguous axial images obtained through the head without contrast. Comparison: February 01, 2023 Again age-appropriate global atrophy, minimal periventricular degenerative micro-ischemia, and subcentimeter remote infarct right posterior centrum semiovale. No acute intracranial hemorrhage, abnormal extra-axial fluid collection, or mass effect. Fourth ventricle is midline without hydrocephalus. Bony calvarium intact. Visualized paranasal sinuses and mastoid air cells are clear. Impression: Again nonacute senile brain with stable subcentimeter remote infarct right centrum semiovale.
== END 2023-02-22 19:21 | disposition home or self-care (01) ==
LOC: ED 17:45
DX: Z71.1 Person with feared health complaint in whom no diagnosis is made (principal); F45.9 Somatoform disorder, unspecified; I10 Essential (primary) hypertension; E78.5 Hyperlipidemia, unspecified; Z79.52 Long term (current) use of systemic steroids; Z79.899 Other long term (current) drug therapy; Z28.310 Unvaccinated for COVID-19; Z86.16 Personal history of COVID-19
CPT/HCPCS: 70450; 81001; 99283

== ENCOUNTER 2023-02-27 21:21 | Emergency (ER) | payer OTHER ==
--- NOTE | 2023-02-27 21:52 | ERPHSYRPT ---
- History of Present Illness Time Seen by Provider: 02/27/23 21:51 Historian: patient Exam Limitations: no limitations Physician History: This is an obese 52-year-old white female who states that she has not had a "healthy poop" in 4 days. She feels bloated. She has some lower abdominal pressure. She denies any respiratory compromise or respiratory issues. She denies nausea or vomiting. Patient has multiple medical issues including arrhythmia, peripheral vascular disease, COPD, asthma, bronchitis, gastroesophageal reflux disease, depression and anxiety. Patient denies chest pain. Patient denies shortness of breath patient has not tried any type of medication to relieve her constipation. Timing/Duration: day(s) (4) Activities at Onset: none Quality: pressure Abdominal Pain Onset Location: generalized abdomen Pain Radiation: no radiation Severity of Pain-Max: mild Severity of Pain-Current: mild Modifying Factors: Improves With: nothing Associated Symptoms: denies symptoms Previous symptoms: no prior history Allergies/Adverse Reactions: blue dye Allergy (Verified 02/27/23 21:44) levothyroxine sodium [From Synthroid] Allergy (Verified 02/27/23 21:44) Home Medications: PARoxetine HCL [Paroxetine HCl] 40 mg PO DAILY 10/25/18 [History] Oxybutynin Chloride Xl 5 mg [Ditropan XL 5 MG] 20 mg PO BID 04/18/20 [History] Albuterol Sulfate [Albuterol Sulfate Hfa] 2 puffs IH BID 01/04/22 [History] Aspirin EC 81 mg [Ecotrin 81 mg] 81 mg PO DAILY 01/04/22 [History] Cetirizine HCl [All Day Allergy Relief] 1 cap PO UD 01/04/22 [History] Cholecalciferol (Vitamin D3) [Vitamin D] 1 tab PO WEEKLY 01/04/22 [History] Cyanocobalamin/Cobamamide [Vitamin B-12 5,000 Mcg Tab Sl] 1 tab SL DAILY 01/04/22 [History] Fluticasone/Umeclidin/Vilanter [Trelegy Ellipta 100-62.5-25] 1 blist IH DAILY 01/04/22 [History] Levothyroxine Sodium [Tirosint] 175 mcg PO DAILY 01/04/22 [History] Loratadine/Pseudoephedrine [Allergy Relief D-24Hr Tablet] 1 cap PO DAILY 01/04/22 [History] Melatonin 6 mg PO HS 01/04/22 [History] Omeprazole 20 mg PO DAILY 01/04/22 [History] Pravastatin Sodium 20 mg PO DAILY 01/04/22 [History] diphenhydrAMINE HCL [Sleep Aid] 50 mg PO UD 01/04/22 [History] Lisinopril 5 mg [Zestril 5 MG] 5 mg PO DAILY 07/17/22 [History] Cariprazine HCl [Vraylar] 3 mg PO DAILY 02/22/23 [History] Prednisone 20 mg [Deltasone 20 mg] 60 mg PO DAILY 02/22/23 [History] Hx Tetanus, Diphtheria Vaccination/Date Given: Yes Hx Influenza Vaccination/Date Given: No Hx Pneumococcal Vaccination/Date Given: No Travel Risk - International Travel Have you traveled outside of the country in past 3 weeks: No - Coronavirus Screening Are you exhibiting any of the following symptoms?: No Close contact with a COVID-19 positive Pt in past 14-21 Days: No - Vaccine Status Have you recieved a Covid-19 vaccination: No - Review of Systems Constitutional: No Symptoms Eyes: No Symptoms Ears, Nose, & Throat: No Symptoms Respiratory: No Symptoms Cardiac: No Symptoms Abdominal/Gastrointestinal: Constipation, Other (Mild diffuse abdominal distention) Genitourinary Symptoms: No Symptoms Musculoskeletal: No Symptoms Skin: No Symptoms Neurological: No Symptoms Psychological: No Symptoms Endocrine: No Symptoms Hematologic/Lymphatic: No Symptoms Immunological/Allergic: No Symptoms All Other Systems: Reviewed and Negative - Past Medical History Pertinent Past Medical History: Yes Neurological History: No Pertinent History ENT History: No Pertinent History Cardiac History: Arrhythmia, Peripheral Vascular Disease Respiratory History: Sleep Apnea, Other, COPD, Asthma, Bronchitis Endocrine Medical History: No Pertinent History Musculoskeletal History: Osteoarthritis GI Medical History: GERD, Gallbladder Disease History: No Pertinent History Psycho-Social History: Depression, Anxiety Female Reproductive Disorders: No Pertinent History Other Medical History: Covid in August 2021 - Past Surgical History Past Surgical History: Yes Neuro Surgical History: No Pertinent History Cardiac: Other Respiratory: No Pertinent History Gastrointestinal: Cholecystectomy Genitourinary: No Pertinent History Musculoskeletal: No Pertinent History Female Surgical History: Other Other Surgical History: thyroid removed with "radioactive iodine pill". peripheral artery 2021. vaginal dysplasia surgery - Social History Smoking Status: Former smoker Exposure to second hand smoke: Yes Drug Use: none Patient Lives Alone: Yes Significant Family History: no pertinent family hx - Nursing Vital Signs Nursing Vital Signs: Initial Vital Signs Temperature 97 F 02/27/23 21:40 Pulse Rate 87 02/27/23 21:40 Respiratory Rate 16 02/27/23 21:40 Blood Pressure 143/78 02/27/23 21:40 O2 Sat by Pulse Oximetry 99 02/27/23 21:40 Pain Scale Pain Intensity 0 - Physical Exam General Appearance: no apparent distress, alert, anxiety, obese, other (Patient is laughing smiling and joking) Eye Exam: PERRL/EOMI, eyes nml inspection Ears, Nose, Throat Exam: normal ENT inspection, moist mucous membranes Neck Exam: normal inspection, non-tender, supple, full range of motion Respiratory Exam: airway intact, No chest tenderness, No respiratory distress Gastrointestinal/Abdomen Exam: distention (Mild diffuse), No tenderness, No guarding Pelvic Exam: not done Rectal Exam: deferred Back Exam: normal inspection, normal range of motion, No CVA tenderness, No vertebral tenderness Extremity Exam: normal inspection, normal range of motion, pelvis stable Neurologic Exam: alert, oriented x 3, cooperative, 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 The level complexity in the workup performed is based on review of the patient's past medical history, review the patient's medication list, review the patient's drug allergy list, history present illness and physical findings on examination. This patient's workup includes KUB. I interpreted the KUB results. There is stool in the sigmoid colon as well as in the rectal vault. There is no evidence of any air-fluid levels or free air. 02/27/23 23:28 Patient had moderate response with the soapsuds enema. Patient states she is zoë shelton better and wants to go home. Counseled pt/family regarding: diagnosis, need for follow-up, rad results Medical Desision Making - Diagnostic Testing Diagnostic test were ordered, analyzed, and reviewed by me: Yes Radiological Interpretation: Interpreted by me - Risk of complications Minimal Risk: Minimal risk of morbidity - Departure Departure Disposition: Home Clinical Impression: Constipation Condition: Stable Critical Care Time: No Referrals: LEE TORO MD [Primary Care Provider] - Follow up/PCP as directed Additional Instructions: Drink plenty of clear liquids. May use [id number] MiraLAX each morning for 3 mornings. Follow the directions on the bottle. May also use glycerin suppositories and/or fleets enemas rectally to help with stimulating your bowels to move. Call your primary care provider tomorrow, 02/28/2023, to make an arrangement for follow-up appointment for further evaluation and management of your constipation.
[2023-02-27 21:56] VITALS: TEMP 97
[2023-02-27 23:55] VITALS: BP 132/68; PULSE 74; RESP 16; O2SAT 98
--- NOTE | 2023-02-28 08:59 | XRAY ---
Indication: Constipation. Comparison: January 23, 2019 KUB nonacute and nonobstructed with new mild diffuse scattered colonic fecal debris including rectum. Again cholecystectomy. Remaining solid organs unremarkable. Osseous structures intact again with mild degenerative changes visualized spine/both hips and minimal levoscoliosis.
== END 2023-02-27 23:53 | disposition home or self-care (01) ==
LOC: ED 21:21
DX: K59.00 Constipation, unspecified (principal); R10.30 Lower abdominal pain, unspecified; Z79.52 Long term (current) use of systemic steroids; Z79.899 Other long term (current) drug therapy; Z28.310 Unvaccinated for COVID-19; Z86.16 Personal history of COVID-19
CPT/HCPCS: 74018; 99283

== ENCOUNTER 2023-03-20 20:17 | Emergency (ER) | payer OTHER ==
[2023-03-20 20:22] VITALS: TEMP 98.1
[2023-03-20 20:56] LABS: Absolute Neutrophil Ct (ANC) 4.91 x10^3/uL (1.4-6.9); BASOPHIL % 0.4 % (0.0-0.4); Basophil (Absolute #) 0.03 x10^3/uL (0-0.4); Eosinophil % 0.8 % (0.00-5.0); Eosinophil (Absolute #) 0.06 x10^3/uL (0-0.5); Hematocrit 38.3 % (35-47); IMMATURE GRAN # 0.02 x10^3u/L (0.00-0.03); IMMATURE GRAN % 0.3 % (0.00-0.4); Lymphocyte (Absolute #) 2.02 x10^3/uL (1.0-4.6); Lymphocytes % 25.8 % (24.0-44.0); Mean Corpuscular Hemoglobin 29.8 pg (26-32); Mean Corpuscular Hgb Concent. 31.3 g/dL (32-36); Mean Platelet Volume 9.7 fL (7.5-11.0); Monocytes % 10.2 % (0.0-12.0); Neutrophil % 62.5 % (36.0-66.0); Platelet Count 276 x10^3/uL (150-450); Red Blood Count 4.03 x10^6/uL (4.1-5.4); Red Cell Distribution Width 12.4 % (11.5-14.0); White Blood Count 7.8 x10^3/uL (4.0-10.5)
[2023-03-20 21:14] LABS: ALBUMIN 4.1 g/dL (3.5-5.0); ANION GAP 9.2 MEQ/L (5-15); BILIRUBIN,TOTAL 0.3 mg/dL (0.2-1.3); Calcium 9.1 mg/dL (8.4-10.2); Creatinine 1 0.71 mg/dL (0.52-1.04); EST GLOMERULAR FILTRATION RATE 102.2 ML/MIN; Total Protein 7.1 g/dL (6.3-8.2)
[2023-03-20 21:16] LABS: INR 1.03 (0.8-3.0); PROTIME 11.2 SECONDS (9.4-12.5); PTT 25.7 SECONDS (25.1-36.5)
--- NOTE | 2023-03-20 21:55 | ERPHSYRPT ---
- History of Present Illness Historian: patient Exam Limitations: no limitations Patient Subjective Stated Complaint: chest pain Triage Nursing Assessment: Pt ambulated into ER without diff. Pt is alert and oriented x4, pleasant, cooperative and super talkative. Pt c/o chest pain which began at 8pm tonight at rest to center of chest/sternum area with no radiation to neck, arms or back. Lungs clear, heart tones reg, no edema noted. Pt denies any chest pain at this time upon assessment in ER, pt denies any sob. Physician History: Patient is a 52-year-old female with midsternal chest pain which occurred at rest at home and lasted approximate 15 minutes and was resolved before she got to the ER. Pain was midsternal without any radiation. She denies any dyspnea, nausea, vomiting, or diaphoresis. Past medical history includes diabetes mellitus, hypertension, 1 pack a day tobacco abuse until 2006, and pulmonary embolus in the past. Patient states she had a cardiac arrest in the past with successful resuscitation. Timing/Duration: today (Pain lasted 50 minutes and resolved before ER arrival.) Activities at Onset: rest Quality: aching Location: substernal Chest Pain Radiation: no radiation Severity of Pain-Max: moderate Severity of Pain-Current: none Modifying Factors: Improves With: nothing Associated Symptoms: denies symptoms Prior Chest Pain/Cardiac Workup: pulmonary embolism Nitro Today/Relief: no nitro taken today Aspirin Treatment Today: no aspirin today Allergies/Adverse Reactions: blue dye Allergy (Verified 03/20/23 20:32) levothyroxine sodium [From Synthroid] Allergy (Verified 03/20/23 20:32) Home Medications: PARoxetine HCL [Paroxetine HCl] 20 mg PO DAILY 10/25/18 [History] Oxybutynin Chloride Xl 5 mg [Ditropan XL 5 MG] 20 mg PO BID 04/18/20 [History] Albuterol Sulfate [Albuterol Sulfate Hfa] 2 puffs IH BID 01/04/22 [History] Cholecalciferol (Vitamin D3) [Vitamin D] 1 tab PO WEEKLY 01/04/22 [History] Fluticasone/Umeclidin/Vilanter [Trelegy Ellipta 100-62.5-25] 1 blist IH DAILY 01/04/22 [History] Levothyroxine Sodium [Tirosint] 175 mcg PO DAILY 01/04/22 [History] Omeprazole 20 mg PO DAILY 01/04/22 [History] Pravastatin Sodium 20 mg PO DAILY 01/04/22 [History] Lisinopril 5 mg [Zestril 5 MG] 5 mg PO DAILY 07/17/22 [History] Cariprazine HCl [Vraylar] 4.5 mg PO DAILY 02/22/23 [History] Metformin HCl 500 mg [Glucophage 500 MG] 1 tab PO DAILY 03/20/23 [History] Hx Tetanus, Diphtheria Vaccination/Date Given: Yes Hx Influenza Vaccination/Date Given: No Hx Pneumococcal Vaccination/Date Given: No Immunizations Up to Date: No Travel Risk - International Travel Have you traveled outside of the country in past 3 weeks: No - Coronavirus Screening Are you exhibiting any of the following symptoms?: No Close contact with a COVID-19 positive Pt in past 14-21 Days: No - Vaccine Status Have you recieved a Covid-19 vaccination: No - Review of Systems Constitutional: No Symptoms Eyes: No Symptoms Ears, Nose, & Throat: No Symptoms Respiratory: No Symptoms Cardiac: No Symptoms, Chest Pain Abdominal/Gastrointestinal: No Symptoms Genitourinary Symptoms: No Symptoms Musculoskeletal: No Symptoms Skin: No Symptoms Neurological: No Symptoms Psychological: No Symptoms Endocrine: No Symptoms Hematologic/Lymphatic: No Symptoms Immunological/Allergic: No Symptoms - Past Medical History Pertinent Past Medical History: Yes Neurological History: No Pertinent History ENT History: No Pertinent History Cardiac History: Arrhythmia, Peripheral Vascular Disease Respiratory History: Sleep Apnea, Other, COPD, Asthma, Bronchitis Endocrine Medical History: No Pertinent History Musculoskeletal History: Osteoarthritis GI Medical History: GERD, Gallbladder Disease History: No Pertinent History Psycho-Social History: Anxiety, Bipolar, Depression Female Reproductive Disorders: No Pertinent History Other Medical History: Covid in August 2021 - Past Surgical History Past Surgical History: Yes Neuro Surgical History: No Pertinent History Cardiac: Other Respiratory: No Pertinent History Gastrointestinal: Cholecystectomy Genitourinary: No Pertinent History Musculoskeletal: No Pertinent History Female Surgical History: Other Other Surgical History: thyroid removed with "radioactive iodine pill". peripheral artery 2021. vaginal dysplasia surgery - Social History Smoking Status: Former smoker Exposure to second hand smoke: No Drug Use: none Patient Lives Alone: Yes Significant Family History: no pertinent family hx - Nursing Vital Signs Nursing Vital Signs: Initial Vital Signs Pulse Rate 71 03/20/23 20:18 Respiratory Rate 14 03/20/23 20:18 Blood Pressure 134/89 03/20/23 20:18 O2 Sat by Pulse Oximetry 99 03/20/23 20:18 Pain Scale Pain Intensity 0 Borderline hypertensive - Physical Exam General Appearance: no apparent distress Eye Exam: PERRL/EOMI, eyes nml inspection Ears, Nose, Throat Exam: normal ENT inspection, TMs normal, pharynx normal, moist mucous membranes Neck Exam: normal inspection, non-tender, supple, full range of motion, No meningismus, No mass, No Brudzinski, No Kernig's Respiratory Exam: normal breath sounds, lungs clear, airway intact, No respiratory distress Cardiovascular Exam: regular rate/rhythm, normal heart sounds, normal peripheral pulses, capillary refill <2 sec, No murmur Gastrointestinal/Abdomen Exam: soft, normal bowel sounds Back Exam: normal inspection, normal range of motion Extremity Exam: normal inspection, normal range of motion Neurologic Exam: alert, oriented x 3, cooperative, 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, normal mood/affect, nml cerebellar function, nml station & gait, sensation nml Skin Exam: normal color, warm, dry Lymphatic Exam: No adenopathy SpO2 Interpretation: normal SpO2: 100 O2 Delivery: Room Air - Course Nursing assessment & vital signs reviewed: Yes EKG Interpreted by Me: RATE (Normal sinus rhythm/rate 71/normal QT-QTc/no acute ST segment changes/interpreted contemporaneously per ER physician.) - Radiology Exams Chest X-ray Interpretation: Interpreted by me (No active disease) Ordered Tests: Active Orders 24 hr Category Date Time Status EKG-ER Only STAT Care 03/20/23 20:42 Active CHEST 1 VIEW (PORTABLE) Stat Exams 03/20/23 20:42 Taken CBC W DIFF Stat Lab 03/20/23 20:52 Completed CMP Stat Lab 03/20/23 20:52 Completed D-DIMER QUANTITATIVE Stat Lab 03/20/23 20:52 Completed NT PRO BNPII Stat Lab 03/20/23 20:52 Completed PROTIME WITH INR Stat Lab 03/20/23 20:52 Completed PTT Stat Lab 03/20/23 20:52 Completed TROPONIN Q4H Lab 03/20/23 20:52 Completed TROPONIN Stat Lab 03/20/23 23:40 Completed Lab/Rad Data: Laboratory Result Diagrams 03/20/23 20:52 03/20/23 20:52 Laboratory Results 03/20/23 03/20/23 03/20/23 Range/Units 23:40 20:52 20:52 WBC (4.0-10.5) x10^3/uL RBC (4.1-5.4) x10^6/uL Hgb (12.0-16.0) g/dL Hct (35-47) % MCV (78-100) fL MCH (26-32) pg MCHC (32-36) g/dL RDW (11.5-14.0) % Plt Count (150-450) x10^3/uL MPV (7.5-11.0) fL Gran % (36.0-66.0) % Immature Gran % (Auto) (0.00-0.4) % Nucleat RBC Rel Count (0.00-0.1) % Eos # (Auto) (0-0.5) x10^3/uL Immature Gran # (Auto) (0.00-0.03) x10^3u/L Absolute Lymphs (auto) (1.0-4.6) x10^3/uL Absolute Monos (auto) (0.0-1.3) x10^3/uL Absolute Nucleated RBC (0.00-0.01) x10^3u/L Lymphocytes % (24.0-44.0) % Monocytes % (0.0-12.0) % Eosinophils % (0.00-5.0) % Basophils % (0.0-0.4) % Absolute Granulocytes (1.4-6.9) x10^3/uL Basophils # (0-0.4) x10^3/uL PT (9.4-12.5) SECONDS INR (0.8-3.0) APTT (25.1-36.5) SECONDS D-Dimer 0.43 (0.0-0.50) mg/L Sodium (137-145) mmol/L Potassium (3.5-5.1) mmol/L Chloride (98-107) mmol/L Carbon Dioxide (22-30) mmol/L Anion Gap (5-15) MEQ/L BUN (7-17) mg/dL Creatinine (0.52-1.04) mg/dL Estimated GFR ML/MIN Glucose (74-106) mg/dL Calcium (8.4-10.2) mg/dL Total Bilirubin (0.2-1.3) mg/dL AST (14-36) U/L ALT (0-35) U/L Alkaline Phosphatase (38-126) U/L Troponin I < 0.012 (0.000-0.034) ng/mL NT-Pro-B Natriuret Pep 59.6 (<300) pg/mL Serum Total Protein (6.3-8.2) g/dL Albumin (3.5-5.0) g/dL 03/20/23 03/20/23 03/20/23 Range/Units 20:52 20:52 20:52 WBC (4.0-10.5) x10^3/uL RBC (4.1-5.4) x10^6/uL Hgb (12.0-16.0) g/dL Hct (35-47) % MCV (78-100) fL MCH (26-32) pg MCHC (32-36) g/dL RDW (11.5-14.0) % Plt Count (150-450) x10^3/uL MPV (7.5-11.0) fL Gran % (36.0-66.0) % Immature Gran % (Auto) (0.00-0.4) % Nucleat RBC Rel Count (0.00-0.1) % Eos # (Auto) (0-0.5) x10^3/uL Immature Gran # (Auto) (0.00-0.03) x10^3u/L Absolute Lymphs (auto) (1.0-4.6) x10^3/uL Absolute Monos (auto) (0.0-1.3) x10^3/uL Absolute Nucleated RBC (0.00-0.01) x10^3u/L Lymphocytes % (24.0-44.0) % Monocytes % (0.0-12.0) % Eosinophils % (0.00-5.0) % Basophils % (0.0-0.4) % Absolute Granulocytes (1.4-6.9) x10^3/uL Basophils # (0-0.4) x10^3/uL PT 11.2 (9.4-12.5) SECONDS INR 1.03 (0.8-3.0) APTT 25.7 (25.1-36.5) SECONDS D-Dimer (0.0-0.50) mg/L Sodium 135 L (137-145) mmol/L Potassium 4.0 (3.5-5.1) mmol/L Chloride 104 (98-107) mmol/L Carbon Dioxide 26 (22-30) mmol/L Anion Gap 9.2 (5-15) MEQ/L BUN 14 (7-17) mg/dL Creatinine 0.71 (0.52-1.04) mg/dL Estimated GFR 102.2 ML/MIN Glucose 100 (74-106) mg/dL Calcium 9.1 (8.4-10.2) mg/dL Total Bilirubin 0.30 (0.2-1.3) mg/dL AST 24 (14-36) U/L ALT 10 (0-35) U/L Alkaline Phosphatase 77 (38-126) U/L Troponin I < 0.012 (0.000-0.034) ng/mL NT-Pro-B Natriuret Pep (<300) pg/mL Serum Total Protein 7.1 (6.3-8.2) g/dL Albumin 4.1 (3.5-5.0) g/dL 03/20/23 Range/Units 20:52 WBC 7.8 (4.0-10.5) x10^3/uL RBC 4.03 L (4.1-5.4) x10^6/uL Hgb 12.0 (12.0-16.0) g/dL Hct 38.3 (35-47) % MCV 95.0 (78-100) fL MCH 29.8 (26-32) pg MCHC 31.3 L (32-36) g/dL RDW 12.4 (11.5-14.0) % Plt Count 276 (150-450) x10^3/uL MPV 9.7 (7.5-11.0) fL Gran % 62.5 (36.0-66.0) % Immature Gran % (Auto) 0.3 (0.00-0.4) % Nucleat RBC Rel Count 0.0 (0.00-0.1) % Eos # (Auto) 0.06 (0-0.5) x10^3/uL Immature Gran # (Auto) 0.02 (0.00-0.03) x10^3u/L Absolute Lymphs (auto) 2.02 (1.0-4.6) x10^3/uL Absolute Monos (auto) 0.80 (0.0-1.3) x10^3/uL Absolute Nucleated RBC 0.00 (0.00-0.01) x10^3u/L Lymphocytes % 25.8 (24.0-44.0) % Monocytes % 10.2 (0.0-12.0) % Eosinophils % 0.8 (0.00-5.0) % Basophils % 0.4 (0.0-0.4) % Absolute Granulocytes 4.91 (1.4-6.9) x10^3/uL Basophils # 0.03 (0-0.4) x10^3/uL PT (9.4-12.5) SECONDS INR (0.8-3.0) APTT (25.1-36.5) SECONDS D-Dimer (0.0-0.50) mg/L Sodium (137-145) mmol/L Potassium (3.5-5.1) mmol/L Chloride (98-107) mmol/L Carbon Dioxide (22-30) mmol/L Anion Gap (5-15) MEQ/L BUN (7-17) mg/dL Creatinine (0.52-1.04) mg/dL Estimated GFR ML/MIN Glucose (74-106) mg/dL Calcium (8.4-10.2) mg/dL Total Bilirubin (0.2-1.3) mg/dL AST (14-36) U/L ALT (0-35) U/L Alkaline Phosphatase (38-126) U/L Troponin I (0.000-0.034) ng/mL NT-Pro-B Natriuret Pep (<300) pg/mL Serum Total Protein (6.3-8.2) g/dL Albumin (3.5-5.0) g/dL - Progress Progress Note: 03/21/23 00:18 Nursing note and vital signs reviewed. 03/21/23 00:18 No food or housing insecurity noted. All lab work reviewed and shared with patient. Chest x-ray result reviewed and shared with patient. Patient without any chest pain while in the ER. EKG without acute changes. Troponin negative x 2. D-dimer also within normal limit. Patient's heart score is 3. 03/21/23 00:42 Counseled pt/family regarding: lab results, diagnosis, need for follow-up, rad results Medical Desision Making - Diagnostic Testing Diagnostic test were ordered, analyzed, and reviewed by me: Yes Radiological Interpretation: Interpreted by me - Risk of complications Low Risk: Low risk of morbidity from additional dx testing or treatment - Departure Departure Disposition: Home Clinical Impression: Chest pain Condition: Stable Critical Care Time: No Referrals: LEE TORO MD [Primary Care Provider] - Follow up/PCP as directed Instructions: Chest Pain (DC) Additional Instructions: Follow-up with your family MD in 1 to 2 days. Return to ER for increasing pain or increasing shortness of breath.
[2023-03-20 23:46] VITALS: RESP 20
[2023-03-21 00:18] VITALS: O2SAT 100
[2023-03-21 00:48] VITALS: BP 119/81; PULSE 70
--- NOTE | 2023-03-21 09:04 | XRAY ---
Indication: Chest pain. Comparison: February 01, 2023 Portable chest again demonstrates normal heart and lungs. Bony thorax intact again with mild degenerative changes. No new/acute findings.
== END 2023-03-21 00:23 | disposition home or self-care (01) ==
LOC: ED 20:17
DX: R07.9 Chest pain, unspecified (principal); E11.9 Type 2 diabetes mellitus without complications; I10 Essential (primary) hypertension; Z79.84 Long term (current) use of oral hypoglycemic drugs; Z79.899 Other long term (current) drug therapy; Z28.310 Unvaccinated for COVID-19; Z86.16 Personal history of COVID-19
CPT/HCPCS: 36000; 36415; 71045; 80053; 83880; 84484; 85025; 85379; 85610; 85730; 93005; 99284

== ENCOUNTER 2023-03-29 13:20 | Emergency (ER) | payer OTHER ==
[2023-03-29 13:23] VITALS: TEMP 97.1
--- NOTE | 2023-03-29 13:34 | ERPHSYRPT ---
- History of Present Illness Time Seen by Provider: 03/29/23 13:34 Historian: patient Exam Limitations: no limitations Patient Subjective Stated Complaint: pt here for chest pain substernal that radiates to right arm and to face after lunch today, she now states pain is go ne, she also states she has been under stress lately Triage Nursing Assessment: pt alert, walked in, resp easy, skin w/d/p. chest clear. Physician History: This is a 52-year-old obese white female patient who presents with central, substernal chest pain that she describes as achiness and pressure that goes into her right arm and up her neck bilaterally. She states the pain began after lunch today. However, she arrived to the emergency department and is completely pain-free per her report. Patient is smiling, joking and laughing. Patient s tates she is under a lot of stress at this time. Other than an arrhythmia, patient has no diagnosed history of coronary artery disease. She does have a history of peripheral vascular disease, COPD, diabetes, hypertension, hyperlipidemia, hypothyroidism and gastroesophageal reflux disease. Timing/Duration: today Activities at Onset: none Quality: aching, pressure Location: substernal, central Chest Pain Radiation: jaw, neck, arm Severity of Pain-Max: mild (Right arm) Severity of Pain-Current: none Modifying Factors: Improves With: nothing Associated Symptoms: denies symptoms Prior Chest Pain/Cardiac Workup: no prior chest pain Nitro Today/Relief: no nitro taken today Aspirin Treatment Today: 81 mg x 4, provided by ED Allergies/Adverse Reactions: blue dye Allergy (Verified 03/29/23 13:23) levothyroxine sodium [From Synthroid] Allergy (Verified 03/29/23 13:23) Home Medications: PARoxetine HCL [Paroxetine HCl] 20 mg PO DAILY 10/25/18 [History] Oxybutynin Chloride Xl 5 mg [Ditropan XL 5 MG] 20 mg PO BID 04/18/20 [History] Albuterol Sulfate [Albuterol Sulfate Hfa] 2 puffs IH BID 01/04/22 [History] Cholecalciferol (Vitamin D3) [Vitamin D] 1 tab PO WEEKLY 01/04/22 [History] Fluticasone/Umeclidin/Vilanter [Trelegy Ellipta 100-62.5-25] 1 blist IH DAILY 01/04/22 [History] Levothyroxine Sodium [Tirosint] 175 mcg PO DAILY 01/04/22 [History] Omeprazole 20 mg PO DAILY 01/04/22 [History] Pravastatin Sodium 20 mg PO DAILY 01/04/22 [History] Lisinopril 5 mg [Zestril 5 MG] 5 mg PO DAILY 07/17/22 [History] Cariprazine HCl [Vraylar] 4.5 mg PO DAILY 02/22/23 [History] Metformin HCl 500 mg [Glucophage 500 MG] 1 tab PO DAILY 03/20/23 [History] Hx Tetanus, Diphtheria Vaccination/Date Given: No Hx Influenza Vaccination/Date Given: No Hx Pneumococcal Vaccination/Date Given: No Immunizations Up to Date: Yes Travel Risk - International Travel Have you traveled outside of the country in past 3 weeks: No - Coronavirus Screening Are you exhibiting any of the following symptoms?: No Close contact with a COVID-19 positive Pt in past 14-21 Days: No - Vaccine Status Have you recieved a Covid-19 vaccination: No - Review of Systems Constitutional: No Symptoms Eyes: No Symptoms Ears, Nose, & Throat: No Symptoms Respiratory: No Symptoms Cardiac: Chest Pain Abdominal/Gastrointestinal: No Symptoms Genitourinary Symptoms: No Symptoms Musculoskeletal: No Symptoms Skin: No Symptoms Neurological: No Symptoms Psychological: No Symptoms Endocrine: No Symptoms Hematologic/Lymphatic: No Symptoms Immunological/Allergic: No Symptoms All Other Systems: Reviewed and Negative - Past Medical History Pertinent Past Medical History: Yes Neurological History: No Pertinent History ENT History: No Pertinent History Cardiac History: Arrhythmia, Peripheral Vascular Disease Respiratory History: Sleep Apnea, Other, COPD, Asthma, Bronchitis Endocrine Medical History: No Pertinent History Musculoskeletal History: Osteoarthritis GI Medical History: GERD, Gallbladder Disease History: No Pertinent History Psycho-Social History: Anxiety, Bipolar, Depression Female Reproductive Disorders: No Pertinent History Other Medical History: Covid in August 2021 - Past Surgical History Past Surgical History: Yes Neuro Surgical History: No Pertinent History Cardiac: Other Respiratory: No Pertinent History Gastrointestinal: Cholecystectomy Genitourinary: No Pertinent History Musculoskeletal: No Pertinent History Female Surgical History: Other Other Surgical History: thyroid removed with "radioactive iodine pill". perip heral artery 2021. vaginal dysplasia surgery - Social History Smoking Status: Former smoker Exposure to second hand smoke: No Drug Use: none Patient Lives Alone: Yes Significant Family History: no pertinent family hx - Nursing Vital Signs Nursing Vital Signs: Initial Vital Signs Temperature 97.1 F 03/29/23 13:21 Pulse Rate 80 03/29/23 13:21 Respiratory Rate 16 03/29/23 13:21 Blood Pressure 112/85 03/29/23 13:21 O2 Sat by Pulse Oximetry 98 03/29/23 13:21 Pain Scale Pain Intensity 0 - Physical Exam General Appearance: no apparent distress, alert, anxiety, obese Eye Exam: PERRL/EOMI, eyes nml inspection Ears, Nose, Throat Exam: normal ENT inspection, moist mucous membranes Neck Exam: normal inspection, non-tender, supple, full range of motion Respiratory Exam: normal breath sounds, lungs clear, airway intact, No chest tenderness (She does not have tenderness at this time), No respiratory distress Cardiovascular Exam: regular rate/rhythm, normal heart sounds, normal peripheral pulses Gastrointestinal/Abdomen Exam: soft, normal bowel sounds, No tenderness Pelvic Exam: not done Rectal Exam: not done Back Exam: normal inspection, normal range of motion, No CVA tenderness, No vertebral tenderness Extremity Exam: normal inspection, normal range of motion, pelvis stable Neurologic Exam: alert, oriented x 3, cooperative, 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, normal mood/affect, nml cerebellar function, nml station & gait, sensation nml Skin Exam: normal color, warm, dry Lymphatic Exam: No adenopathy SpO2 Interpretation: normal SpO2: 98 O2 Delivery: Room Air - Course Nursing assessment & vital signs reviewed: Yes EKG Interpreted by Me: RATE (76), Sinus Rhythm, NORMAL AXIS, NORMAL INTERVALS, NORMAL QRS, NORMAL ST-T, Other (No acute ischemic changes on today's twelve-lead EKG.) Ordered Tests: Active Orders 24 hr Category Date Time Status EKG-ER Only STAT Care 03/29/23 13:40 Active IV Insertion STAT Care 03/29/23 13:40 Active Pulse Oximetry (ED) STAT Care 03/29/23 13:40 Active CHEST WITH CONTRAST [CT] Stat Exams 03/29/23 14:47 Completed CBC W DIFF Stat Lab 03/29/23 13:45 Completed CMP Stat Lab 03/29/23 13:45 Completed D-DIMER QUANTITATIVE Stat Lab 03/29/23 13:45 Completed TROPONIN Q4H Lab 03/29/23 13:45 Completed TROPONIN Q4H Lab 03/29/23 17:45 Ordered TROPONIN Q4H Lab 03/29/23 21:45 Ordered Medication Summary Discontinued Medications Generic Name Dose Route Start Last Admin Trade Name Freq PRN Reason Stop Dose Admin Aspirin 324 mg 03/29/23 13:40 03/29/23 13:48 Aspirin 81 Mg Tab.Chew PO 03/29/23 13:41 324 mg STAT ONE Administration Aspirin Confirm 03/29/23 13:47 Aspirin 81 Mg Tab.Chew Administered 03/29/23 13:48 Dose 81 mg .ROUTE .STK-MED ONE Lab/Rad Data: Laboratory Result Diagrams 03/29/23 13:45 03/29/23 13:45 Laboratory Results 03/29/23 03/29/23 03/29/23 Range/Units 13:45 13:45 13:45 WBC (4.0-10.5) x10^3/uL RBC (4.1-5.4) x10^6/uL Hgb (12.0-16.0) g/dL Hct (35-47) % MCV (78-100) fL MCH (26-32) pg MCHC (32-36) g/dL RDW (11.5-14.0) % Plt Count (150-450) x10^3/uL MPV (7.5-11.0) fL Gran % (36.0-66.0) % Immature Gran % (Auto) (0.00-0.4) % Nucleat RBC Rel Count (0.00-0.1) % Eos # (Auto) (0-0.5) x10^3/uL Immature Gran # (Auto) (0.00-0.03) x10^3u/L Absolute Lymphs (auto) (1.0-4.6) x10^3/uL Absolute Monos (auto) (0.0-1.3) x10^3/uL Absolute Nucleated RBC (0.00-0.01) x10^3u/L Lymphocytes % (24.0-44.0) % Monocytes % (0.0-12.0) % Eosinophils % (0.00-5.0) % Basophils % (0.0-0.4) % Absolute Granulocytes (1.4-6.9) x10^3/uL Basophils # (0-0.4) x10^3/uL D-Dimer 0.59 H (0.0-0.50) mg/L Sodium 136 L (137-145) mmol/L Potassium 4.1 (3.5-5.1) mmol/L Chloride 104 (98-107) mmol/L Carbon Dioxide 27 (22-30) mmol/L Anion Gap 9.3 (5-15) MEQ/L BUN 14 (7-17) mg/dL Creatinine 0.60 (0.52-1.04) mg/dL Estimated GFR 107.9 ML/MIN Glucose 126 H (74-106) mg/dL Calcium 8.9 (8.4-10.2) mg/dL Total Bilirubin 0.50 (0.2-1.3) mg/dL AST 23 (14-36) U/L ALT 13 (0-35) U/L Alkaline Phosphatase 79 (38-126) U/L Troponin I < 0.012 (0.000-0.034) ng/mL Serum Total Protein 7.0 (6.3-8.2) g/dL Albumin 3.9 (3.5-5.0) g/dL 03/29/23 Range/Units 13:45 WBC 8.2 (4.0-10.5) x10^3/uL RBC 4.11 (4.1-5.4) x10^6/uL Hgb 12.3 (12.0-16.0) g/dL Hct 38.6 (35-47) % MCV 93.9 (78-100) fL MCH 29.9 (26-32) pg MCHC 31.9 L (32-36) g/dL RDW 12.2 (11.5-14.0) % Plt Count 321 (150-450) x10^3/uL MPV 10.3 (7.5-11.0) fL Gran % 71.1 H (36.0-66.0) % Immature Gran % (Auto) 0.2 (0.00-0.4) % Nucleat RBC Rel Count 0.0 (0.00-0.1) % Eos # (Auto) 0.12 (0-0.5) x10^3/uL Immature Gran # (Auto) 0.02 (0.00-0.03) x10^3u/L Absolute Lymphs (auto) 1.58 (1.0-4.6) x10^3/uL Absolute Monos (auto) 0.62 (0.0-1.3) x10^3/uL Absolute Nucleated RBC 0.00 (0.00-0.01) x10^3u/L Lymphocytes % 19.2 L (24.0-44.0) % Monocytes % 7.5 (0.0-12.0) % Eosinophils % 1.5 (0.00-5.0) % Basophils % 0.5 (0.0-0.4) % Absolute Granulocytes 5.85 (1.4-6.9) x10^3/uL Basophils # 0.04 (0-0.4) x10^3/uL D-Dimer (0.0-0.50) mg/L Sodium (137-145) mmol/L Potassium (3.5-5.1) mmol/L Chloride (98-107) mmol/L Carbon Dioxide (22-30) mmol/L Anion Gap (5-15) MEQ/L BUN (7-17) mg/dL Creatinine (0.52-1.04) mg/dL Estimated GFR ML/MIN Glucose (74-106) mg/dL Calcium (8.4-10.2) mg/dL Total Bilirubin (0.2-1.3) mg/dL AST (14-36) U/L ALT (0-35) U/L Alkaline Phosphatase (38-126) U/L Troponin I (0.000-0.034) ng/mL Serum Total Protein (6.3-8.2) g/dL Albumin (3.5-5.0) g/dL - Progress Progress: improved, re-examined Air Movement: good Progress Note: 03/29/23 13:58 This patient's medical issue is 1 of moderate complexity. The level of complexity in the workup performed is based on review of the patient's past medical history, review of the patient's medication list, review the patient's drug allergy list, history present illness and physical findings on examination. The workup of this patient includes placement of an intravenous line, 4 baby aspirin to be chewed, CBC, CMP, D-dimer, troponin level, twelve-lead EKG. 03/29/23 16:47 I interpreted the patient's laboratory data results. There is no evidence of any acute or emergent medical issue based on her laboratory data results. CT scan of the chest with contrast was interpreted by the radiologist and I reviewed the impression. There is no evidence of any acute cardiopulmonary process. The test is negative for pulmonary embolus. Blood Culture(s) Obtained: No Antibiotics given: No Counseled pt/family regarding: lab results, diagnosis, need for follow-up Medical Desision Making - Diagnostic Testing Diagnostic test were ordered, analyzed, and reviewed by me: Yes Radiological Interpretation: Reviewed by me, Teleradiologist Report - Risk of complications Minimal Risk: Minimal risk of morbidity - Departure Departure Disposition: Home Clinical Impression: Nonspecific chest pain Condition: Stable Critical Care Time: No Referrals: LEE TORO MD [Primary Care Provider] - Follow up/PCP as directed Additional Instructions: Call your medication as prescribed. Follow-up with your primary care provider as an outpatient. Call them tomorrow, 03/30/2023 to make arranges for follow-up appointment in the next 3 to 5 days.
[2023-03-29] MEDS ORDERED: BABY ASPIRIN 81 MG CHEW ONE (13:47)
[2023-03-29] MEDS: BABY ASPIRIN 81 MG CHEW PO ONE (13:48)
[2023-03-29 13:54] LABS: Absolute Neutrophil Ct (ANC) 5.85 x10^3/uL (1.4-6.9); BASOPHIL % 0.5 % (0.0-0.4); Basophil (Absolute #) 0.04 x10^3/uL (0-0.4); Eosinophil % 1.5 % (0.00-5.0); Eosinophil (Absolute #) 0.12 x10^3/uL (0-0.5); Hematocrit 38.6 % (35-47); Hemoglobin 12.3 g/dL (12.0-16.0); IMMATURE GRAN # 0.02 x10^3u/L (0.00-0.03); IMMATURE GRAN % 0.2 % (0.00-0.4); Lymphocyte (Absolute #) 1.58 x10^3/uL (1.0-4.6); Lymphocytes % 19.2 % (24.0-44.0); Mean Cell Volume 93.9 fL (78-100); Mean Corpuscular Hemoglobin 29.9 pg (26-32); Mean Corpuscular Hgb Concent. 31.9 g/dL (32-36); Mean Platelet Volume 10.3 fL (7.5-11.0); Monocyte (Absolute #) 0.62 x10^3/uL (0.0-1.3); Monocytes % 7.5 % (0.0-12.0); Neutrophil % 71.1 % (36.0-66.0); Platelet Count 321 x10^3/uL (150-450); Red Blood Count 4.11 x10^6/uL (4.1-5.4); Red Cell Distribution Width 12.2 % (11.5-14.0); White Blood Count 8.2 x10^3/uL (4.0-10.5)
[2023-03-29 14:09] LABS: ALBUMIN 3.9 g/dL (3.5-5.0); ANION GAP 9.3 MEQ/L (5-15); BILIRUBIN,TOTAL 0.5 mg/dL (0.2-1.3); Calcium 8.9 mg/dL (8.4-10.2); Creatinine 1 0.6 mg/dL (0.52-1.04); EST GLOMERULAR FILTRATION RATE 107.9 ML/MIN; Potassium 4.1 mmol/L (3.5-5.1)
--- NOTE | 2023-03-29 16:38 | XRAY ---
Indication: Chest pain. Elevated d-dimer. History pulmonary embolus. Multiple contiguous axial images obtained through the chest using 80 cc Isovue 370 contrast. Comparison: June 22, 2020 Good opacification of the pulmonary arteries to include the lobar and segmental branches. No pulmonary embolus. Heart not enlarged. Aorta is normal in course and caliber. No pathologic mediastinal/hilar lymphadenopathy. Lungs again demonstrates minimal bilateral dependent atelectasis. No suspicious pulmonary mass/nodule, infiltrate, or effusion. Bony thorax intact with again minimal/mild degenerative changes throughout the spine. Limited upper abdomen again demonstrates fatty liver and cholecystectomy clips. Impression: 1. Negative pulmonary embolus. No new/acute cardiopulmonary abnormalities. 2. Again multilevel degenerative spondylosis and fatty liver.
[2023-03-29 17:05] VITALS: BP 101/65; PULSE 66; RESP 28; O2SAT 97
== END 2023-03-29 17:19 | disposition home or self-care (01) ==
LOC: ED 13:20
DX: R07.9 Chest pain, unspecified (principal); E11.9 Type 2 diabetes mellitus without complications; I10 Essential (primary) hypertension; E78.5 Hyperlipidemia, unspecified; Z79.84 Long term (current) use of oral hypoglycemic drugs; Z79.899 Other long term (current) drug therapy; Z28.310 Unvaccinated for COVID-19; Z86.16 Personal history of COVID-19
CPT/HCPCS: 36000; 36415; 71260; 80053; 84484; 85025; 85379; 93005; 94760; 99284; A9270-GY

== ENCOUNTER 2023-04-24 15:54 | Emergency (ER) | payer OTHER ==
--- NOTE | 2023-04-24 16:15 | ERPHSYRPT ---
- History of Present Illness Time Seen by Provider: 04/24/23 16:15 Source: patient, EMS, police Exam Limitations: no limitations Physician History: This is an obese 52-year-old white female patient who is suicidal. Patient's own words "I tried to commit suicide". She slapped herself in the face this morning. She cut herself in the left wrist using a steak knife. Patient has no homicidal ideation. Patient has increased stress over the last 5 days. She has been caring for her autistic son. Normally, the son lives with his father full- time. However, the father was arrested 5 days ago. Patient's states she cannot handle this any longer. Patient called to be brought to the emergency department for help. She thought maybe [facility] could help her for a couple of days. Patient denies headache. Patient denies chest pain. Patient denies shortness of breath. Patient denies abdominal pain. Timing/Duration: today Severity of Symptoms-Max: moderate Severity of Symptoms-Current: moderate Context related to: living circumstances Suicidal thoughts: attempt Associated Symptoms: anxiety, depressed, frustrated, injury (Cut her left wrist) Previous symptoms: same symptoms as today, no recent treatment Allergies/Adverse Reactions: blue dye Allergy (Verified 04/24/23 16:11) levothyroxine sodium [From Synthroid] Allergy (Verified 04/24/23 16:11) Home Medications: PARoxetine HCL [Paroxetine HCl] 20 mg PO DAILY 10/25/18 [History] Albuterol Sulfate [Albuterol Sulfate Hfa] 2 puffs IH BID 01/04/22 [History] Cholecalciferol (Vitamin D3) [Vitamin D] 1 tab PO WEEKLY 01/04/22 [History] Levothyroxine Sodium [Tirosint] 200 mcg PO DAILY 01/04/22 [History] Omeprazole 20 mg PO DAILY 01/04/22 [History] Pravastatin Sodium 20 mg PO DAILY 01/04/22 [History] Lisinopril 5 mg [Zestril 5 MG] 5 mg PO DAILY 07/17/22 [History] Cariprazine HCl [Vraylar] 4.5 mg PO DAILY 02/22/23 [History] Metformin HCl 500 mg [Glucophage 500 MG] 1 tab PO DAILY 03/20/23 [History] Isosorbide Mononitrate 30 mg [Imdur 30 MG] 30 mg PO DAILY 04/24/23 [History] Hx Tetanus, Diphtheria Vaccination/Date Given: No Hx Influenza Vaccination/Date Given: No Hx Pneumococcal Vaccination/Date Given: No Travel Risk - International Travel Have you traveled outside of the country in past 3 weeks: No - Coronavirus Screening Are you exhibiting any of the following symptoms?: No Close contact with a COVID-19 positive Pt in past 14-21 Days: No - Vaccine Status Have you recieved a Covid-19 vaccination: No - Past Medical History Pertinent Past Medical History: Yes Neurological History: No Pertinent History ENT History: No Pertinent History Cardiac History: Arrhythmia, Peripheral Vascular Disease Respiratory History: Sleep Apnea, Other, COPD, Asthma, Bronchitis Endocrine Medical History: No Pertinent History Musculoskeletal History: Osteoarthritis GI Medical History: GERD, Gallbladder Disease History: No Pertinent History Psycho-Social History: Anxiety, Bipolar, Depression Female Reproductive Disorders: No Pertinent History Other Medical History: Covid in August 2021 - Past Surgical History Past Surgical History: Yes Neuro Surgical History: No Pertinent History Cardiac: Other Respiratory: No Pertinent History Gastrointestinal: Cholecystectomy Genitourinary: No Pertinent History Musculoskeletal: No Pertinent History Female Surgical History: Other Other Surgical History: thyroid removed with "radioactive iodine pill". peripheral artery 2021. vaginal dysplasia surgery - Social History Smoking Status: Former smoker Exposure to second hand smoke: No Drug Use: none Patient Lives Alone: Yes Significant Family History: no pertinent family hx - Review of Systems Constitutional: No Symptoms Eyes: No Symptoms Ears, Nose, & Throat: No Symptoms Respiratory: No Symptoms Cardiac: No Symptoms Abdominal/Gastrointestinal: No Symptoms Genitourinary Symptoms: No Symptoms Musculoskeletal: No Symptoms Skin: No Symptoms Neurological: No Symptoms Psychological: Anxiety, Depression, Suicidal Ideations Endocrine: No Symptoms Hematologic/Lymphatic: No Symptoms Immunological/Allergic: No Symptoms All Other Systems: Reviewed and Negative - Nursing Vital Signs Nursing Vital Signs: Initial Vital Signs Pulse Rate 84 04/24/23 16:18 Respiratory Rate 19 04/24/23 16:18 Blood Pressure 101/81 04/24/23 16:18 O2 Sat by Pulse Oximetry 97 04/24/23 16:18 Pain Scale Pain Intensity 0 - Physical Exam General Appearance: no apparent distress, alert, anxiety, obese Eyes, Ears, Nose, Throat Exam: normal ENT inspection, moist mucous membranes Neck Exam: normal inspection, non-tender, supple, full range of motion Respiratory Exam: normal breath sounds, lungs clear, airway intact, No chest tenderness, No respiratory distress Cardiovascular Exam: regular rate/rhythm, normal heart sounds, normal peripheral pulses Gastrointestinal/Abdominal Exam: soft, normal bowel sounds, No tenderness Extremities Exam: normal inspection, normal range of motion, No evidence of injury Current Suicidality: has suicide plan (Cut herself) Neurological Exam: divine healer II-XII nml as tested, oriented x 3, depressed affect Appearance: appropriate appearance, impaired insight Behavior/Eye Contact/Speech: alert & cooperative, good eye contact, normal speech Thoughts/Hallucinations: no apparent hallucination Skin Exam: normal color, warm, dry SpO2 Interpretation: normal O2 Delivery: Room Air - Course Nursing assessment & vital signs reviewed: Yes EKG Interpreted by Me: RATE (100), Sinus Tach, NORMAL AXIS, NORMAL INTERVALS, NORMAL QRS, NORMAL ST-T, Other (No acute ischemia) Ordered Tests: Active Orders 24 hr Category Date Time Status Clean Catch Urine Specimen STAT Care 04/24/23 16:15 Active EKG-ER Only STAT Care 04/24/23 16:15 Active ACETAMINOPHEN Stat Lab 04/24/23 16:25 Completed CBC W DIFF Stat Lab 04/24/23 16:25 Completed CMP Stat Lab 04/24/23 16:25 Completed ETHYL ALCOHOL Stat Lab 04/24/23 16:25 Completed SALICYLATE Stat Lab 04/24/23 16:25 Completed UA W/RFX UR CULTURE Stat Lab 04/24/23 17:00 Completed Urine Triage Profile Stat Lab 04/24/23 16:16 Completed Lab/Rad Data: Laboratory Result Diagrams 04/24/23 16:25 04/24/23 16:25 Laboratory Results 04/24/23 04/24/23 04/24/23 Range/Units 18:50 17:00 16:25 WBC (4.0-10.5) x10^3/uL RBC (4.1-5.4) x10^6/uL Hgb (12.0-16.0) g/dL Hct (35-47) % MCV (78-100) fL MCH (26-32) pg MCHC (32-36) g/dL RDW (11.5-14.0) % Plt Count (150-450) x10^3/uL MPV (7.5-11.0) fL Gran % (36.0-66.0) % Immature Gran % (Auto) (0.00-0.4) % Nucleat RBC Rel Count (0.00-0.1) % Eos # (Auto) (0-0.5) x10^3/uL Immature Gran # (Auto) (0.00-0.03) x10^3u/L Absolute Lymphs (auto) (1.0-4.6) x10^3/uL Absolute Monos (auto) (0.0-1.3) x10^3/uL Absolute Nucleated RBC (0.00-0.01) x10^3u/L Lymphocytes % (24.0-44.0) % Monocytes % (0.0-12.0) % Eosinophils % (0.00-5.0) % Basophils % (0.0-0.4) % Absolute Granulocytes (1.4-6.9) x10^3/uL Basophils # (0-0.4) x10^3/uL Sodium 140 (135-145) mmol/L Potassium 3.8 (3.5-5.1) mmol/L Chloride 102 (98-107) mmol/L Carbon Dioxide 31 H (22-30) mmol/L Anion Gap 11.7 (5-15) MEQ/L BUN 7 (7-17) mg/dL Creatinine 0.74 (0.52-1.04) mg/dL Estimated GFR 97.3 ML/MIN Glucose 119 H (74-106) mg/dL Calcium 9.5 (8.4-10.2) mg/dL Total Bilirubin 0.30 (0.2-1.3) mg/dL AST 29 (14-36) U/L ALT 17 (0-35) U/L Alkaline Phosphatase 177 H (38-126) U/L Serum Total Protein 7.5 (6.3-8.2) g/dL Albumin 4.5 (3.5-5.0) g/dL Urine Color Yellow (Yellow) Urine Appearance Clear (Clear) Urine pH 7.0 (4.6-8.0) Ur Specific [place] 1.010 (1.005-1.030) Urine Protein Negative (Negative) Urine Glucose (UA) Negative (Negative) mg/dL Urine Ketones Negative (Negative) Urine Blood Negative (Negative) Urine Nitrite Negative (Negative) Urine Bilirubin Negative (Negative) Urine Urobilinogen 1.0 A (0.2) mg/dL Ur Leukocyte Esterase Trace A (Negative) U Hyaline Cast (Auto) NONE SEEN (0-2) /LPF Urine Microscopic RBC 0-2 (0-5) /HPF Urine Microscopic WBC 0-2 (0-5) /HPF Ur Epithelial Cells Few (None Seen) /HPF Urine Bacteria Rare A (None Seen) /HPF Urine Culture Reflexed NO (NO) Salicylates 3.1 (2-20) mg/dL Urine Opiates Level (NEGATIVE) Ur Methadone (NEGATIVE) Acetaminophen < 10 L (10-30) ug/ml Urine Barbiturates (NEGATIVE) Ur Phencyclidine (PCP) (NEGATIVE) Urine Amphetamine (NEGATIVE) U Benzodiazepine Level (NEGATIVE) Urine Cocaine (NEGATIVE) Urine Marijuana (THC) (NEGATIVE) Ethyl Alcohol < 10 (0-10) mg/dL Influenza Type A Ag NEGATIVE (NEGATIVE) Influenza Type B Ag NEGATIVE (NEGATIVE) RSV (PCR) NEGATIVE (NEGATIVE) SARS-CoV-2 (PCR) NEGATIVE (NEGATIVE) 04/24/23 04/24/23 Range/Units 16:25 16:16 WBC 8.0 (4.0-10.5) x10^3/uL RBC 4.57 (4.1-5.4) x10^6/uL Hgb 13.3 (12.0-16.0) g/dL Hct 42.5 (35-47) % MCV 93.0 (78-100) fL MCH 29.1 (26-32) pg MCHC 31.3 L (32-36) g/dL RDW 11.9 (11.5-14.0) % Plt Count 358 (150-450) x10^3/uL MPV 10.0 (7.5-11.0) fL Gran % 69.4 H (36.0-66.0) % Immature Gran % (Auto) 0.2 (0.00-0.4) % Nucleat RBC Rel Count 0.0 (0.00-0.1) % Eos # (Auto) 0.01 (0-0.5) x10^3/uL Immature Gran # (Auto) 0.02 (0.00-0.03) x10^3u/L Absolute Lymphs (auto) 1.57 (1.0-4.6) x10^3/uL Absolute Monos (auto) 0.83 (0.0-1.3) x10^3/uL Absolute Nucleated RBC 0.00 (0.00-0.01) x10^3u/L Lymphocytes % 19.6 L (24.0-44.0) % Monocytes % 10.3 (0.0-12.0) % Eosinophils % 0.1 (0.00-5.0) % Basophils % 0.4 (0.0-0.4) % Absolute Granulocytes 5.56 (1.4-6.9) x10^3/uL Basophils # 0.03 (0-0.4) x10^3/uL Sodium (135-145) mmol/L Potassium (3.5-5.1) mmol/L Chloride (98-107) mmol/L Carbon Dioxide (22-30) mmol/L Anion Gap (5-15) MEQ/L BUN (7-17) mg/dL Creatinine (0.52-1.04) mg/dL Estimated GFR ML/MIN Glucose (74-106) mg/dL Calcium (8.4-10.2) mg/dL Total Bilirubin (0.2-1.3) mg/dL AST (14-36) U/L ALT (0-35) U/L Alkaline Phosphatase (38-126) U/L Serum Total Protein (6.3-8.2) g/dL Albumin (3.5-5.0) g/dL Urine Color (Yellow) Urine Appearance (Clear) Urine pH (4.6-8.0) Ur Specific Rio (1.005-1.030) Urine Protein (Negative) Urine Glucose (UA) (Negative) mg/dL Urine Ketones (Negative) Urine Blood (Negative) Urine Nitrite (Negative) Urine Bilirubin (Negative) Urine Urobilinogen (0.2) mg/dL Ur Leukocyte Esterase (Negative) U Hyaline Cast (Auto) (0-2) /LPF Urine Microscopic RBC (0-5) /HPF Urine Microscopic WBC (0-5) /HPF Ur Epithelial Cells (None Seen) /HPF Urine Bacteria (None Seen) /HPF Urine Culture Reflexed (NO) Salicylates (2-20) mg/dL Urine Opiates Level NEGATIVE (NEGATIVE) Ur Methadone NEGATIVE (NEGATIVE) Acetaminophen (10-30) ug/ml Urine Barbiturates NEGATIVE (NEGATIVE) Ur Phencyclidine (PCP) NEGATIVE (NEGATIVE) Urine Amphetamine NEGATIVE (NEGATIVE) U Benzodiazepine Level NEGATIVE (NEGATIVE) Urine Cocaine NEGATIVE (NEGATIVE) Urine Marijuana (THC) NEGATIVE (NEGATIVE) Ethyl Alcohol (0-10) mg/dL Influenza Type A Ag (NEGATIVE) Influenza Type B Ag (NEGATIVE) RSV (PCR) (NEGATIVE) SARS-CoV-2 (PCR) (NEGATIVE) - Progress Progress: unchanged Progress Note: 04/24/23 18:47 This patient's medical issue is 1 of high complexity. Level complexity in the workup performed is based on review of the patient's past medical history, review patient's medication list, review of patient drug allergy list, history present illness and physical findings on examination. This patient workup includes twelve-lead EKG, salicylate level, acetaminophen level, ethyl alcohol level, COVID-19/viral swabs, urinalysis, urine drug triage, twelve-lead EKG, CBC, CMP. 04/24/23 22:10 I reviewed and interpreted the patient's laboratory data results. Patient has no acute, emergent ankle issue based on the laboratory data results. Patient was accepted for inpatient management/care at [facility]. Dr. Caraballo is the accepting physician Counseled pt/family regarding: lab results, diagnosis, need for follow-up Medical Desision Making - Diagnostic Testing Diagnostic test were ordered, analyzed, and reviewed by me: Yes - Risk of complications Low Risk: Low risk of morbidity from additional dx testing or treatment - Departure Departure Disposition: Transfer Clinical Impression: Suicidal ideation Condition: Stable Critical Care Time: No Referrals: LEE TORO MD [Primary Care Provider] - Follow up/PCP as directed
[2023-04-24 16:32] LABS: Absolute Neutrophil Ct (ANC) 5.56 x10^3/uL (1.4-6.9); BASOPHIL % 0.4 % (0.0-0.4); Basophil (Absolute #) 0.03 x10^3/uL (0-0.4); Eosinophil % 0.1 % (0.00-5.0); Eosinophil (Absolute #) 0.01 x10^3/uL (0-0.5); Hematocrit 42.5 % (35-47); Hemoglobin 13.3 g/dL (12.0-16.0); IMMATURE GRAN # 0.02 x10^3u/L (0.00-0.03); IMMATURE GRAN % 0.2 % (0.00-0.4); Lymphocyte (Absolute #) 1.57 x10^3/uL (1.0-4.6); Lymphocytes % 19.6 % (24.0-44.0); Mean Corpuscular Hemoglobin 29.1 pg (26-32); Mean Corpuscular Hgb Concent. 31.3 g/dL (32-36); Monocyte (Absolute #) 0.83 x10^3/uL (0.0-1.3); Monocytes % 10.3 % (0.0-12.0); Neutrophil % 69.4 % (36.0-66.0); Platelet Count 358 x10^3/uL (150-450); Red Blood Count 4.57 x10^6/uL (4.1-5.4); Red Cell Distribution Width 11.9 % (11.5-14.0)
[2023-04-24 16:56] LABS: ACETAMINOPHEN < 10 ug/ml (10-30); ALBUMIN 4.5 g/dL (3.5-5.0); ALKALINE PHOSPHATASE 177 U/L (38-126); ANION GAP 11.7 MEQ/L (5-15); BLOOD UREA NITROGEN 7 mg/dL (7-17); CHLORIDE 102 mmol/L (98-107); Calcium 9.5 mg/dL (8.4-10.2); Carbon Dioxide 31 mmol/L (22-30); Creatinine 1 0.74 mg/dL (0.52-1.04); EST GLOMERULAR FILTRATION RATE 97.3 ML/MIN; ETHYL ALCOHOL < 10 mg/dL (0-10); Glucose 119 mg/dL (74-106); Potassium 3.8 mmol/L (3.5-5.1); SALICYLATE 3.1 mg/dL (2-20); SGOT/AST 29 U/L (14-36); SGPT/ALT 17 U/L (0-35); SODIUM 140 mmol/L (135-145); Total Protein 7.5 g/dL (6.3-8.2)
[2023-04-24 17:23] LABS: Appearance Clear (Clear); Bilirubin Negative (Negative); Blood Negative (Negative); Glucose, Urine Negative (Negative); Ketones Negative (Negative); Leukocyte Esterase Trace (Negative); Nitrite Negative (Negative); Protein,Urine Dip Negative (Negative)
[2023-04-24 17:44] LABS: Amphetamine,Urine NEGATIVE (NEGATIVE); Barbiturate,Urine NEGATIVE (NEGATIVE); Benzodiazepine,Urine NEGATIVE (NEGATIVE); Cocaine,Urine NEGATIVE (NEGATIVE); Methadone,Urine NEGATIVE (NEGATIVE); Opiate,Urine NEGATIVE (NEGATIVE); PCP,Urine NEGATIVE (NEGATIVE); THC,Urine NEGATIVE (NEGATIVE)
[2023-04-24 17:48] LABS: Epithelial Cells Few /HPF (None Seen); Hyaline Casts NONE SEEN /LPF (0-2)
[2023-04-24 17:49] LABS: ADD URINE CULTURE? NO (NO); Bacteria Rare /HPF (None Seen); RBC 0-2 /HPF (0-5); WBC 0-2 /HPF (0-5)
[2023-04-24 19:33] LABS: INFLUENZA A NEGATIVE (NEGATIVE); INFLUENZA B NEGATIVE (NEGATIVE); RESPIRATORY SYNCTIAL VIRUS NEGATIVE (NEGATIVE); SARS-CoV-2 Xpert Express NEGATIVE (NEGATIVE)
[2023-04-25 00:11] VITALS: BP 112/70; PULSE 96; RESP 20; O2SAT 99
== END 2023-04-25 00:30 ==
LOC: ED 15:54
DX: R45.851 Suicidal ideations (principal); Z63.79 Other stressful life events affecting family and household; Z79.84 Long term (current) use of oral hypoglycemic drugs; Z79.899 Other long term (current) drug therapy; Z28.310 Unvaccinated for COVID-19; Z86.16 Personal history of COVID-19
CPT/HCPCS: 0241U; 36415; 80053; 80143; 80179; 80307; 81001; 82077; 85025; 93005; 99285

== ENCOUNTER 2024-06-10 14:19 | Emergency (ER) | payer OTHER ==
--- NOTE | 2024-06-10 14:22 | ERPHSYRPT ---
- History of Present Illness Time Seen by Provider: 06/10/24 14:22 Source: patient, family Exam Limitations: no limitations Physician History: This is an obese 53-year-old white female patient who arrives by private vehicle secondary to right facial drooping that has been present for 1 week at least. She called her primary care physician's office and could not get an appointment. They called her back and told her to come to the emergency department for evaluation. Patient denies headache. Patient denies visual changes. Patient denies chest pain. Patient has been taking her medications as prescribed. There has been no recent changes to her medication. The patient had a similar complaint in February 2023. Patient denies any pain. There are no symptoms of numbness or weakness. Patient has a history of arrhythmia, peripheral vascular disease, COPD, asthma, anxiety, bipolar disorder, depression, sleep apnea, hypertension, hyperlipidemia, diabetes, hypothyroidism. Her NIH score is calculated is 0 Timing/Duration: week(s) (Over 1 week) Severity: mild (Present at all) Character of Deficits: Right Facial (Patient states right facial drooping) Deficits: no difficulties Baseline/Normal Cognition: alert oriented x 3 Current Cognition: alert oriented x 3 Baseline Gait: walks w/o assistance Associated Symptoms: denies symptoms, No confusion, No loss of consciousness, No numbness/tingling in legs/feet, No seizures, No slurred speech, No vision changes, No chest pain, No headache Allergies/Adverse Reactions: blue dye Allergy (Verified 04/24/23 16:11) levothyroxine sodium [From Synthroid] Allergy (Verified 04/24/23 16:11) Home Medications: PARoxetine HCL [Paroxetine HCl] 20 mg PO DAILY 10/25/18 [History] Albuterol Sulfate [Albuterol Sulfate Hfa] 2 puffs IH BID 01/04/22 [History] Levothyroxine Sodium [Tirosint] 200 mcg PO DAILY 01/04/22 [History] Pravastatin Sodium 20 mg PO DAILY 01/04/22 [History] Lisinopril 5 mg [Zestril 5 MG] 5 mg PO DAILY 07/17/22 [History] Cariprazine HCl [Vraylar] 4.5 mg PO DAILY 02/22/23 [History] Isosorbide Mononitrate 30 mg [Imdur 30 MG] 30 mg PO DAILY 04/24/23 [History] Hx Tetanus, Diphtheria Vaccination/Date Given: No Hx Influenza Vaccination/Date Given: No Hx Pneumococcal Vaccination/Date Given: No Travel Risk - International Travel Have you traveled outside of the country in past 3 weeks: No - Emerging Infectious Disease Are you exhibiting symptoms associated with any current EIDs: No - Review of Systems Constitutional: No Symptoms Eyes: No Symptoms Ears, Nose, & Throat: No Symptoms Respiratory: No Symptoms Cardiac: No Symptoms Abdominal/Gastrointestinal: No Symptoms Genitourinary Symptoms: No Symptoms Musculoskeletal: No Symptoms Skin: No Symptoms Neurological: Other (Patient complained of greater than 1 week history of right facial droop) Psychological: No Symptoms Endocrine: No Symptoms Hematologic/Lymphatic: No Symptoms Immunological/Allergic: No Symptoms All Other Systems: Reviewed and Negative - Past Medical History Pertinent Past Medical History: Yes Neurological History: No Pertinent History ENT History: No Pertinent History Cardiac History: Arrhythmia, Peripheral Vascular Disease Respiratory History: Sleep Apnea, Other, COPD, Asthma, Bronchitis Endocrine Medical History: No Pertinent History Musculoskeletal History: Osteoarthritis GI Medical History: GERD, Gallbladder Disease History: No Pertinent History Psycho-Social History: Anxiety, Bipolar, Depression Female Reproductive Disorders: No Pertinent History Other Medical History: Covid in August 2021 - Past Surgical History Past Surgical History: Yes Neuro Surgical History: No Pertinent History Cardiac: Other Respiratory: No Pertinent History Gastrointestinal: Cholecystectomy Genitourinary: No Pertinent History Musculoskeletal: No Pertinent History Female Surgical History: Other Other Surgical History: thyroid removed with "radioactive iodine pill". peripheral artery 2021. vaginal dysplasia surgery Significant Family History: no pertinent family hx - Social History Smoking Status: Former smoker Exposure to second hand smoke: No Drug Use: none Patient Lives Alone: Yes - Nursing Vital Signs Nursing Vital Signs: Initial Vital Signs Temperature 97.2 F 06/10/24 14:26 Pulse Rate 70 06/10/24 14:26 Respiratory Rate 18 06/10/24 14:26 Blood Pressure 106/66 06/10/24 14:26 O2 Sat by Pulse Oximetry 98 06/10/24 14:26 Pain Scale Pain Intensity 0 - Geovanny Coma Scale Best Eye Response ([place]): (4) open spontaneously Best Verbal Response ([place]): (5) oriented Best Motor Response (Geovanny): (6) obeys commands Geovanny Total: 15 - Physical Exam General Appearance: no apparent distress, alert, anxiety Eye Exam: bilateral eye: normal inspection, PERRL, EOMI Ears, Nose, Throat Exam: normal ENT inspection, moist mucous membranes Neck Exam: normal inspection, non-tender, supple, full range of motion Respiratory: normal breath sounds, lungs clear, airway intact, No chest tenderness, No respiratory distress Cardiovascular: regular rate/rhythm, normal heart sounds, normal peripheral pulses Gastrointestinal: soft, normal bowel sounds, No tenderness Pelvic Exam: not done Rectal Exam: not done Back Exam: normal inspection, normal range of motion, vertebral tenderness, No CVA tenderness Extremity Exam: normal inspection, normal range of motion, pelvis stable Mental Status: alert, oriented x 3, 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 On my examination she does not appear to have a facial droop of either sides.) Coordination/Gait: normal finger to nose, normal gait, normal cerebellar function Motor/Sensory: no motor deficit, no sensory deficit, no pronator drift Skin Exam: normal color, warm, dry SpO2 Interpretation: normal O2 Delivery: Room Air - Course Nursing assessment & vital signs reviewed: Yes EKG Interpreted by Me: RATE (66), Sinus Rhythm, NORMAL AXIS, NORMAL QRS, NORMAL ST-T, Other (Borderline prolonged IA interval. QTc is 431. No acute ischemic changes on today's twelve-lead EKG. When compared to twelve-lead EKG 04/24/2023, there is improvement in todays EKG.) Ordered Tests: Active Orders 24 hr Category Date Time Status EKG-ER Only STAT Care 06/10/24 15:10 Active IV Insertion STAT Care 06/10/24 15:10 Active NPO (ED) STAT Care 06/10/24 15:10 Active Pulse Oximetry (ED) STAT Care 06/10/24 15:10 Active HEAD WITHOUT CONTRAST [CT] Stat Exams 06/10/24 15:11 Completed CBC W DIFF Stat Lab 06/10/24 15:05 Completed CMP Stat Lab 06/10/24 15:05 Completed MAGNESIUM Stat Lab 06/10/24 15:05 Completed TSH, 3RD Generation Stat Lab 06/10/24 15:05 Completed UA W/RFX UR CULTURE Stat Lab 06/10/24 15:10 Completed Lab/Rad Data: Laboratory Result Diagrams 06/10/24 15:05 06/10/24 15:05 Laboratory Results 06/10/24 06/10/24 06/10/24 Range/Units 15:10 15:05 15:05 WBC 5.3 (3.98-10.04) x10^3/uL RBC 4.25 (3.93-5.22) x10^6/uL Hgb 12.7 (11.2-15.7) g/dL Hct 39.7 (34.1-44.9) % MCV 93.4 (79.4-94.8) fL MCH 29.9 (25.6-32.2) pg MCHC 32.0 L (32.2-35.5) g/dL RDW 11.9 (11.7-14.4) % Plt Count 263 (182-369) x10^3/uL MPV 10.3 (9.4-12.3) fL Gran % 48.6 (34.0-71.1) % Immature Gran % (Auto) 0.4 (0.001-0.429) % Nucleat RBC Rel Count 0.0 (0.00-0.2) % Eos # (Auto) 0.11 (0.04-0.36) x10^3/uL Immature Gran # (Auto) 0.02 (0.001-0.031) x10^3u/L Absolute Lymphs (auto) 1.70 (1.18-3.74) x10^3/uL Absolute Monos (auto) 0.83 (0.24-0.86) x10^3/uL Absolute Nucleated RBC 0.00 (0.00-0.012) x10^3u/L Lymphocytes % 32.3 (19.3-51.7) % Monocytes % 15.8 H (4.7-12.5) % Eosinophils % 2.1 (0.7-5.8) % Basophils % 0.8 (0.1-1.2) % Absolute Granulocytes 2.56 (1.56-6.13) x10^3/uL Basophils # 0.04 (0.01-0.08) x10^3/uL Sodium 142 (135-145) mmol/L Potassium 3.6 (3.5-5.1) mmol/L Chloride 102 (98-107) mmol/L Carbon Dioxide 29 (22-30) mmol/L Anion Gap 13.8 (5-15) MEQ/L BUN 9 (7-17) mg/dL Creatinine 0.59 (0.52-1.04) mg/dL Estimated GFR 107.7 ML/MIN Glucose 67 L (74-106) mg/dL Calcium 8.8 (8.4-10.2) mg/dL Magnesium 1.9 (1.6-2.3) mg/dL Total Bilirubin 0.20 (0.2-1.3) mg/dL AST 24 (14-36) U/L ALT 10 (0-35) U/L Alkaline Phosphatase 60 (38-126) U/L Serum Total Protein 6.8 (6.3-8.2) g/dL Albumin 3.9 (3.5-5.0) g/dL Free T4 (0.78-2.19) ng/dL TSH 3rd Generation 2.319 (0.470-4.680) mIU/L Urine Color Yellow (Yellow) Urine Appearance Clear (Clear) Urine pH 7.0 (4.6-8.0) Ur Specific Dickinson 1.015 (1.005-1.030) Urine Protein Negative (Negative) Urine Glucose (UA) Negative (Negative) mg/dL Urine Ketones Negative (Negative) Urine Blood Negative (Negative) Urine Nitrite Negative (Negative) Urine Bilirubin Negative (Negative) Urine Urobilinogen 1.0 A (0.2) mg/dL Ur Leukocyte Esterase Small A (Negative) U Hyaline Cast (Auto) NONE SEEN (0-2) /LPF Urine Microscopic RBC 0-2 (0-5) /HPF Urine Microscopic WBC 0-2 (0-5) /HPF Ur Epithelial Cells Rare (None Seen) /HPF Urine Bacteria Rare A (None Seen) /HPF Urine Culture Reflexed NO (NO) 06/10/24 Range/Units 15:05 WBC (3.98-10.04) x10^3/uL RBC (3.93-5.22) x10^6/uL Hgb (11.2-15.7) g/dL Hct (34.1-44.9) % MCV (79.4-94.8) fL MCH (25.6-32.2) pg MCHC (32.2-35.5) g/dL RDW (11.7-14.4) % Plt Count (182-369) x10^3/uL MPV (9.4-12.3) fL Gran % (34.0-71.1) % Immature Gran % (Auto) (0.001-0.429) % Nucleat RBC Rel Count (0.00-0.2) % Eos # (Auto) (0.04-0.36) x10^3/uL Immature Gran # (Auto) (0.001-0.031) x10^3u/L Absolute Lymphs (auto) (1.18-3.74) x10^3/uL Absolute Monos (auto) (0.24-0.86) x10^3/uL Absolute Nucleated RBC (0.00-0.012) x10^3u/L Lymphocytes % (19.3-51.7) % Monocytes % (4.7-12.5) % Eosinophils % (0.7-5.8) % Basophils % (0.1-1.2) % Absolute Granulocytes (1.56-6.13) x10^3/uL Basophils # (0.01-0.08) x10^3/uL Sodium (135-145) mmol/L Potassium (3.5-5.1) mmol/L Chloride (98-107) mmol/L Carbon Dioxide (22-30) mmol/L Anion Gap (5-15) MEQ/L BUN (7-17) mg/dL Creatinine (0.52-1.04) mg/dL Estimated GFR ML/MIN Glucose (74-106) mg/dL Calcium (8.4-10.2) mg/dL Magnesium (1.6-2.3) mg/dL Total Bilirubin (0.2-1.3) mg/dL AST (14-36) U/L ALT (0-35) U/L Alkaline Phosphatase (38-126) U/L Serum Total Protein (6.3-8.2) g/dL Albumin (3.5-5.0) g/dL Free T4 1.87 (0.78-2.19) ng/dL TSH 3rd Generation (0.470-4.680) mIU/L Urine Color (Yellow) Urine Appearance (Clear) Urine pH (4.6-8.0) Ur Specific Dickinson (1.005-1.030) Urine Protein (Negative) Urine Glucose (UA) (Negative) mg/dL Urine Ketones (Negative) Urine Blood (Negative) Urine Nitrite (Negative) Urine Bilirubin (Negative) Urine Urobilinogen (0.2) mg/dL Ur Leukocyte Esterase (Negative) U Hyaline Cast (Auto) (0-2) /LPF Urine Microscopic RBC (0-5) /HPF Urine Microscopic WBC (0-5) /HPF Ur Epithelial Cells (None Seen) /HPF Urine Bacteria (None Seen) /HPF Urine Culture Reflexed (NO) - Progress Progress: unchanged Progress Note: 06/10/24 15:16 My medical decision making and the assignment of moderate complexity of this patient's medical issue today is based on review of the patient's past medical history, review the patient's medication list, reviewed patient drug allergy list, history present illness and physical findings on examination. The patient workup includes placement of intravenous line, CBC, CMP, magnesium level, twelve-lead EKG, urinalysis, free T4, TSH and CT scan of the head without contrast. Differential diagnosis includes but is not limited to acute intracranial abnormality, electrolyte abnormalities, arrhythmia, thyroid abnormalities, anxiety about health, urinary tract infection 06/10/24 16:07 I interpreted the patient's laboratory data results. Based on the laboratory data results, there are no acute, emergent medical findings. 06/10/24 16:[address] scan of the head without contrast was interpreted by the radiologist and I reviewed the impression. 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 New paranasal sinus disease Counseled pt/family regarding: lab results, diagnosis, need for follow-up, rad results Medical Desision Making - Diagnostic Testing Diagnostic test were ordered, analyzed, and reviewed by me: Yes Radiological Interpretation: Reviewed by me, Teleradiologist Report - Risk of complications The pt has a mod risk of morbidity or mortality based on: Need for prescription drug management - Departure Departure Disposition: Home Clinical Impression: Sinusitis Condition: Stable Critical Care Time: No Referrals: LEE TORO MD [Primary Care Provider, [facility]] - Follow up/PCP as directed Additional Instructions: Drink plenty of fluids. Take your antibiotics and other medications as prescribed. Call your primary care provider tomorrow, 06/11/2024, to make arrangements for follow-up appointment for further evaluation and management. Prescriptions: Amoxicillin 500 mg Cap [Amoxil 500 mg] 500 mg PO TID #21 cap
[2024-06-10 14:32] VITALS: TEMP 97.2
[2024-06-10 15:20] LABS: Absolute Neutrophil Ct (ANC) 2.56 x10^3/uL (1.56-6.13); BASOPHIL % 0.8 % (0.1-1.2); Basophil (Absolute #) 0.04 x10^3/uL (0.01-0.08); Eosinophil % 2.1 % (0.7-5.8); Eosinophil (Absolute #) 0.11 x10^3/uL (0.04-0.36); Hematocrit 39.7 % (34.1-44.9); Hemoglobin 12.7 g/dL (11.2-15.7); IMMATURE GRAN # 0.02 x10^3u/L (0.001-0.031); IMMATURE GRAN % 0.4 % (0.001-0.429); Lymphocytes % 32.3 % (19.3-51.7); Mean Cell Volume 93.4 fL (79.4-94.8); Mean Corpuscular Hemoglobin 29.9 pg (25.6-32.2); Mean Platelet Volume 10.3 fL (9.4-12.3); Monocyte (Absolute #) 0.83 x10^3/uL (0.24-0.86); Monocytes % 15.8 % (4.7-12.5); Neutrophil % 48.6 % (34.0-71.1); Platelet Count 263 x10^3/uL (182-369); Red Blood Count 4.25 x10^6/uL (3.93-5.22); Red Cell Distribution Width 11.9 % (11.7-14.4); White Blood Count 5.3 x10^3/uL (3.98-10.04)
[2024-06-10 15:28] LABS: Appearance Clear (Clear); Bacteria Rare /HPF (None Seen); Bilirubin Negative (Negative); Blood Negative (Negative); Epithelial Cells Rare /HPF (None Seen); Glucose, Urine Negative (Negative); Hyaline Casts NONE SEEN /LPF (0-2); Ketones Negative (Negative); Leukocyte Esterase Small (Negative); Nitrite Negative (Negative); Protein,Urine Dip Negative (Negative); RBC 0-2 /HPF (0-5); Specific Gravity 1.015 (1.005-1.030); WBC 0-2 /HPF (0-5)
[2024-06-10 15:57] LABS: ALBUMIN 3.9 g/dL (3.5-5.0); ANION GAP 13.8 MEQ/L (5-15); BILIRUBIN,TOTAL 0.2 mg/dL (0.2-1.3); Calcium 8.8 mg/dL (8.4-10.2); Creatinine 1 0.59 mg/dL (0.52-1.04); EST GLOMERULAR FILTRATION RATE 107.7 ML/MIN; MAGNESIUM 1.9 mg/dL (1.6-2.3); Potassium 3.6 mmol/L (3.5-5.1); TSH, 3RD Generation 2.319 mIU/L (0.470-4.680); Total Protein 6.8 g/dL (6.3-8.2)
--- NOTE | 2024-06-10 16:40 | XRAY ---
Indication: Right facial droop on weeks. Multiple contiguous axial images obtained through the head without contrast. Comparison: February 22, 2023 Again age-appropriate global atrophy, minimal periventricular degenerative micro-ischemia, and subcentimeter remote infarct right posterior centrum semiovale. No acute intracranial hemorrhage, abnormal extra-axial fluid collection, or mass effect. Fourth ventricle is midline without hydrocephalus. Bony calvarium intact. Minimal/mild mucosal thickening maxillary, ethmoid, and sphenoid sinuses bilaterally without fluid leveling. Mastoid air cells are clear. Impression: Again nonacute senile brain with stable subcentimeter remote infarct right centrum semiovale. New paranasal sinus disease.
[2024-06-10 16:56] VITALS: BP 99/64; PULSE 70; RESP 18; O2SAT 98
== END 2024-06-10 16:59 | disposition home or self-care (01) ==
LOC: ED 14:19
DX: J32.8 Other chronic sinusitis (principal); R29.810 Facial weakness; I10 Essential (primary) hypertension; E78.5 Hyperlipidemia, unspecified; E11.9 Type 2 diabetes mellitus without complications; Z79.899 Other long term (current) drug therapy
CPT/HCPCS: 36415; 70450; 80053; 81001; 83735; 84439; 84443; 85025; 93005; 94760; 99284; 99285

== ENCOUNTER 2024-12-15 13:30 | Emergency (ER) | payer OTHER ==
[2024-12-15 13:47] VITALS: TEMP 97
[2024-12-15] MEDS ORDERED: BABY ASPIRIN 81 MG CHEW ONE (13:49)
[2024-12-15] MEDS: BABY ASPIRIN 81 MG CHEW PO ONE (13:51)
[2024-12-15 13:56] LABS: BASOPHIL % 0.4 % (0.1-1.2); Basophil (Absolute #) 0.03 x10^3/uL (0.01-0.08); Eosinophil (Absolute #) 0.05 x10^3/uL (0.04-0.36); Hematocrit 40.6 % (34.1-44.9); Hemoglobin 13.2 g/dL (11.2-15.7); IMMATURE GRAN # 0.02 x10^3u/L (0.001-0.031); IMMATURE GRAN % 0.3 % (0.001-0.429); Lymphocyte (Absolute #) 1.66 x10^3/uL (1.18-3.74); Mean Corpuscular Hemoglobin 29.7 pg (25.6-32.2); Mean Corpuscular Hgb Concent. 32.5 g/dL (32.2-35.5); Monocyte (Absolute #) 0.64 x10^3/uL (0.24-0.86); NUCLEATED RBC # 0.00 x10^3u/L (0.00-0.012); NUCLEATED RBC % 0.0 % (0.00-0.2); Platelet Count 255 x10^3/uL (182-369); Red Blood Count 4.45 x10^6/uL (3.93-5.22); White Blood Count 6.7 x10^3/uL (3.98-10.04)
--- NOTE | 2024-12-15 14:06 | ERPHSYRPT ---
- History of Present Illness Time Seen by Provider: 12/15/24 13:34 Source: patient Exam Limitations: no limitations Patient Subjective Stated Complaint: pt here for not feel for a few days now, chills ,headache, restless legs. no nausea or vomiting, no co's of pain with urination Triage Nursing Assessment: pt alert, and oriented, arrived per ems from home, skin w/d/p. no cough, resp easy, chest clear, moves all ext well, no tremors, Physician History: Patient is here with several days of generalized malaise. She does not know how long she has been feeling unwell before. She states just a "couple" of days. No fever here. However, patient states that she has felt like she was warm at home. She last took an antipyretic last night, 81 mg of aspirin. She has no falls or trauma. No tachycardia here. States that she has a slight frontal headache. Describes it as a 4 out of 10. Has not taken any medication for it. She states that she is otherwise healthy does not complain of any active chest pain, nausea, vomiting. States she does have a history of restless legs. Patient is taking PO well. Same number of urinations and defecations. The patient has no signs of altered mental status, nuchal rigidity, signs of meningitis. The patient is up-to-date on all vaccinations. Allergies/Adverse Reactions: blue dye Allergy (Verified 12/15/24 13:32) levothyroxine sodium [From Synthroid] Allergy (Verified 12/15/24 13:32) Home Medications: PARoxetine HCL [Paroxetine HCl] 10 mg PO DAILY 10/25/18 [History] Isosorbide Mononitrate 30 mg [Imdur 30 MG] 30 mg PO DAILY 04/24/23 [History] Oxybutynin Chloride Xl 5 mg [Ditropan XL 5 MG] 2 tab PO BID 10/08/24 [History] Levothyroxine Sodium [Tirosint] 212 mcg PO DAILY 12/15/24 [History] Hx Tetanus, Diphtheria Vaccination/Date Given: No Hx Influenza Vaccination/Date Given: No Hx Pneumococcal Vaccination/Date Given: No Immunizations Up to Date: Yes Travel Risk - International Travel Have you traveled outside of the country in past 3 weeks: No - Emerging Infectious Disease Are you exhibiting symptoms associated with any current EIDs: No - Past Medical History Pertinent Past Medical History: Yes Neurological History: Seizures ENT History: No Pertinent History Cardiac History: Arrhythmia, Peripheral Vascular Disease Respiratory History: Sleep Apnea, Other, COPD, Asthma, Bronchitis Endocrine Medical History: No Pertinent History Musculoskeletal History: Osteoarthritis GI Medical History: GERD, Gallbladder Disease History: No Pertinent History Psycho-Social History: Anxiety, Bipolar, Depression Female Reproductive Disorders: No Pertinent History Other Medical History: Covid in August 2021 - Past Surgical History Past Surgical History: No Neuro Surgical History: No Pertinent History Cardiac: Other Respiratory: No Pertinent History Gastrointestinal: Cholecystectomy Genitourinary: No Pertinent History Musculoskeletal: No Pertinent History Female Surgical History: Other Other Surgical History: thyroid removed with "radioactive iodine pill". peripheral artery 2021. vaginal dysplasia surgery 2021 Significant Family History: no pertinent family hx - Female History Hx Last Menstrual Period: post Hx Now: No - Social History Smoking Status: Former smoker Exposure to second hand smoke: Yes Drug Use: none - Social Determinants of Health Will the patient participate in the screening: Yes Do you worry about a steady place to live?: No Do you have any problems with any of the following?: No known problems In the past 12 months,have you had to go without utilities?: Yes Transportation Issues: No Has anyone in your support network made you feel unsafe?: No Have you or anyone in your house had to go w/o enough food: No Comment: Stated she only has cold water. No hot water. Patient stated she has no say in resources that come to the house because it is not her house to bring people in. - Nursing Vital Signs Nursing Vital Signs: Initial Vital Signs Pulse Rate 74 12/15/24 13:32 Respiratory Rate 16 12/15/24 13:32 Blood Pressure 149/90 12/15/24 13:32 O2 Sat by Pulse Oximetry 98 12/15/24 13:32 Pain Scale Pain Intensity 3 - Physical Exam SpO2 Interpretation: normal SpO2: 97 Comments: 12/15/24 14:05 Review of Systems Constitutional: Negative for fever. HENT: Negative for congestion. Respiratory: Negative for shortness of breath. Cardiovascular: Negative for chest pain. Gastrointestinal: Negative for abdominal pain. Genitourinary: Negative for dysuria. Musculoskeletal: Negative for back pain. Skin: Negative for rash. Neurological: Negative for headaches. Psychiatric/Behavioral: Negative for behavioral problems. All other systems reviewed and are negative. Physical Exam Vitals signs and nursing note reviewed. Constitutional: Appearance: Patient is well-developed. HENT: Head: Normocephalic and atraumatic. Eyes: Conjunctiva/sclera: Conjunctivae normal. Neck: Musculoskeletal: Normal range of motion. Trachea: No tracheal deviation. Cardiovascular: Rate and Rhythm: Normal rate. Heart sounds normal. Pulmonary: Effort: Pulmonary effort is normal. No respiratory distress. Abdominal: Palpations: Abdomen is soft. Musculoskeletal: General: No deformity. Skin: General: Skin is warm and dry. Neurological/ Psychiatric: Mental Status: Mental status, behavior, interaction with environment is appropriate for patient's age and condition Motor: Patient lifts arms against gravity. Muscle strength and tone are normal Reflexes: Intact major reflexes Sensory: Light touch sensation intact throughout upper and lower extremities Coordination: Rapid alternating movements are intact. Normal [id number] Gait/Stance: Posture is normal, patient is sitting up in bed with normal strength - Course Nursing assessment & vital signs reviewed: Yes Ordered Tests: Active Orders 24 hr Category Date Time Status EKG-ER Only STAT Care 12/15/24 13:41 Active IV Insertion STAT Care 12/15/24 13:41 Active ACO SDOH Referral ONCE Cons 12/15/24 14:01 Active CHEST 1 VIEW (PORTABLE) Stat Exams 12/15/24 14:08 Taken HEAD WITHOUT CONTRAST [CT] Stat Exams 12/15/24 13:42 Completed CBC W DIFF Stat Lab 12/15/24 13:40 Completed CK-Creatinine Phosphokinase Stat Lab 12/15/24 13:40 Completed CMP Stat Lab 12/15/24 13:40 Completed CULTURE,URINE Stat Lab 12/15/24 13:42 Ordered ETHYL ALCOHOL Stat Lab 12/15/24 13:40 Completed LIPASE Stat Lab 12/15/24 13:40 Completed NT PRO BNPII Stat Lab 12/15/24 13:40 Completed TROPONIN Q4H Lab 12/15/24 13:40 Completed TROPONIN Q4H Lab 12/15/24 17:45 Ordered TROPONIN Q4H Lab 12/15/24 21:45 Ordered UA W/RFX UR CULTURE Stat Lab 12/15/24 15:15 Ordered Medication Summary Discontinued Medications Generic Name Dose Route Start Last Admin Trade Name Freq PRN Reason Stop Dose Admin Aspirin 324 mg 12/15/24 13:41 12/15/24 13:51 Aspirin 81 Mg Tab.Chew PO 12/15/24 13:42 324 mg STAT ONE Administration Aspirin Confirm 12/15/24 13:49 Aspirin 81 Mg Tab.Chew Administered 12/15/24 13:50 Dose 324 mg .ROUTE .STK-MED ONE Sodium Chloride 1,000 mls @ 999 mls/hr 12/15/24 13:41 12/15/24 15:17 Sodium Chloride 0.9% 1000 Ml IV 12/15/24 14:41 Infused .Q1H1M STA Infusion Lab/Rad Data: Laboratory Result Diagrams 12/15/24 13:40 12/15/24 13:40 Laboratory Results 12/15/24 12/15/24 12/15/24 Range/Units 13:50 13:40 13:40 WBC (3.98-10.04) x10^3/uL RBC (3.93-5.22) x10^6/uL Hgb (11.2-15.7) g/dL Hct (34.1-44.9) % MCV (79.4-94.8) fL MCH (25.6-32.2) pg MCHC (32.2-35.5) g/dL RDW (11.7-14.4) % Plt Count (182-369) x10^3/uL MPV (9.4-12.3) fL Gran % (34.0-71.1) % Immature Gran % (Auto) (0.001-0.429) % Nucleat RBC Rel Count (0.00-0.2) % Eos # (Auto) (0.04-0.36) x10^3/uL Immature Gran # (Auto) (0.001-0.031) x10^3u/L Absolute Lymphs (auto) (1.18-3.74) x10^3/uL Absolute Monos (auto) (0.24-0.86) x10^3/uL Absolute Nucleated RBC (0.00-0.012) x10^3u/L Lymphocytes % (19.3-51.7) % Monocytes % (4.7-12.5) % Eosinophils % (0.7-5.8) % Basophils % (0.1-1.2) % Absolute Granulocytes (1.56-6.13) x10^3/uL Basophils # (0.01-0.08) x10^3/uL Sodium 141 (135-145) mmol/L Potassium 4.2 (3.5-5.1) mmol/L Chloride 108 H (98-107) mmol/L Carbon Dioxide 23 (22-30) mmol/L Anion Gap 13.9 (5-15) MEQ/L BUN 20 H (7-17) mg/dL Creatinine 0.61 (0.52-1.04) mg/dL Estimated GFR 106.2 ML/MIN Glucose 95 (74-106) mg/dL Calcium 9.4 (8.4-10.2) mg/dL Total Bilirubin 0.40 (0.2-1.3) mg/dL AST 23 (14-36) U/L ALT 11 (0-35) U/L Alkaline Phosphatase 72 (38-126) U/L Creatine Kinase < 20 L (30-135) U/L Troponin I < 0.012 (0.000-0.033) ng/mL NT-Pro-B Natriuret Pep 115 (<300) pg/mL Serum Total Protein 6.9 (6.3-8.2) g/dL Albumin 4.0 (3.5-5.0) g/dL Lipase 103 (23-300) U/L Ethyl Alcohol < 10 (0-10) mg/dL Influenza Type A Ag NEGATIVE (NEGATIVE) Influenza Type B Ag NEGATIVE (NEGATIVE) RSV (PCR) NEGATIVE (NEGATIVE) SARS-CoV-2 (PCR) NEGATIVE (NEGATIVE) 12/15/24 Range/Units 13:40 WBC 6.7 (3.98-10.04) x10^3/uL RBC 4.45 (3.93-5.22) x10^6/uL Hgb 13.2 (11.2-15.7) g/dL Hct 40.6 (34.1-44.9) % MCV 91.2 (79.4-94.8) fL MCH 29.7 (25.6-32.2) pg MCHC 32.5 (32.2-35.5) g/dL RDW 11.9 (11.7-14.4) % Plt Count 255 (182-369) x10^3/uL MPV 10.6 (9.4-12.3) fL Gran % 64.5 (34.0-71.1) % Immature Gran % (Auto) 0.3 (0.001-0.429) % Nucleat RBC Rel Count 0.0 (0.00-0.2) % Eos # (Auto) 0.05 (0.04-0.36) x10^3/uL Immature Gran # (Auto) 0.02 (0.001-0.031) x10^3u/L Absolute Lymphs (auto) 1.66 (1.18-3.74) x10^3/uL Absolute Monos (auto) 0.64 (0.24-0.86) x10^3/uL Absolute Nucleated RBC 0.00 (0.00-0.012) x10^3u/L Lymphocytes % 24.6 (19.3-51.7) % Monocytes % 9.5 (4.7-12.5) % Eosinophils % 0.7 (0.7-5.8) % Basophils % 0.4 (0.1-1.2) % Absolute Granulocytes 4.34 (1.56-6.13) x10^3/uL Basophils # 0.03 (0.01-0.08) x10^3/uL Sodium (135-145) mmol/L Potassium (3.5-5.1) mmol/L Chloride (98-107) mmol/L Carbon Dioxide (22-30) mmol/L Anion Gap (5-15) MEQ/L BUN (7-17) mg/dL Creatinine (0.52-1.04) mg/dL Estimated GFR ML/MIN Glucose (74-106) mg/dL Calcium (8.4-10.2) mg/dL Total Bilirubin (0.2-1.3) mg/dL AST (14-36) U/L ALT (0-35) U/L Alkaline Phosphatase (38-126) U/L Creatine Kinase (30-135) U/L Troponin I (0.000-0.033) ng/mL NT-Pro-B Natriuret Pep (<300) pg/mL Serum Total Protein (6.3-8.2) g/dL Albumin (3.5-5.0) g/dL Lipase (23-300) U/L Ethyl Alcohol (0-10) mg/dL Influenza Type A Ag (NEGATIVE) Influenza Type B Ag (NEGATIVE) RSV (PCR) (NEGATIVE) SARS-CoV-2 (PCR) (NEGATIVE) - Progress Progress: improved Progress Note: 12/15/24 14:05 Differential diagnosis includes: PNA, STEMI, NSTEMI, other infection, musculoskeletal pain, pneumothorax, COVID, flu, RSV, head bleed, other viral illness - We'll obtain basic labs, fluids, EKG, troponin, chest x-ray, head CT - EKG shows no ST changes - my read - O2 saturations consistently greater than 95%. - CXR shows no pneumonia, pneumothorax - my read 12/15/24 15:49 Patient's headache is completely resolved at this point in time. Head CT was negative for acute stroke, head bleed, other abnormality. I did review all radiology images. See radiologist official read for full details. I did discuss results and all incidental findings with patient/family. They state their understanding and need for appropriate follow-up. Patient's viral swabs were negative, no other obvious signs of infection. I did discuss all this with the patient. We opted for conservative management and will have patient follow-up closely with PCP. Otherwise he will return here immediately for new or changing symptoms. Patient may have beginnings of a viral illness, she will monitor her symptoms closely at home and return here should anything change. Otherwise see PCP for reexam first thing tomorrow morning. Counseled pt/family regarding: lab results, diagnosis, need for follow-up, rad results - Departure Departure Disposition: Home Clinical Impression: Malaise and fatigue, Flu-like symptoms Condition: Stable Critical Care Time: No Referrals: LEE TORO MD [Primary Care Provider, [facility]] - Follow up/PCP as directed Instructions: Headache, Adult (DC) Additional Instructions: No obvious cause for your symptoms was found today. You should continue to monitor your symptoms at home. You may call 911 for any new or changing symptoms. Otherwise see your primary care doctor for reexam first thing tomorrow morning.
[2024-12-15 14:18] LABS: CK-Creatinine Phosphokinase < 20 U/L (30-135); Calcium 9.4 mg/dL (8.4-10.2); Carbon Dioxide 23 mmol/L (22-30); Creatinine 1 0.61 mg/dL (0.52-1.04); EST GLOMERULAR FILTRATION RATE 106.2 ML/MIN; ETHYL ALCOHOL < 10 mg/dL (0-10); Glucose 95 mg/dL (74-106); NT PRO BNPII 115 pg/mL (<300); Potassium 4.2 mmol/L (3.5-5.1); SGOT/AST 23 U/L (14-36); SGPT/ALT 11 U/L (0-35); Total Protein 6.9 g/dL (6.3-8.2)
[2024-12-15 14:32] LABS: INFLUENZA A NEGATIVE (NEGATIVE); INFLUENZA B NEGATIVE (NEGATIVE); RESPIRATORY SYNCTIAL VIRUS NEGATIVE (NEGATIVE); SARS-CoV-2 Xpert Express NEGATIVE (NEGATIVE)
--- NOTE | 2024-12-15 15:38 | XRAY ---
CLINICAL HISTORY: headache COMPARISON: With the prior study dated 10/09/2024. TECHNIQUE: Axial non-contrast CT scan of the brain was performed from the skull base to the high parietal region. One of the following dose reduction techniques was utilized for this exam: automated exposure control, adjustment of the mA and/or kV according to patient size, and use of iterative reconstruction. 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 These findings are stable. There is normal attenuation of the cerebral hemispheres, cerebellum, and brainstem. There is no evidence of acute infarct, hemorrhage, or mass effect. No abnormal areas of hypoattenuation or hyperattenuation are identified. Ventricular System: The ventricles are normal in size and configuration. There is no evidence of hydrocephalus or ventricular enlargement. Subarachnoid Spaces: The sulci and cisterns are normal. There is no evidence of subarachnoid hemorrhage or extra-axial fluid collections. Cerebellum and Brainstem: There are no masses, lesions, or areas of abnormal density. Orbits: There is normal appearance of the globes, optic nerves, and extraocular muscles. There is no evidence of orbital masses or abnormal density. Sinuses: The paranasal sinuses are clear. There is no evidence of sinusitis or mucosal thickening. Mastoid Air Cells: The mastoid air cells are clear. There is no evidence of mastoiditis. Skull: There is normal skull morphology. The nasal septum is deviated to the right side, with a bony spur noted. IMPRESSION: 1. 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 These findings are stable. 2. No newly developed lesion is appreciated. 3. No interval change since the prior MRI. Electronically Signed by: Santiago Valdez MD. (12/15/2024 15:37:43 EDT)
[2024-12-15 15:42] VITALS: O2SAT 97
[2024-12-15 16:24] VITALS: BP 119/77; PULSE 76; RESP 11
[2024-12-15 16:36] LABS: Glucose, Urine Negative (Negative); Protein,Urine Dip Negative (Negative); RBC 0-2 /HPF (0-5)
--- NOTE | 2024-12-15 19:19 | XRAY ---
Indication: Pneumonia. Comparison: March 20, 2023 Portable apical lordotic chest remains inflated and clear. Heart not enlarged. Bony thorax intact again with osteopenia and mild degenerative changes. No new/acute findings.
== END 2024-12-15 16:35 | disposition home or self-care (01) ==
LOC: ED 13:30
DX: R51.9 Headache, unspecified (principal); R53.81 Other malaise; R53.83 Other fatigue; Z79.899 Other long term (current) drug therapy; Z59.12 Inadequate housing utilities